=== PATIENT | female | born 1955 | race Caucasian/White ===

== ENCOUNTER 2021-08-20 12:23 | Inpatient (IN) | payer MEDICARE ==
[2021-08-20] MEDS ORDERED: Naloxone 0.4 MG/ML SDV IV PRN (13:49)
[2021-08-20] MEDS: Acetaminophen 500 MG Tab PO SCH ×2 (14:59→20:52)
[2021-08-20] MEDS: oxyCODONE 5 MG Tab PO PRN ×2 (15:01→22:15)
[2021-08-20] MEDS: Potassium Chloride 20 MEQ Tab.ER PO SCH (17:30)
[2021-08-20] MEDS: Gabapentin 600 MG Tab PO SCH (17:33)
--- NOTE | 2021-08-20 18:49 | PCM.HP.2 ---
H&P History of Present Illness - General Date of Service: 08/20/21 Admit Problem/Dx: Admission Diagnosis/Problem Admission Diagnosis/Problem Weakness Source of Information: Patient, Old Records, Provider History Limitations: Reports: No Limitations - History of Present Illness Initial Comments - Free Text/Narative: 66-year-old lady fractured her left arm and left hip following a mechanical fall. She had ORIF to repair her left arm fracture and has been transferred to swing bed for rehabilitation. Mechanical fall was on 13 August 2021. Patient's hospital course was complicated by minor delirium treated with Haldol which resulted in a long QTc. The symptoms have resolved following treatment. Patient also had blood loss anemia which is now improving. Postop day 1 hemoglobin was 10.8 and was 11.6 this morning. Transferring hospital reports that operative site for the ORIF of the left arm is intact with no bleeding, erythema, signs of infection, or discharge. Patient has chronic pulmonary symptoms including bronchitis and asthma. She has follow-up appointment scheduled with pulmonology. Patient had coronary ablation in 2007 now treated with metoprolol, well controlled. Transferring hospital recommends recheck electrolytes in 3 days. Patient's rhythm was sinus rhythm in the 60s to 70s throughout her stay. Left Hip Pain Score (Numeric/FACES): 6 - Related Data Allergies/Adverse Reactions: Allergies Allergy/AdvReac Type Severity Reaction Status Date / Time adhesive tape Allergy Rash Verified 08/20/21 14:36 omeprazole [From Prilosec] Allergy Nausea Verified 08/20/21 14:36 Home Medications: Home Meds Acetaminophen [Tylenol Extra Strength] 1,000 mg PO TID 08/20/21 [History] Aspirin [Ecotrin EC] 81 mg PO DAILY 08/20/21 [History] Azelastine HCl 2 spray NASBOTH DAILY 08/20/21 [History] Benzonatate 200 mg PO TID PRN 08/20/21 [History] Budesonide [Pulmicort] 2 ml INH BID 08/20/21 [History] Calcium Carbonate [Calcium] 600 mg PO DAILY 08/20/21 [History] Celecoxib [CeleBREX] 400 mg PO DAILY 08/20/21 [History] Enoxaparin [Lovenox] 40 mg SQ Q24H 08/20/21 [History] Escitalopram Oxalate [Lexapro] 10 mg PO DAILY 08/20/21 [History] Formoterol [Perforomist] 2 ml INH BID 08/20/21 [History] Gabapentin [Neurontin] 300 mg PO DAILY 08/20/21 [History] Gabapentin [Neurontin] 600 mg PO WITHDINNER 08/20/21 [History] Lansoprazole [Prevacid] 30 mg PO DAILY 08/20/21 [History] Letrozole [Femara] 2.5 mg PO DAILY 08/20/21 [History] Levalbuterol Tartrate [Xopenex HFA] 2 puff PO Q4H PRN 08/20/21 [History] Levothyroxine 25 mcg PO BEDTIME 08/20/21 [History] Melatonin 6 mg PO BEDTIME 08/20/21 [History] Metoprolol Succinate [Toprol XL] 12.5 mg PO DAILY 08/20/21 [History] Montelukast [Singulair] 10 mg PO DAILY 08/20/21 [History] Naloxone [Narcan] 0.4 mg IV ASDIRECTED PRN 08/20/21 [History] [place]-3 Fatty Acids/Fish Oil [Fish Oil 1,000 mg Capsule] 1 cap PO DAILY 08/20/21 [History] Potassium Chloride [Klor-Con M20] 20 meq PO DAILY 08/20/21 [History] Potassium Chloride [Klor-Con M20] 40 meq PO WITHDINNER 08/20/21 [History] SUMAtriptan 100 mg PO ASDIRECTED 08/20/21 [History] Sennosides/Docusate Sodium [Senna-S 8.6-50 mg Tablet] 1 tab PO BID 08/20/21 [History] Spironolactone [Aldactone] 12.5 mg PO DAILY 08/20/21 [History] Tiotropium [place] [Spiriva Respimat] 2 puff INH DAILY 08/20/21 [History] Topiramate 25 mg PO DAILY 08/20/21 [History] Topiramate 50 mg PO BEDTIME 08/20/21 [History] atorvaSTATin [Lipitor] 20 mg PO DAILY 08/20/21 [History] guaiFENesin [Robitussin] 10 ml PO Q6H PRN 08/20/21 [History] oxyCODONE 2.5 mg PO Q6H PRN 08/20/21 [History] oxyCODONE 5 mg PO Q6H PRN 08/20/21 [History] polyethylene glycoL 3350 [MiraLAX] 17 g PO DAILY 08/20/21 [History] traZODone HCl [Trazodone HCl] 50 mg PO BEDTIME 08/20/21 [History] Past Medical History HEENT History: Reports: None Other HEENT History: seasonal allergies Cardiovascular History: Reports: Hypertension Respiratory History: Reports: None Gastrointestinal History: Reports: GERD Genitourinary History: Reports: None W[employer] INST[employer]ER History: Reports: Dysfunctional Uterine Bleeding Musculoskeletal History: Reports: None Neurological History: Reports: None Hematologic History: Reports: Anesthesia Reaction Oncologic (Cancer) History: Reports: Breast - Past Surgical History HEENT Surgical History: Reports: None Cardiovascular Surgical History: Reports: None Female Surgical History: Reports: None Neurological Surgical History: Reports: None Musculoskeletal Surgical History: Reports: ORIF Social & Family History - Family History Cardiac: Reports: Hypertension GI: Reports: None OBGYN: Reports: None Musculoskeletal: Reports: None Psychiatric: Reports: None Immunologic: Reports: None Oncologic: Reports: Brain, Breast - Tobacco Use Tobacco Use Status *Q: Never Tobacco User Second Hand Smoke Exposure: No - Caffeine Use Caffeine Use: Reports: None - Recreational Drug Use Recreational Drug Use: No H&P Review of Systems - Review of Systems: Review Of Systems: See Below General: Reports: No Symptoms HEENT: Reports: No Symptoms Pulmonary: Reports: No Symptoms Cardiovascular: Reports: No Symptoms Gastrointestinal: Reports: No Symptoms Genitourinary: Reports: No Symptoms Musculoskeletal: Reports: Shoulder Pain, Arm Pain, Leg Pain Psychiatric: Reports: No Symptoms Neurological: Reports: No Symptoms Hematologic/Lymphatic: Reports: No Symptoms Immunologic: Reports: No Symptoms Exam - Exam Exam: See Below - Vital Signs Vital Signs: Last Vital Signs Temp 36.9 C 08/20/21 13:47 Pulse 72 08/20/21 13:47 Resp 20 08/20/21 13:47 BP 102/42 L 08/20/21 13:47 Pulse Ox 94 L 08/20/21 13:47 Weight: 100.199 kg - Exam Quality Assessment: Supplemental Oxygen, DVT Prophylaxis General: Alert, Oriented, Cooperative, Mild Distress HEENT: EOMI Lungs: Clear to Auscultation Cardiovascular: Regular Rate, Regular Rhythm, Systolic Murmur GI/Abdominal Exam: Normal Bowel Sounds, Soft, Non-Tender Back Exam: Normal Inspection. No: CVA Tenderness (R), CVA Tenderness (L) Extremities: Pedal Edema Peripheral Pulses: 2+: Radial (L), Radial (R), Dorsalis Pedis (L), Dorsalis Pedis (R) Skin: Warm, Dry Neurological: Cranial Nerves Intact Neuro Extensive - Mental Status: Alert, Oriented x3, Normal Mood/Affect, Normal Cognition Psychiatric: Alert, Normal Affect, Normal Mood Sepsis Event Note - Evaluation Sepsis Screening Result: No Definite Risk - Focused Exam Vital Signs: Vital Signs Temp Pulse Resp BP Pulse Ox 08/20/21 13:47 36.9 C 72 20 102/42 L 94 L - Problem List (1) Arm fracture, left SNOMED Code(s): 52187658 ICD Code: S42.302A - UNSP FRACTURE OF SHAFT OF HUMERUS, LEFT ARM, INIT Status: Acute Current Visit: Yes (2) Status post open reduction and internal fixation (ORIF) of fracture SNOMED Code(s): 758362507 ICD Code: Z98.890 - OTHER SPECIFIED POSTPROCEDURAL STATES; Z87.81 - PERSONAL HISTORY OF (HEALED) TRAUMATIC FRACTURE Status: Acute Current Visit: Yes (3) Acute blood loss anemia SNOMED Code(s): 977255746 ICD Code: D62 - ACUTE POSTHEMORRHAGIC ANEMIA Status: Acute Current Visit: Yes (4) Arrhythmia SNOMED Code(s): 517392612 ICD Code: I49.9 - CARDIAC ARRHYTHMIA, UNSPECIFIED Status: Chronic Current Visit: Yes (5) Asthma SNOMED Code(s): 127289773 ICD Code: J45.909 - UNSPECIFIED ASTHMA, UNCOMPLICATED Status: Chronic Current Visit: Yes (6) Closed left hip fracture SNOMED Code(s): 756750411 ICD Code: S72.002A - FRACTURE OF UNSP PART OF NECK OF LEFT FEMUR, INIT Status: Acute Current Visit: Yes (7) Weakness SNOMED Code(s): 97289935 ICD Code: R53.1 - WEAKNESS Status: Acute Current Visit: Yes (8) Obesity (BMI 30.0-34.9) SNOMED Code(s): 283366762790967 ICD Code: E66.9 - OBESITY, UNSPECIFIED Status: Chronic Current Visit: Yes (9) Hyperlipidemia SNOMED Code(s): 35051114 ICD Code: E78.5 - HYPERLIPIDEMIA, UNSPECIFIED Status: Chronic Current Visit: Yes (10) Hypothyroidism SNOMED Code(s): 91652805 ICD Code: E03.9 - HYPOTHYROIDISM, UNSPECIFIED Status: Chronic Current Visit: Yes Problem List Initiated/Reviewed/Updated: Yes Orders Last 24hrs: Active Orders 24 hr Category Date Time Status Patient Status [ADT] Routine ADT 08/20/21 13:47 Active Height and Weight [RC] WEEKLY Care 08/20/21 13:47 Active Oxygen Therapy [RC] PRN Care 08/20/21 13:47 Active RT Aerosol Therapy [RC] ASDIRECTED Care 08/20/21 13:55 Active Supplement (Dietary) [Dietary Supplements] [RC] Care 08/20/21 18:43 Ordered WITHMEALSANDBED VTE/DVT Education [RC] Per Unit Routine Care 08/20/21 13:47 Active Vital Signs [RC] PER UNIT ROUTINE Care 08/20/21 13:47 Active OT Evaluation and Treatment [CONS] Routine Cons 08/20/21 18:42 Ordered PT Evaluation and Treatment [CONS] Routine Cons 08/20/21 18:42 Ordered Regular Diet [DIET] Diet 08/21/21 Breakfast Ordered Acetaminophen [Tylenol Extra Strength] Med 08/20/21 15:00 Active 1,000 mg PO TID Arformoterol [Brovana] Med 08/20/21 21:00 Active 15 mcg INH BID Aspirin [Halfprin] Med 09/12/21 09:00 Active 81 mg PO DAILY Budesonide [Pulmicort] Med 08/20/21 21:00 Active 0.5 mg INH BID Calcium Carbonate [Oyster Shell Calcium] Med 08/21/21 09:00 Active 500 mg PO DAILY Celecoxib [CeleBREX] Med 08/21/21 09:00 Active 400 mg PO DAILY Docusate Sodium/Sennosides [Senna Plus] Med 08/20/21 21:00 Active 1 tab PO BID Enoxaparin [Lovenox] Med 08/21/21 09:00 Active 40 mg SUBCUT Q24H Escitalopram [Lexapro] Med 08/21/21 09:00 Active 10 mg PO DAILY Gabapentin [Neurontin] Med 08/21/21 09:00 Active 300 mg PO DAILY Gabapentin [Neurontin] Med 08/20/21 18:00 Active 600 mg PO WITHDINNER Letrozole [Femara] Med 08/21/21 09:00 Active 2.5 mg PO DAILY Levothyroxine Med 08/20/21 21:00 Active 25 mcg PO BEDTIME Melatonin Med 08/20/21 21:00 Active 6 mg PO BEDTIME Metoprolol Succinate [Toprol XL] Med 08/21/21 09:00 Active 12.5 mg PO DAILY Montelukast [Singulair] Med 08/21/21 09:00 Active 10 mg PO DAILY Naloxone [Narcan] Med 08/20/21 13:49 Active 0.4 mg IV ASDIRECTED PRN Pantoprazole [ProTONIX] Med 08/21/21 07:30 Active 40 mg PO ACBREAKFAST Potassium Chloride [Klor-Con M20] Med 08/21/21 09:00 Active 20 meq PO DAILY Potassium Chloride [Klor-Con M20] Med 08/20/21 18:00 Active 40 meq PO WITHDINNER Spironolactone [Aldactone] Med 08/21/21 09:00 Active 12.5 mg PO DAILY Tiotropium [place] [Spiriva Respimat] Med 08/21/21 09:00 Active 0 gm INH DAILY Topiramate [Topamax] Med 08/21/21 09:00 Active 25 mg PO DAILY Topiramate [Topamax] Med 08/20/21 21:00 Active 50 mg PO BEDTIME atorvaSTATin [Lipitor] Med 08/21/21 09:00 Active 20 mg PO DAILY guaiFENesin [Robitussin] Med 08/20/21 13:49 Active 200 mg PO Q6H PRN levalbuterol HCL [Xopenex] Med 08/20/21 14:31 Active 1.25 mg INH Q4H PRN oxyCODONE Med 08/20/21 13:49 Active 2.5 mg PO Q6H PRN oxyCODONE Med 08/20/21 13:49 Active 5 mg PO Q6H PRN polyethylene glycoL 3350 [MiraLAX] Med 08/21/21 09:00 Active 17 gm PO DAILY traZODone Med 08/20/21 21:00 Active 50 mg PO BEDTIME Resuscitation Status Routine Resus Stat 08/20/21 13:47 Ordered Medication Orders Acetaminophen (Acetaminophen 500 Mg Tab) 1,000 mg PO TID [facility] Last Admin: 08/20/21 14:59 Dose: 1,000 mg Documented by: [place] Arformoterol Tartrate (Arformoterol 15 Mcg/2 Ml Neb Soln) 15 mcg INH BID [facility] Aspirin (Aspirin 81 Mg Tab.Ec) 81 mg PO DAILY [facility] Atorvastatin Calcium (Atorvastatin 20 Mg Tab) 20 mg PO DAILY [facility] Budesonide (Budesonide 0.5 Mg/2 Ml Neb Susp) 0.5 mg INH BID [facility] Calcium Carbonate/Glycine (Calcium Carbonate 500 Mg Tablet) 500 mg PO DAILY [facility] Celecoxib (Celecoxib 200 Mg Cap) 400 mg PO DAILY [facility] Enoxaparin Sodium (Enoxaparin 40 Mg/0.4 Ml Syringe) 40 mg SUBCUT Q24H [facility] Stop: 09/11/21 23:59 Escitalopram Oxalate (Escitalopram 10 Mg Tab) 10 mg PO DAILY [facility] Gabapentin (Gabapentin 300 Mg Cap) 300 mg PO DAILY [facility] Gabapentin (Gabapentin 600 Mg Tab) 600 mg PO WITHDINNER [facility] Last Admin: 08/20/21 17:33 Dose: 600 mg Documented by: [place] Guaifenesin (Guaifenesin 100 Mg/5 Ml Soln 5 Ml Ud Cup) 200 mg PO Q6H PRN PRN Reason: Cough Letrozole (Letrozole 2.5 Mg Tab) 2.5 mg PO DAILY [facility] Levalbuterol HCl (Levalbuterol Hcl 1.25 Mg/3 Ml Neb) 1.25 mg INH Q4H PRN PRN Reason: Shortness of Breath Levothyroxine Sodium (Levothyroxine 25 Mcg Tab) 25 mcg PO BEDTIME [facility] Melatonin (Melatonin 3 Mg Tab) 6 mg PO BEDTIME [facility] Metoprolol Succinate (Metoprolol Succinate 25 Mg Tab.Er) 12.5 mg PO DAILY [facility] Montelukast Sodium (Montelukast 10 Mg Tab) 10 mg PO DAILY [facility] Naloxone HCl (Naloxone 0.4 Mg/Ml Sdv) 0.4 mg IV ASDIRECTED PRN PRN Reason: Other Oxycodone HCl (Oxycodone 5 Mg Tab) 2.5 mg PO Q6H PRN PRN Reason: Pain (moderate 4-6) Oxycodone HCl (Oxycodone 5 Mg Tab) 5 mg PO Q6H PRN PRN Reason: Pain (severe 7-10) Last Admin: 08/20/21 15:01 Dose: 5 mg Documented by: [place] Pantoprazole Sodium (Pantoprazole 40 Mg Tab.Cr) 40 mg PO ACBREAKFAST [facility] Polyethylene Glycol (Polyethylene Glycol 3350 Powder 17 Gm Packet) 17 gm PO DAILY [facility] Potassium Chloride (Potassium Chloride 20 Meq Tab.Er) 20 meq PO DAILY [facility] Potassium Chloride (Potassium Chloride 20 Meq Tab.Er) 40 meq PO WITHDINNER [facility] Last Admin: 08/20/21 17:30 Dose: 40 meq Documented by: [place] Senna/Docusate Sodium (Docusate Sodium/Sennosides 50-8.6 Mg Tab) 1 tab PO BID [facility] Spironolactone (Spironolactone 25 Mg Tab) 12.5 mg PO DAILY [facility] Tiotropium [place] (Tiotropium [place] 4 Gm Inhalation [place] (2.5mcg/1 Dose; 10 Doses)) 0 gm INH DAILY [facility] Topiramate (Topiramate 50 Mg Tab) 50 mg PO BEDTIME [facility] Topiramate (Topiramate 50 Mg Tab) 25 mg PO DAILY [facility] Trazodone HCl (Trazodone 50 Mg Tab) 50 mg PO BEDTIME [facility] Assessment/Plan Comment:: Patient admitted to swing bed for rehabilitation secondary to fracture of the left hip and left arm secondary to mechanical fall. Restart patient's home medications for chronic diseases. Patient will have follow-up with pulmonology due to chronic lung disease. Recheck electrolytes in 3 days secondary to history of cardiac arrhythmia with ablation procedure in 2007. Recheck hemoglobin/hematocrit secondary to history of acute blood loss anemia following fractures and surgery.
[2021-08-20] MEDS: traZODone 50 MG Tab PO SCH (20:52)
[2021-08-20] MEDS: Melatonin 3 MG Tab PO SCH (20:52)
[2021-08-20] MEDS: Levothyroxine 25 MCG Tab PO SCH (20:52)
[2021-08-20] MEDS: Topiramate 50 MG Tab PO SCH (20:52)
[2021-08-20] MEDS: Budesonide 0.5 MG/2 ML Neb Susp INH SCH (20:53)
[2021-08-20] MEDS: Arformoterol 15 MCG/2 ML Neb Soln INH SCH (20:53)
[2021-08-21] MEDS ORDERED: SUMAtriptan 50 MG Tab PO PRN (02:20)
[2021-08-21] MEDS: Pantoprazole 40 MG Tab.CR PO SCH (07:00)
[2021-08-21] MEDS: oxyCODONE 5 MG Tab PO PRN (08:15)
[2021-08-21] MEDS: Gabapentin 300 MG Cap PO SCH (08:15)
[2021-08-21] MEDS: Celecoxib 200 MG Cap PO SCH (08:31)
[2021-08-21] MEDS: Potassium Chloride 20 MEQ Tab.ER PO SCH ×2 (08:31→17:37)
[2021-08-21] MEDS: atorvaSTATin 20 MG Tab PO SCH (08:31)
[2021-08-21] MEDS: Montelukast 10 MG Tab PO SCH (08:31)
[2021-08-21] MEDS: Spironolactone 25 MG Tab PO SCH (08:31)
[2021-08-21] MEDS: Calcium Carbonate 500 MG Tablet PO SCH (08:31)
[2021-08-21] MEDS: Tiotropium Bromide 4 GM Inhalation Spray (2.5mcg/1 dose; 10 doses) INH SCH (08:31)
[2021-08-21] MEDS: Acetaminophen 500 MG Tab PO SCH ×3 (08:31→19:59)
[2021-08-21] MEDS: Escitalopram 10 MG Tab PO SCH (08:31)
[2021-08-21] MEDS: Enoxaparin 40 MG/0.4 ML Syringe SUBCUT SCH (08:32)
[2021-08-21] MEDS: Polyethylene Glycol 3350 Powder 17 GM Packet PO SCH (08:32)
[2021-08-21] MEDS: Arformoterol 15 MCG/2 ML Neb Soln INH SCH ×2 (08:32→20:03)
[2021-08-21] MEDS: Topiramate 50 MG Tab PO SCH ×2 (08:32→20:02)
[2021-08-21] MEDS: Budesonide 0.5 MG/2 ML Neb Susp INH SCH ×2 (08:32→20:01)
[2021-08-21] MEDS: Metoprolol Succinate 25 MG Tab.ER PO SCH (08:33)
[2021-08-21] MEDS ORDERED: Non-Formulary Medication 1 Each (Azelastine Hcl [Azelastine Hcl] 137 MCG/0.137 ML Spray.Pu NASBOTH SCH (09:00)
[2021-08-21] MEDS: Gabapentin 600 MG Tab PO SCH (17:36)
[2021-08-21] MEDS: Levothyroxine 25 MCG Tab PO SCH (20:00)
[2021-08-21] MEDS: Melatonin 3 MG Tab PO SCH (20:00)
[2021-08-21] MEDS: traZODone 50 MG Tab PO SCH (20:03)
[2021-08-22] MEDS: Pantoprazole 40 MG Tab.CR PO SCH (06:37)
[2021-08-22] MEDS: oxyCODONE 5 MG Tab PO PRN ×3 (08:02→21:16)
[2021-08-22] MEDS: Tiotropium Bromide 4 GM Inhalation Spray (2.5mcg/1 dose; 10 doses) INH SCH (08:04)
[2021-08-22] MEDS: Spironolactone 25 MG Tab PO SCH (08:10)
[2021-08-22] MEDS: Celecoxib 200 MG Cap PO SCH (08:11)
[2021-08-22] MEDS: Arformoterol 15 MCG/2 ML Neb Soln INH SCH ×2 (08:11→20:20)
[2021-08-22] MEDS: atorvaSTATin 20 MG Tab PO SCH (08:12)
[2021-08-22] MEDS: Potassium Chloride 20 MEQ Tab.ER PO SCH ×2 (08:12→17:48)
[2021-08-22] MEDS: Escitalopram 10 MG Tab PO SCH (08:12)
[2021-08-22] MEDS: Gabapentin 300 MG Cap PO SCH (08:13)
[2021-08-22] MEDS: Calcium Carbonate 500 MG Tablet PO SCH (08:13)
[2021-08-22] MEDS: Enoxaparin 40 MG/0.4 ML Syringe SUBCUT SCH (08:13)
[2021-08-22] MEDS: Polyethylene Glycol 3350 Powder 17 GM Packet PO SCH (08:13)
[2021-08-22] MEDS: Topiramate 50 MG Tab PO SCH ×2 (08:14→20:19)
[2021-08-22] MEDS: Montelukast 10 MG Tab PO SCH (08:14)
[2021-08-22] MEDS: Budesonide 0.5 MG/2 ML Neb Susp INH SCH ×2 (08:14→20:20)
[2021-08-22] MEDS: Metoprolol Succinate 25 MG Tab.ER PO SCH (08:15)
[2021-08-22] MEDS: Acetaminophen 500 MG Tab PO SCH ×3 (08:15→20:24)
[2021-08-22] MEDS: Gabapentin 600 MG Tab PO SCH (17:49)
[2021-08-22] MEDS: Levothyroxine 25 MCG Tab PO SCH (20:18)
[2021-08-22] MEDS: traZODone 50 MG Tab PO SCH (20:19)
[2021-08-22] MEDS: Melatonin 3 MG Tab PO SCH (20:19)
[2021-08-23] MEDS: oxyCODONE 5 MG Tab PO PRN ×3 (03:50→17:49)
[2021-08-23] MEDS: Pantoprazole 40 MG Tab.CR PO SCH (08:12)
[2021-08-23] MEDS: Gabapentin 300 MG Cap PO SCH (08:12)
[2021-08-23] MEDS: Tiotropium Bromide 4 GM Inhalation Spray (2.5mcg/1 dose; 10 doses) INH SCH (08:13)
[2021-08-23] MEDS: Arformoterol 15 MCG/2 ML Neb Soln INH SCH ×2 (08:14→20:13)
[2021-08-23] MEDS: Spironolactone 25 MG Tab PO SCH (08:16)
[2021-08-23] MEDS: Enoxaparin 40 MG/0.4 ML Syringe SUBCUT SCH (08:18)
[2021-08-23] MEDS: Escitalopram 10 MG Tab PO SCH (08:18)
[2021-08-23] MEDS: Potassium Chloride 20 MEQ Tab.ER PO SCH ×2 (08:18→17:48)
[2021-08-23] MEDS: atorvaSTATin 20 MG Tab PO SCH (08:18)
[2021-08-23] MEDS: Calcium Carbonate 500 MG Tablet PO SCH (08:19)
[2021-08-23] MEDS: Celecoxib 200 MG Cap PO SCH (08:19)
[2021-08-23] MEDS: Polyethylene Glycol 3350 Powder 17 GM Packet PO SCH (08:19)
[2021-08-23] MEDS: Budesonide 0.5 MG/2 ML Neb Susp INH SCH ×2 (08:20→20:13)
[2021-08-23] MEDS: Topiramate 50 MG Tab PO SCH ×2 (08:21→20:14)
[2021-08-23] MEDS: Acetaminophen 500 MG Tab PO SCH ×3 (08:22→20:14)
[2021-08-23] MEDS: Montelukast 10 MG Tab PO SCH (08:23)
[2021-08-23] MEDS: guaiFENesin 100 MG/5 ML Soln 5 ML UD Cup PO PRN (08:23)
[2021-08-23] MEDS: Metoprolol Succinate 25 MG Tab.ER PO SCH (08:29)
[2021-08-23] MEDS: Levalbuterol HCl 1.25 MG/3 ML Neb INH PRN (14:30)
[2021-08-23] MEDS ORDERED: Albuterol 8 GM Inhaler INH PRN (15:46)
[2021-08-23] MEDS: Gabapentin 600 MG Tab PO SCH (17:48)
[2021-08-23] MEDS: Melatonin 3 MG Tab PO SCH (20:13)
[2021-08-23] MEDS: Levothyroxine 25 MCG Tab PO SCH (20:13)
[2021-08-23] MEDS: traZODone 50 MG Tab PO SCH (20:14)
[2021-08-24] MEDS: oxyCODONE 5 MG Tab PO PRN ×2 (06:19→22:30)
[2021-08-24] MEDS: Pantoprazole 40 MG Tab.CR PO SCH (06:52)
[2021-08-24] MEDS ORDERED: Bisacodyl 10 MG Supp RECTAL PRN (07:42)
[2021-08-24] MEDS: Tiotropium Bromide 4 GM Inhalation Spray (2.5mcg/1 dose; 10 doses) INH SCH (09:27)
[2021-08-24] MEDS: Budesonide 0.5 MG/2 ML Neb Susp INH SCH ×2 (09:27→20:00)
[2021-08-24] MEDS: Arformoterol 15 MCG/2 ML Neb Soln INH SCH ×2 (09:27→20:00)
[2021-08-24] MEDS: Metoprolol Succinate 25 MG Tab.ER PO SCH (09:31)
[2021-08-24] MEDS: atorvaSTATin 20 MG Tab PO SCH (09:31)
[2021-08-24] MEDS: Spironolactone 25 MG Tab PO SCH (09:31)
[2021-08-24] MEDS: Montelukast 10 MG Tab PO SCH (09:31)
[2021-08-24] MEDS: Calcium Carbonate 500 MG Tablet PO SCH (09:32)
[2021-08-24] MEDS: Escitalopram 10 MG Tab PO SCH (09:32)
[2021-08-24] MEDS: Acetaminophen 500 MG Tab PO SCH ×3 (09:33→20:00)
[2021-08-24] MEDS: Celecoxib 200 MG Cap PO SCH (09:33)
[2021-08-24] MEDS: Potassium Chloride 20 MEQ Tab.ER PO SCH ×2 (09:34→17:05)
[2021-08-24] MEDS: Topiramate 50 MG Tab PO SCH ×2 (09:34→20:01)
[2021-08-24] MEDS: Polyethylene Glycol 3350 Powder 17 GM Packet PO SCH (09:35)
[2021-08-24] MEDS: Enoxaparin 40 MG/0.4 ML Syringe SUBCUT SCH (09:35)
[2021-08-24] MEDS: Gabapentin 300 MG Cap PO SCH (09:40)
[2021-08-24] MEDS: Gabapentin 600 MG Tab PO SCH (17:08)
[2021-08-24] MEDS: Levothyroxine 25 MCG Tab PO SCH (20:00)
[2021-08-24] MEDS: Melatonin 3 MG Tab PO SCH (20:00)
[2021-08-24] MEDS: traZODone 50 MG Tab PO SCH (20:01)
[2021-08-25] MEDS: Pantoprazole 40 MG Tab.CR PO SCH (07:31)
[2021-08-25] MEDS ORDERED: Albuterol 8 GM Inhaler INH PRN (07:57)
[2021-08-25] MEDS: Metoprolol Succinate 25 MG Tab.ER PO SCH (08:35)
[2021-08-25] MEDS: Spironolactone 25 MG Tab PO SCH (08:35)
[2021-08-25] MEDS: Escitalopram 10 MG Tab PO SCH (08:37)
[2021-08-25] MEDS: Celecoxib 200 MG Cap PO SCH (08:37)
[2021-08-25] MEDS: Topiramate 50 MG Tab PO SCH ×2 (08:37→20:07)
[2021-08-25] MEDS: Acetaminophen 500 MG Tab PO SCH ×3 (08:38→20:07)
[2021-08-25] MEDS: Potassium Chloride 20 MEQ Tab.ER PO SCH ×2 (08:38→17:45)
[2021-08-25] MEDS: Tiotropium Bromide 4 GM Inhalation Spray (2.5mcg/1 dose; 10 doses) INH SCH (08:39)
[2021-08-25] MEDS: Calcium Carbonate 500 MG Tablet PO SCH (08:41)
[2021-08-25] MEDS: Budesonide 0.5 MG/2 ML Neb Susp INH SCH ×2 (08:41→20:09)
[2021-08-25] MEDS: Montelukast 10 MG Tab PO SCH (08:41)
[2021-08-25] MEDS: Arformoterol 15 MCG/2 ML Neb Soln INH SCH ×2 (08:42→20:09)
[2021-08-25] MEDS: Enoxaparin 40 MG/0.4 ML Syringe SUBCUT SCH (08:42)
[2021-08-25] MEDS: atorvaSTATin 20 MG Tab PO SCH (08:42)
[2021-08-25] MEDS: Polyethylene Glycol 3350 Powder 17 GM Packet PO SCH (08:42)
[2021-08-25] MEDS: Gabapentin 300 MG Cap PO SCH (08:43)
[2021-08-25] MEDS: oxyCODONE 5 MG Tab PO PRN ×2 (08:45→20:10)
--- OUTSIDE RECORDS SUMMARY | 2021-08-25 15:48 | XMSREPORT ---
:1955 Author Organization 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 Pt r an into hitch of pickup falling to ground. Sustained radial ulnar fx/le ft hip fx. Arrives in c-collar. CMS intact to L hand and L leg Auth/Cert Status Reason Specialty Diagnoses / Procedures Referred By C ontact Referred To Contact Encounter Details Date Type Department Care Team Description 08/13/2021 - Hospital Encounter [facility] Department [address] [place] [address] [phone] Wrist fracture 08/20/[address] Suresh Regalado MD [address] [place] [address] [phone] Alicia Jerome MD [address] [place] [address] [phone] [facility] Jr Joiner MD [address], [place] [address] [phone] [place] [address] Vivian Kong MD [address] [place] [address] [phone] Allergies Active Allergy Reactions Severity Noted Date Comments Adhesives Rash Medium 06/18/2021 Omeprazole Nausea 09/16/2017 documented as of this encounter (statuses as of 08/20/2021) Medications Medication Sig Dispensed Refills Start End Status Date Date acetaminophen Take 2 tablets 0 08/20/20 A ctive (TYLENOL) 500 mg (1,000 mg) by 21 tabletIndications: mouth 3 times a Left displaced day femoral neck fracture (HCC), Hyperlipidemia, unspecified hyperlipidemia type aspirin 81 mg Take 1 tablet (81 30 tablet 0 08/20/20 Active enteric coated mg) by mouth 1 21 tabletIndications: time per day History of Resume home cardiovascular aspirin 81 mg disorder daily on 09/12/2021 after completing DVT prophylaxis with Lovenox SC for 28 days post-op acetaminophen-codei Take 1 tablet by 30 tablet 0 08/20/20 Active ne #3 (TYLENOL #3) mouth Every 8 21 300-30 MG tablet hours as needed for severe pain HYDROmorphone Administer 0.5 mL 0 08/20/20 Active (DILAUDID) 0.5 (0.5 mg) 21 mg/0.5 mL SOLN intravenously injection solution Every 4 hours as (conc: 0.5 needed for mg/0.5mL)Indication breakthrough pain s: Left displaced femoral neck fracture (HCC), Hyperlipidemia, unspecified hyperlipidemia type oxyCODONE (OXY-IR) Take 0.5 tablets 0 08/20/20 Active 5 mg tablet (2.5 mg) by mouth 21 (immediate every 6 hours as release)Indications needed for : Left displaced moderate pain femoral neck fracture (HCC), Hyperlipidemia, unspecified hyperlipidemia type oxyCODONE (OXY-IR) Take 1 tablet (5 12 tablet 0 08/20/20 10/0 2/2 Active 5 mg tablet mg) by mouth 21 021 (immediate every 6 hours as release)Indications needed for severe : Hyperlipidemia, pain for up to 3 unspecified days hyperlipidemia type celecoxib Take 1 capsule 0 08/20/20 Activ e (CELEBREX) 400 mg (400 mg) by mouth 21 capsule 1 time per day budesonide Inhale 2 nebule 0 08/20/20 Act taye (PULMICORT) 0.5 (1 mg) by 21 022 mg/2 mL inhalation nebulization 2 solutionIndications times a day Rinse : Chronic mouth with water bronchitis, after use. unspecified chronic bronchitis type (HCC) budesonide-formoter Inhale 2 puffs 0 08/20/20 Active ol (SYMBICORT) orally 2 times a 21 160-4.5 mcg/puff day Shake well inhalerIndications: before using. Chronic bronchitis, Rinse mouth after unspecified chronic use. bronchitis type (HCC) SPIRIVA RESPIMAT Inhale 2 puffs (1 0 08/20/20 Active 1.25 MCG/ACT dose) EVERY DAY 21 inhaler (Asthma)Indications : Chronic bronchitis, unspecified chronic bronchitis type (HCC) PERFOROMIST 20 GIVE 1 VIAL 0 08/20/20 Act taye MCG/2ML inhalation INHALATION TWICE 21 solutionIndications A DAY : Chronic bronchitis, unspecified chronic bronchitis type (HCC) levalbuterol Inhale 2 puffs by 45 g 0 08/20/20 Active (XOPENEX HFA) 45 INHALATION route 21 MCG/ACT EVERY 4 HOURS inhalerIndications: NEEDED Chronic bronchitis, unspecified chronic bronchitis type (HCC) montelukast Take 1 tablet 0 08/20/20 Acti ve (SINGULAIR) 10 mg every day by oral 21 tabletIndications: route. Seasonal allergies enoxaparin Inject 40 mg 0 08/21/20 Active (LOVENOX) 40 mg subcutaneously 1 021 syringe (100 mg/mL) time per day for subcutaneous 22 days injection solutionIndications : Left displaced femoral neck fracture (HCC), Closed fracture of proximal end of left ulna, unspecified fracture morphology, initial encounter, Hip fracture (HCC) gabapentin Take 1 capsule 0 08/20/20 Acti ve (NEURONTIN) 300 mg (300 mg) in the 21 capsuleIndications: morning and 2 Other capsules (600 mg) polyneuropathy with dinner topiramate Take 1 tablet (25 90 tablet 4 08/21/20 A ctive (TOPAMAX) 25 mg mg) by mouth 1 022 tabletIndications: time a day in the Obesity (BMI morning 30.0-34.9) topiramate Take 1 tablet (50 90 tablet 4 08/20/20 A ctive (TOPAMAX) 50 mg mg) by mouth 022 tabletIndications: every night at Obesity (BMI bedtime 30.0-34.9) escitalopram Take 1 tablet (10 0 08/20/20 Active (LEXAPRO) 10 mg mg) by mouth 1 21 tabletIndications: time per day Depressive disorder traZODone (DESYREL) Take 1 tablet (50 0 08/20/20 Active 50 mg mg) by mouth 21 tabletIndications: every night at Insomnia, bedtime unspecified type nalOXone (NARCAN) Inject 0.5 mL 0 08/20/20 Active 0.4 MG/ML SOLN (0.2 mg) as 21 injection solution directed as (vial)Indications: needed for other Opioid-Induced (Specify) (opioid Respiratory induced Depression respiratory depression - PARTIAL reversal) Indications: Significant Decrease in Breathing due to Opioid Drugs nalOXone (NARCAN) Inject 1 mL (0.4 0 08/20/20 Active 0.4 MG/ML SOLN mg) as directed 21 injection solution as needed for (vial)Indications: other (Specify) Opioid-Induced (opioid induced Respiratory Arrest respiratory arrest - FULL reversal) Indications: OPIOID-INDUCED RESPIRATORY ARREST atorvaSTATin Take 1 tablet (20 0 08/20/20 Active (LIPITOR) 20 mg mg) by mouth 1 21 tabletIndications: time per day Hyperlipidemia, unspecified hyperlipidemia type letrozole (FEMARA) Take 1 tablet 0 08/20/20 Active 2.5 mg (2.5 mg) by mouth 21 tabletIndications: 1 time per day History of breast cancer benzonatate Take 1 capsule 42 capsule 0 08/20/20 Ac tive (TESSALON) 200 MG (200 mg) by mouth 21 capsule 3 times a day as needed metoprolol Take 0.5 tablets 0 08/20/20 Ac tive succinate (TOPROL (12.5 mg) by 21 XL) 25 mg SR tablet mouth 1 time per (24 hr)Indications: day Other cardiac arrhythmia guaiFENesin Take 10 mL by 0 08/20/20 Acti ve (ROBITUSSIN) 100 mouth every 6 21 MG/5ML hours as needed SOLNIndications: for cough Cough azelastine [place] 2 sprays 90 mL 0 08/20/20 Acti ve (ASTELIN) 137 into each nostril 21 mcg/spray nasal 1 time per day sprayIndications: Seasonal allergies spironolactone Take 0.5 tablets 0 08/20/20 Active (ALDACTONE) 25 mg (12.5 mg) by 21 tabletIndications: mouth 1 time per Edema, peripheral day polyethylene glycol Take 1 packet by 0 08/21/20 Active (MIRALAX) 17 g mouth 1 time per 21 packetIndications: day Dissolve in 4 Left displaced to 8 ounces of femoral neck water, juice, fracture (HCC) soda, coffee, tea. senna-docusate Take 1 tablet by 0 08/20/20 Active sodium mouth 2 times a 21 (SENOKOT-S;PERICOLA day CE) 8.6-50 MG tabletIndications: Left displaced femoral neck fracture (HCC) melatonin 3 mg Take 2 tablets (6 30 tablet 0 08/20/20 Active tabletIndications: mg) by mouth 21 Insomnia, every night at unspecified type bedtime sumatriptan Take 1 tablet 0 08/20/20 Acti ve (IMITREX) 100 mg (100 mg) in the 21 tablet morning and 2 tablets (200 mg) at bedtime SUMAtriptan INJECT 0.5 ML 0 08/20/20 Acti ve (IMITREX) 6 UNDER THE SKIN 21 MG/0.5ML NEEDED. subcutaneous injection (auto-injector) SUMAtriptan Refill Inject 0.5 mL (6 0 08/20/20 Active (IMITREX STATDOSE mg) 21 REFILL) 6 MG/0.5ML subcutaneously as SOCT injection needed calcium carbonate Take 1 tablet 30 tablet 0 08/20/20 Active 600 mg (600 mg) by mouth 21 tabletIndications: 1 time per day Takes dietary supplements potassium chloride Take 1 tablet (20 90 tablet 3 08/20/20 Active (KLOR-CON M20) 20 mEq) in the 21 MEQ CR morning and 2 tabletIndications: tablets (40 mEq) Hypokalemia in the evening omega-3 fatty acids Take 1 capsule 100 capsule 0 08/20/20 Active (FISH OIL) 1000 mg every day by oral 21 capsuleIndications: route. Hyperlipidemia, unspecified hyperlipidemia type levothyroxine 25 Take 1 tablet (25 0 08/20/20 Active mcg mcg) by mouth 1 21 tabletIndications: time per day Hypothyroidism (acquired) lansoprazole Take 1 capsule 30 capsule 0 08/20/20 A ctive (PREVACID) 30 mg (30 mg) by mouth 21 capsuleIndications: 1 time a day in Gastroesophageal the morning reflux disease, unspecified whether esophagitis present lansoprazole Take 30 mg by 0 08/21/20 Dis continued (PREVACID) 30 mg mouth 1 time a (Reorder) capsule day in the morning. sumatriptan Take 1 tablet 0 08/11/20 Disc ontinued (IMITREX) 100 mg (100 mg) in the (Reorder) tablet morning and 2 tablets (200 mg) at bedtime SUMAtriptan Refill Inject 6 mg 0 Discontinued (IMITREX STATDOSE subcutaneously as (Reorder) REFILL) 6 MG/0.5ML needed. SOLN injection Calcium Carbonate Take 600 mg by 0 Discontinued (CALCIUM 600 PO) mouth 1 time per (entry rep day. error) aspirin 81 mg Take 81 mg by 0 Di scontinued enteric coated mouth 1 time per (Reorder) tablet day potassium chloride Take 1 tablet (20 0 01/26/ Discontinued (KLOR-CON M20) 20 mEq) in the (Reorder) MEQ CR tablet morning and 2 tablets (40 mEq) in the evening atorvaSTATin TAKE 1 TABLET BY 0 08/14/20 Discontinued (LIPITOR) 20 mg MOUTH EVERY DAY. (Reorder) tablet topiramate TAKE 1 TABLET BY 0 08/14/20 Di scontinued (TOPAMAX) 25 mg MOUTH IN THE ( Stop Taking tablet MORNING AND 2 at Dis charge) TABLETS AT BEDTIME celecoxib TAKE ONE CAPSULE 0 08/14/20 Dis continued (CELEBREX) 400 mg BY MOUTH EVERY (Reorder) capsule DAY omega-3 fatty acids Take 1 capsule 0 09/09/2008/20 Discontinued (FISH OIL) 1000 mg every day by oral (Reorder) capsule route. budesonide INHALE 2 vials BY 0 D iscontinued (PULMICORT) 0.5 MOUTH TWICE 021 (S top Taking mg/2 mL inhalation DAILY. a t Discharge) solution montelukast Take 1 tablet 0 11/13/20 Disc ontinued (SINGULAIR) 10 mg every day by oral (Reorder) tablet route. spironolactone Take 12.5 mg by 0 08/14/20 Discontinued (ALDACTONE) 25 mg mouth 1 time per (Reorder) tablet day azelastine [place] 2 sprays 0 Disc ontinued (ASTELIN) 137 into each nostril 021 (Reorder) mcg/spray nasal 1 time per day spray benzonatate Take 200 mg by 0 Dis continued (TESSALON) 200 MG mouth 3 times a (Reorder) capsule day as needed budesonide-formoter Inhale 2 puffs 0 08/20 Discontinued ol (SYMBICORT) orally 2 times a (Reorder) 160-4.5 mcg/puff day Shake well inhaler before using. Rinse mouth after use. budesonide Nebulize one 0 05/21/20 Discon tinued (PULMICORT) 1 unit-dose for (S top Taking MG/2ML inhalation inhalation TWICE at Discharge) solution DAILY escitalopram Take 10 mg by 0 04/14/20 Dis continued (LEXAPRO) 10 mg mouth 1 time per (Reorder) tablet day PERFOROMIST 20 GIVE 1 VIAL 0 05/23/20 Dis continued MCG/2ML inhalation INHALATION TWICE (Reorder) solution A DAY gabapentin Take 1 capsule 0 06/18/20 Disc ontinued (NEURONTIN) 300 mg (300 mg) in the (Reorder) capsule morning and 2 capsules (600 mg) with dinner letrozole (FEMARA) Take 2.5 mg by 0 05/05/20 Discontinued 2.5 mg tablet mouth 1 time per (Reorder) day levalbuterol Inhale 2 puffs by 0 05/23/20 Discontinued (XOPENEX HFA) 45 INHALATION route (Reorder) MCG/ACT inhaler EVERY 4 HOURS NEEDED metoprolol Take 12.5 mg by 0 04/23/20 Dis continued succinate (TOPROL mouth 1 time per (Reorder) XL) 25 mg SR tablet day (24 hr) SUMAtriptan INJECT 0.5 ML 0 05/05/20 Disc ontinued (IMITREX) 6 UNDER THE SKIN (Reorder) MG/0.5ML NEEDED. subcutaneous injection (auto-injector) SPIRIVA RESPIMAT Inhale 2 puffs (1 0 05/23/2008/20 Discontinued 1.25 MCG/ACT dose) EVERY DAY ( Reorder) inhaler (Asthma) traZODone (DESYREL) Take 50 mg by 0 05/05/20 Discontinued 50 mg tablet mouth every night (Reorder) at bedtime indomethacin Take 1 capsule 42 capsule 0 07/21/20 D iscontinued (INDOCIN) 25 mg (25 mg) by mouth (Stop Taking capsuleIndications: 3 times a day at Discharge) Rib pain with meals for 14 days acetaminophen-codei Take 1 tablet by 30 tablet 0 07/21/20 Discontinued ne #3 (TYLENOL #3) mouth Every 8 (Reorder) 300-30 MG tablet hours as needed for severe pain levothyroxine 25 Take 25 mcg by 0 05/01/20 Discontinued mcg tablet mouth 1 time per (R eorder) day calcium carbonate Take 600 mg by 0 Discontinued 600 mg tablet mouth 1 time per (Reorder) day documented as of this encounter (statuses as of 08/20/2021) Active Problems Problem Noted Date Wrist fracture 08/13/2021 Hip fracture 08/13/2021 Edema, peripheral 07/01/2021 Seasonal allergies 01/25/2020 Chronic obstructive lung disease 11/12/2019 Hypokalemia 10/05/2017 Arthritis 06/10/2017 Depressive disorder 06/10/2017 Hyperlipidemia 06/10/2017 Hypertensive disorder 06/10/2017 Insomnia 06/10/2017 Migraine 06/10/2017 Family history of colon cancer requiring screening col onoscopy 03/12/2015 History of colonic polyps 03/12/2015 Other specified cardiac dysrhythmias(427.89) 8 Other premature beats 04/19/2008 History of malignant neoplasm of breast 03/09/2008 Gastroesophageal reflux disease 03/09/2008 History of cardiovascular disorder 03/09/2008 Spinal stenosis, unspecified region other than cervica l 03/09/2008 Acquired absence of breast and nipple 03/09/2008 Personal history of other diseases of circulatory syst em 03/09/2008 documented as of this encounter (statuses as of 08/20/2021) Immunizations Name Administration Dates Next Due Influenza Vaccine,unspecified 09/04/2020, 08/24/2019, 2017, 09/02/2017, 08/22/2016 TDAP 10/21/2015 Zoster Live(Zostavax) 10/23/2015 Zoster Recombinant (Shingrix) 11/09/2018, 09/09/2018 documented as of this encounter Social History Tobacco Use Types Packs/Day Years Used Date Never Smoker Smokeless Tobacco: Never Used Alcohol Use Standard Drinks/Week Comments No 0 (1 standard drink = 0.6 oz pure alcoho l) Sex Assigned at Date Recorded Female 07/01/2021 9:54 PM CDT documented as of this encounter Last Filed Vital Signs Vital Sign Reading Time Taken Comments Blood Pressure 112/54 08/20/2021 7:42 AM CDT Pulse 71 08/20/2021 7:42 AM CDT Temperature 36.9 C (98.4 F) 08/20/2021 7:00 AM CDT Respiratory Rate 16 08/20/2021 7:00 AM CDT Oxygen Saturation 94% 08/20/2021 7:00 AM CDT Inhaled Oxygen Concentration - - Weight 101 kg (222 lb 9.6 oz) 08/19/2021 11:30 AM CDT Height 172.7 cm (5' 8") 08/16/2021 3:00 PM CDT Body Mass Index 33.85 08/16/2021 3:00 PM CDT documented in this encounter Functional Status Functional Status Response Date of Assessment Do you have difficulty with walking, balance, climbing No 09/16/2017 stairs, or had a fall in the last 3 months? documented as of this encounter Discharge Summaries Not on filedocumented in this encounter Medications at Time of Discharge Medication Sig Dispensed Refills Start Date End Date acetaminophen (TYLENOL) Take 2 tablets (1,000 0 0 08/20/2021 500 mg mg) by mouth 3 times tabletIndications: Left a day displaced femoral neck fracture (HCC), Hyperlipidemia, unspecified hyperlipidemia type aspirin 81 mg enteric Take 1 tablet (81 mg) 30 tablet 0 coated by mouth 1 time per tabletIndications: day Resume home History of aspirin 81 mg daily cardiovascular disorder on 09/12/2021 after completing DVT prophylaxis with Lovenox SC for 28 days post-op acetaminophen-codeine Take 1 tablet by 30 tablet 0 08/20/20 21 #3 (TYLENOL #3) 300-30 mouth Every 8 hours MG tablet as needed for severe pain HYDROmorphone Administer 0.5 mL 0 08/20/2021 (DILAUDID) 0.5 mg/0.5 (0.5 mg) mL SOLN injection intravenously Every 4 solution (conc: 0.5 hours as needed for mg/0.5mL)Indications: breakthrough pain Left displaced femoral neck fracture (HCC), Hyperlipidemia, unspecified hyperlipidemia type oxyCODONE (OXY-IR) 5 mg Take 0.5 tablets (2.5 0 0 08/20/2021 tablet (immediate mg) by mouth every 6 release)Indications: hours as needed for Left displaced femoral moderate pain neck fracture (HCC), Hyperlipidemia, unspecified hyperlipidemia type oxyCODONE (OXY-IR) 5 mg Take 1 tablet (5 mg) 12 tablet 0 08/23/2021 tablet (immediate by mouth every 6 release)Indications: hours as needed for Hyperlipidemia, severe pain for up to unspecified 3 days hyperlipidemia type celecoxib (CELEBREX) Take 1 capsule (400 0 2020 400 mg capsule mg) by mouth 1 time per day budesonide (PULMICORT) Inhale 2 nebule (1 0 08/2008/25/2022 0.5 mg/2 mL inhalation mg) by nebulization 2 solutionIndications: times a day Rinse Chronic bronchitis, mouth with water unspecified chronic after use. bronchitis type (HCC) budesonide-formoterol Inhale 2 puffs orally 0 (SYMBICORT) 160-4.5 2 times a day Shake mcg/puff well before using. inhalerIndications: Rinse mouth after Chronic bronchitis, use. unspecified chronic bronchitis type (HCC) SPIRIVA RESPIMAT 1.25 Inhale 2 puffs (1 0 021 MCG/ACT inhaler dose) EVERY DAY (Asthma)Indications: Chronic bronchitis, unspecified chronic bronchitis type (HCC) PERFOROMIST 20 MCG/2ML GIVE 1 VIAL 0 08/20/2021 inhalation INHALATION TWICE A solutionIndications: DAY Chronic bronchitis, unspecified chronic bronchitis type (HCC) levalbuterol (XOPENEX Inhale 2 puffs by 45 g 0 021 HFA) 45 MCG/ACT INHALATION route inhalerIndications: EVERY 4 HOURS Chronic bronchitis, NEEDED unspecified chronic bronchitis type (HCC) montelukast (SINGULAIR) Take 1 tablet every 0 10 mg day by oral route. tabletIndications: Seasonal allergies enoxaparin (LOVENOX) 40 Inject 40 mg 0 08/21/2021 09/12/2021 mg syringe (100 mg/mL) subcutaneously 1 time subcutaneous injection per day for 22 days solutionIndications: Left displaced femoral neck fracture (HCC), Closed fracture of proximal end of left ulna, unspecified fracture morphology, initial encounter, Hip fracture ([facility]) gabapentin (NEURONTIN) Take 1 capsule (300 0 07/24 300 mg mg) in the morning capsuleIndications: and 2 capsules (600 Other polyneuropathy mg) with dinner topiramate (TOPAMAX) 25 Take 1 tablet (25 mg) 90 tablet 4 0 08/21/2021 08/26/2022 mg tabletIndications: by mouth 1 time a day Obesity (BMI 30.0-34.9) in the morning topiramate (TOPAMAX) 50 Take 1 tablet (50 mg) 90 tablet 4 0 08/20/2021 08/25/2022 mg tabletIndications: by mouth every night Obesity (BMI 30.0-34.9) at bedtime escitalopram (LEXAPRO) Take 1 tablet (10 mg) 0 10 mg by mouth 1 time per tabletIndications: day Depressive disorder traZODone (DESYREL) 50 Take 1 tablet (50 mg) 0 mg tabletIndications: by mouth every night Insomnia, unspecified at bedtime type nalOXone (NARCAN) 0.4 Inject 0.5 mL (0.2 0 2020 MG/ML SOLN injection mg) as directed as solution needed for other (vial)Indications: (Specify) (opioid Opioid-Induced induced respiratory Respiratory Depression depression - PARTIAL reversal) Indications: Significant Decrease in Breathing due to Opioid Drugs nalOXone (NARCAN) 0.4 Inject 1 mL (0.4 mg) 0 07/24 MG/ML SOLN injection as directed as needed solution for other (Specify) (vial)Indications: (opioid induced Opioid-Induced respiratory arrest - Respiratory Arrest FULL reversal) Indications: OPIOID-INDUCED RESPIRATORY ARREST atorvaSTATin (LIPITOR) Take 1 tablet (20 mg) 0 20 mg by mouth 1 time per tabletIndications: day Hyperlipidemia, unspecified hyperlipidemia type letrozole (FEMARA) 2.5 Take 1 tablet (2.5 0 08/20 mg tabletIndications: mg) by mouth 1 time History of breast per day cancer benzonatate (TESSALON) Take 1 capsule (200 42 capsule 0 07/24 200 MG capsule mg) by mouth 3 times a day as needed metoprolol succinate Take 0.5 tablets 0 1 (TOPROL XL) 25 mg SR (12.5 mg) by mouth 1 tablet (24 time per day hr)Indications: Other cardiac arrhythmia guaiFENesin Take 10 mL by mouth 0 08/20/2021 (ROBITUSSIN) 100 MG/5ML every 6 hours as SOLNIndications: Cough needed for cough azelastine (ASTELIN) [place] 2 sprays into 90 mL 0 2020 137 mcg/spray nasal each nostril 1 time sprayIndications: per day Seasonal allergies spironolactone Take 0.5 tablets 0 08/20/2021 (ALDACTONE) 25 mg (12.5 mg) by mouth 1 tabletIndications: time per day Edema, peripheral polyethylene glycol Take 1 packet by 0 08/21/2021 (MIRALAX) 17 g mouth 1 time per day packetIndications: Left Dissolve in 4 to 8 displaced femoral neck ounces of water, fracture (HCC) juice, soda, coffee, tea. senna-docusate sodium Take 1 tablet by 0 08/20/20 21 (SENOKOT-S;PERICOLACE) mouth 2 times a day 8.6-50 MG tabletIndications: Left displaced femoral neck fracture (HCC) melatonin 3 mg Take 2 tablets (6 mg) 30 tablet 0 08/20/2021 tabletIndications: by mouth every night Insomnia, unspecified at bedtime type sumatriptan (IMITREX) Take 1 tablet (100 0 2020 100 mg tablet mg) in the morning and 2 tablets (200 mg) at bedtime SUMAtriptan (IMITREX) 6 INJECT 0.5 ML UNDER 0 MG/0.5ML subcutaneous THE SKIN NEEDED. injection (auto-injector) SUMAtriptan Refill Inject 0.5 mL (6 mg) 0 021 (IMITREX STATDOSE subcutaneously as REFILL) 6 MG/0.5ML SOCT needed injection calcium carbonate 600 Take 1 tablet (600 30 tablet 0 2020 mg tabletIndications: mg) by mouth 1 time Takes dietary per day supplements potassium chloride Take 1 tablet (20 90 tablet 3 08/20/2021 (KLOR-CON M20) 20 MEQ mEq) in the morning CR tabletIndications: and 2 tablets (40 Hypokalemia mEq) in the evening omega-3 fatty acids Take 1 capsule every 100 capsule 0 08/20 (FISH OIL) 1000 mg day by oral route. capsuleIndications: Hyperlipidemia, unspecified hyperlipidemia type levothyroxine 25 mcg Take 1 tablet (25 0 08/20/20 21 tabletIndications: mcg) by mouth 1 time Hypothyroidism per day (acquired) lansoprazole (PREVACID) Take 1 capsule (30 30 capsule 0 07/24 30 mg mg) by mouth 1 time a capsuleIndications: day in the morning Gastroesophageal reflux disease, unspecified whether esophagitis present documented as of this encounter Progress Notes Mini Duran PA - 08/19/2021 3:16 PM CDT ORTHOPAEDIC POST-OPERATIVE PROGRESS NOTE 08/19/2021 5 Days Post-Op Orthopaedic Patient of Dr. CHRISTENSEN Subjective: Gabriela Mckenna is a 66yr female recovering from Procedure(s): FNS of left hip and OPEN REDUCTION INTERNAL FIXATION ELBOW LEFT on 08/13/2021. Pain currently controlled, rates pain 3/10. Denies numbness, tingling. Denies current N/V, CP, SOB. Eating and drinking without difficulty. Objective: Temp Readings from Last 1 Encounters: 08/19/21 98.5 F (36.9 C) BP Readings from Last 1 Encounters: 08/19/21 102/65 Pulse Readings from Last 1 Encounters: 08/19/21 71 PHYSICAL EXAM: General: sitting up in bed; alert and oriented; in no acute distress Left Lower Extremity: Motor Function: intact distally throughout the wrist and hand Skin warm, well-perfused; radial pulse 2+ Splint clean, dry, and intact; no evidence of drainage; no irritation to surrounding tissue Sensation grossly intact Left Lower Extremity: Motor Function: intact distally; strength 5/5 and equal bilaterally with resisted DF/PF Skin warm, well-perfused Tequila's sign negative, no calf pain Dressing: clean, dry, and intact; no evidence of drainage; no irritation to surrounding tissue Lab Results Component Value Date WBC 5.1 08/19/2021 NUCRBC 0 08/14/2021 RBC 3.63 (L) 08/19/2021 HEMOGLOBIN 11.6 08/19/2021 HEMATOCRIT 35.6 08/19/2021 MCV 98.1 (H) 08/19/2021 MCH 32.0 08/19/2021 MCHC 32.6 08/19/2021 PLTCOUNT 168 08/19/2021 NEUTROPCT 77.3 08/14/2021 LYMPHSPCT 11.9 08/14/2021 MONOSPCT 5.4 08/14/2021 EOSPCT 4.6 08/14/2021 BASOPHILPCT 0.4 08/14/2021 Assessment & Plan: 1. s/p Procedure(s): FNS of left hip and OPEN REDUCTION INTERNAL FIXATION ELBOW LEFT: Continue Cares. Internal Medicine primary. Discharge pending continued pain control, as well as IM and therapy's approval. DVT prophylaxis: Lovenox 40 mg daily x 28 days post op Pain control: Continue. Wound care: Leave splint in place to LUE. Hip dressing may remain in place for 6 days orchange as needed for drainage. PT/OT: continue; NWB LUE, WBAT LLE Activity: as tolerated; Disposition/planning: continue cares; Per Ortho, patient clear for discharge to appropriate setting when pain is well controlled and patient is cleared per therapy and medicine. Follow up: 2 weeks with [facility] and [address] Christensen and [facility]. 2. Post-op anemia: resolved; Hgb 11.6 today, up from 10.8 Mini Duran PA-C Vivian Kong MD - 08/19/2021 11:45 AM CDT Images from the original note were not included. DAILY PROGRESS NOTE Gabriela Mckenna is a 66yr old female admitted on 08/13/2021 2:14 PM. Impression / Plan Gabriela Mckenna is a 66 year old woman with history of breast cancer, hypertension, hyperlipidemia, chronic diastolic heart failure, no known CAD, possible sleep apnea, COPD, and SVT s/p ablation (2007) who presented status post mechanical fall found to have left arm radial/ulnar and left femoral neck fracture. Since her preoperative EKG showed ventricular bigeminy, patient was seen by cardiology and cleared for surgery. She is now status post ORIF of the fractures on 08/[address] Christensen. EBL 100mL postoperatively, she was noted to have some delirium with paranoia requiring psychiatry consultation. Briefly was placed on Haldol at bedtime and noted to have QTc prolongation. Delirium has sinceresolved and patient is now at her baseline mental status without needing Haldol. There are no acute concerns at this point and patient has worked with PT/OT who recommended placement. She will be discharged to [facility] bed in [place] tomorrow if remains medically stable. # Mechanical fall on 08/13/21 # Left valgus impacted femoral neck fracture and left olecranon fracture with associated radial neckfracture # Status post left hip ORIF with [employer] FNS and ORIF of left olecranon fracture with plate and screw construct, left radial head replacement, with application of left arm long-arm splint on 08/14/21 Orthopedic surgery following Pain management with ice packs, scheduled Tylenol, and as needed opioid analgesics Bowel regimen while needing narcotics Perioperative antibiotic cefazolin course completed DVT prophylaxis: Lovenox SC 40 mg daily x28 days postop Per ortho, leave splint in place to LUE, hip dressing to remain for 6 days or change as needed for drainage PT/OT; activity as tolerated Bone health referral in place Follow-up with [facility] in [address] Christensen in 6 weeks in the clinic # Acute blood loss anemia, likely postoperative with a component of dilutional factor Preop Hgb 12.3 (08/14). Post op Hgb 10.8 (08/17), as expected. Has improved to 11.6 (08/19) Surgical sites clean without any drainage or bleeding Continue to monitor # COPD, not in exacerbation Continue Incruse Ellipta 1 puff daily, Pulmicort nebs 1 mg twice daily RT per protocol as needed Chest x-ray showed minimal bibasilar atelectasis Encourage incentive spirometry # Postoperative acute hyperactive delirium with paranoid delusions, resolved Following surgery on 08/14, patient became agitated, physically and verbally abusive towards staff, and started pulling on lines. She was given Zyprexa, psychiatry was consulted and later placed on Haldol at bedtime. She was noted to have QTc prolongation. Electrolytes were closely monitored and replaced to keepK >4, Phos >3, Mg >2 Patient has returned to her baseline mentation and is no longer needing Haldol or Zyprexa Continue to monitor, delirium bundle if needed, avoid Ativan # History of AVNRT s/p ablation in 2007 # Ventricular bigeminy/PVCs chronic on metoprolol since 2008 # Chronic diastolic heart failure, no signs of fluid overload Cardiology completed preoperative evaluation Echo on 08/14 showed LVEF 60% with a septal bounce motion and pulmonary artery systolic pressure 57 mmHg. Grade 1 LV diastolic dysfunction She had an episode of AV block 2:1 for about 6 minutes, most likely vasovagal EKG showed frequent PVCs in a bigeminy pattern, monitored on telemetry and was found to have bigeminy intermittently Electrolytes were closely monitored and replaced to keep K >4, Phos >3, Mg >2 At risk for developing pulmonary edema/congestion requiring diuretics. Per cardiology recs, spironolactone is continued Continue Toprol-XL Monitored one more night on tele after transfer to [facility] and found mostly in sinus rhythm in 60s-70s with no events. DC'd telemetry. # Hypophosphatemia Monitor and replace as needed # Acute postoperative urinary retention, resolved Patient has successfully passed trial of void and continues to urinate well # Possible obstructive sleep apnea Recommend evaluation as outpatient with sleep medicine referral # Stable chronic medical conditions History spinal stenosis Seasonal allergies continue Singulair 10 mg daily Migraine continue topiramate 25 mg daily Insomnia currently on melatonin 6 mg at bedtime. Trazodone was held due to somnolence, can be restarted as appropriate Hypertension continue Toprol-XL 12.5 mg daily Hyperlipidemia continue Lipitor 20 mg daily History of breast cancer continue Femara 2.5 mg daily GERD continue lansoprazole 30 mg daily Depressive disorder continue Lexapro 10 mg daily Hypothyroidism continue levothyroxine 25 mcg at bedtime CODE STATUS: Full DVT prophylaxis: Lovenox SC Diet: Heart healthy Disposition plan: Medically stable for discharge to [facility] in [place], likely tomorrow (08/20/2021) at 11 AM. Case management following Interval History Patient was transferred from [facility] to yesterday. Overnight no acute events. Patient is in good spirits and has no major complaints. Has already worked with therapies this morning and tolerated well.She denies any chest pain, palpitations or other symptoms. We monitored her one more night on telemetry and she remained in sinus rhythm with rate in 60s-70s without any events. She reports trying to cough out phelgm this morning and has some difficulties. Agrees to try guaifenesin as needed. Encouraged incentive spirometry. Saturating well on room air. Tolerating a diet, has been having bowel movements, urinating well and has no other concerns. Review of Systems Review of Systems Remainder of 10 point ROS asked/reviewed. Negative except as mentioned in HPI Physical Exam Vital Signs: Temp: 98.5 F (36.9 C) | BP: 102/65 | Pulse: 71 | Resp: 16 | Pain Ratin (out of 10) | Weight: 101 kg (222 lb 9.6 oz) | O2 Device: Room Air O2 Flow Rate (L/min): 2 l/min | SpO2: 94 % Maximum Temperatures (last 24 hours) Temperature Maximum Max Temp 98.9 F (37.2 C) Intake and Output: 08/18 0700 - 08/19 0659 In: 940 [Oral:940] Out: 1000 [Urine:1000] Physical Exam General: No apparent distress. Speaks in full sentences. Obese body habitus HEENT: Normocephalic/Atraumatic. Normal conjunctivae. Pupils equal, round, and reactive to light. Oropharynx clear, moist mucous membranes. Cardiovascular: Normal rate, regular rhythm, audible S1/S2. No pedal edema. Palpable distal pulses. Pulmonary/Chest: Normal respiratory effort, clear breath sounds auscultated in all lung gaytan. No adventitious sounds. Abdominal: Soft. Obese. Non-tender. Non-distended. Bowel sounds present. Musculoskeletal: LUE and LLE, decreased range of motion. Surgical dressing in place, c/d/i. Appropriate post-op tenderness. Distal sensation and motor function intact. Neurological: Alert and oriented to person, place, and time. No focal findings. Dermatologic: Skin is warm and dry. No rash. Psychiatric: Affect, mood, behavior, speech, demeanor, judgement and thought content unremarkable. Labs Labs (Last day) 08/19/21 05 - 08/19/21548 CBC 08/19/21548 CBC WBC 4.0-11.0 (K/uL) 5.1 RBC 3.80-5.30 (M/uL) 3.63 Hemoglobin 11.5-15.8 (g/dL) 11.6 Hematocrit 35.0-45.0 (%) 35.6 MCV 80.0-98.0 (fL) 98.1 MCH 25.5-34.0 (pg) 32.0 MCHC 31.5-36.5 (g/dL) 32.6 RDW-CV 11.5-15.5 (%) 14.1 RDW-SD 35.5-50.0 (fl) 48.1 Platelet Count 140-400 (K/uL) 168 MPV 8.5-12.0 (fL) 10.1 08/19/21 0549 - 08/19/21548 CHEMISTRY 08/19/21 0549 08/19/21548 CHEMISTRY Glucose 70-100 (mg/dL) 104 Sodium 135-145 (meq/L) 141 Potassium 3.5-5.3 (meq/L) 4.1 Chloride 99-110 (meq/L) 119 CO2 20-29 (meq/L) 16 Anion Gap with K 6-20 (meq/L) 10 BUN 6-22 (mg/dL) 8 Creatinine 0.60-1.10 (mg/dL) 0.66 BUN/Creatinine Ratio 10.0-25.0 12.1 Calcium 8.5-10.5 (mg/dL) 7.9 Corrected Calcium 8.5-10.5 (mg/dL) 8.7 Phosphorus 2.5-4.5 (mg/dL) 1.8 Magnesium 1.8-2.4 (mg/dL) 2.1 Albumin 3.5-5.0 (g/dL) 3.0 eGFR >=60 (mL/min/1.73m2) >90 eGFR Non- >=60 (mL/min/1.73m2) 90 08/19/21 0549 - 08/19/21 0549 OTHER 08/19/21 0549 OTHER Age (Years) 66 Medical Decision making MDM Reviewed: previous chart, nursing note and vitals Reviewed previous: x-ray, ECG, labs and CT scan Interpretation: x-ray, ECG, labs and CT scan Consults: orthopedics, psychiatry and cardiology Ashleigh Szymanski PA - 08/18/2021 9:28 AM CDT ORTHOPEDIC POST OPERATIVE PROGRESS NOTE August 18, 2021 POD # 4 Status Post: Procedure(s): FNS of left hip and OPEN REDUCTION INTERNAL FIXATION ELBOW LEFT Patient of Dr. Christensen S: Gabriela Mckenna is a 66yr female recovering from surgery, denies CP, SOB, N/V, Fever or Chills. Does report neuropathy to toes at baseline. No change since surgery. Pt is sitting in bed. No apparent distress. Pain is controlled. PT/OT: Anticipating need for low intensity setting BM noted since surgery. Urinating without difficulty. * O: Temp Readings from Last 1 Encounters: 08/18/21 98.6 F (37 C) BP Readings from Last 1 Encounters: 08/18/21 113/66 Pulse Readings from Last 1 Encounters: 08/18/21 76 Gen: alert and orientated, no apparent distress Incision: Splint in place to LUE. No drainage. Dressing in place to left hip. Scant drainage present. Dressing C/D/I. left HIP: Foot warm, well perfused. Brisk capillary refill noted. Sensation intact to light touch. No calf pain bilaterally. Compartments soft and compressible. DP and PT pulses are palpable. Motor grossly intact, able to PF/DF ankle and wiggle toes. left ARM: Splint in place. Fingers warm, well perfused. Brisk capillary refill noted. Sensationintact to light touch. Swelling noted to dorsum of hand. Able to abduct and adduct all fingers without difficulty. Able to flex and extend the IP of the thumb and the DIP of the index and small fingerswithout difficulty. Compartments soft. Lab Results Component Value Date WBC 5.5 08/17/2021 NUCRBC 0 08/14/2021 RBC 3.38 (L) 08/17/2021 HEMOGLOBIN 10.8 (L) 08/17/2021 HEMATOCRIT 32.7 (L) 08/17/2021 MCV 96.7 08/17/2021 MCH 32.0 08/17/2021 MCHC 33.0 08/17/2021 PLTCOUNT 122 (L) 08/17/2021 NEUTROPCT 77.3 08/14/2021 LYMPHSPCT 11.9 08/14/2021 MONOSPCT 5.4 08/14/2021 EOSPCT 4.6 08/14/2021 BASOPHILPCT 0.4 08/14/2021 Lab Results Component Value Date INR 1.3 (H) 08/13/2021 A/P: 1. Left femoral neck fracture s/p FNS Left radial neck fracture and left proximal ulnar fractrue s/p ORIF L elbow and radial head arthroplasty: DVT prophylaxis: Lovenox 40 mg daily x 28 days post op Pain control: Continue. Wound care: Leave splint in place to LUE. Hip dressing may remain in place for 6 days or change as needed for drainage. PT/OT: continue; NWB LUE, WBAT LLE Activity: as tolerated; Disposition/planning: continue cares; Per Ortho, patient clear for discharge to appropriate settingwhen pain is well controlled and patient is cleared per therapy and medicine. Follow up: 2 weeks with [facility] and [address] Christensen and [facility]. 2. Acute Blood loss Anemia: Expected. Hgb 10.8 yesterday. Ashleigh Howard PA-C Pediatric Orthopedic Surgery Pager #[phone] eMarlene marroquin PA - 08/17/2021 2:33 PM CDT Orthopedic Progress Note Gabriela Mckenna is a 66yr old female admitted on 08/13/2021 2:14 PM. S: stable, pain has been controlled, denies fever chills. Evaluated by therapies, and will need SNF { Lab Results Component Value Date HEMOGLOBIN 10.8 (L) 08/17/2021 O: Vital Signs: Temp: 98.6 F (37 C) | BP: 102/64 | Pulse: 79 | Resp: 18 | Pain Ratin (out of 10) | Weight: 106.1 kg (233 lb 14.4 oz) | O2 Device: NC - no humidity O2 Flow Rate (L/min): 2 l/min | SpO2: 92 % Maximum Temperatures (last 24 hours) Temperature Maximum Max Temp 99.7 F (37.6 C) Exam: alert, oriented Bandages are clean and dry to left hip Splint is in place to LUE. No significant proximal arm swelling. No swelling into the hand, able to wiggle all fingers well. Sensation intact to upper and lower extremities. A: 3 Days Post-Op Status Post: Procedure(s): FNS of left hip and OPEN REDUCTION INTERNAL FIXATION ELBOW LEFT P: WBAT to LLE. NWB to LUE. Plans to transfer to SNF setting early this week. On lovenox for DVT prophylaxis. Marlene Liu PA-C Waldo Contreras DO - 08/17/2021 5:13 AM CDT INTERNAL MEDICINE DAILY PROGRESS NOTE Patient Name: Gabriela Mckenna Admitted: 08/13/2021 Today's Date: 08/17/2021 Assessment and Plan Acute Medical Conditions: # Mechanical fall # Left, transverse radial neck fracture with mild impaction and dorsal angulation s/p ORIF 08/14 # Left, Moderately comminuted and distracted proximal ulnar fracture with dorsal angulation s/p ORIF08/14 # Left, oblique, femoral neck fracture with mild impaction s/p ORIF 08/14 Patient is a 66-year-old female with past medical history significant for hypertension, hyperlipidemia, COPD who presented after a mechanical fall and was found to have multiple left-sided fractures aslisted above. Preoperatively she was noted to have intermittent bigeminy. Cardiology was consultedand echocardiogram performed, cardiology cleared for surgery. Patient underwent orthopedic procedure 08/14 without complication. CXR showed Minimal bibasal atelectasis. Plan: - Orthopedics following, appreciate their recommendations - PRN oxycodone 2.5 and 5 mg, dilaudid 0.5 mg - Scheduled tylenol - PT/OT - CTM - cefazolin course completed # Altered mental status 2/2 to delirium with paranoid delusions vs acute psychosis - resolved # Prolonged QTc # Hypophosphatemia (Phos 1.4) Following orthopedic procedure 08/14, patient became agitated, physically and verbally abusive towards staff, and ripped out her peripheral IV with her teeth. Patient was given a single dose of IM Zyprexa with some improvement and soft right wrist restraint was placed to prevent IV removal. EKG 08/16/21 showed QTC 491 and NSR. Plan: - Psychiatry following, appreciate recommendations - haldol 2mg IV at bedtime, consider stopping tomorrow - d/c Haldol 1mg q6h prn for agitation - monitor MG level as it has close association with development of TDP - IV NS 50 mL/hr - Avoid ativan - Delirium bundle # Intermittent bigeminy # h/o cardiac dysrhythmias Intermittent bigeminy noted on EKG and telemetry. ECHO: EF of 60% with septal bounce. Moderate pulmonary artery hypertension, IVC dilated. EKG showed QTC 491 and NSR. Plan: - d/c Telemetry - continue spirinolactone, Toprol, lipitor # Urinary retention Plan Indwelling desai catheter placed Continue to monitor Bladder scan and straight cath Stable Chronic Medical Conditions: - h/o spinal stenosis - Seasonal allergies, singulair - Migraine, continue topomax - Insomnia, holding trazodone given somnolence - Hypertension, metoprolol - Hyperlipidemia, Lipitor - h/o Breast cancer, continue Femara - GERD, Prevacid - COPD, incruse-ellipta/pulmicort - Depressive disorder, lexapro - Hypothyroidism, levothyroxine CODE STATUS: Full Code Pain medication: Acetaminophen for mild pain, oxycodone for moderate to severe pain, dilaudid for breakthrough pain DVT Prophylaxis: Lovenox for 28 days Therapies: PT/OT Disposition: Pending medical stability Diet: HH Interval History Yesterday PT/OT evaluated and recommend HHPT or Low intensity setting depending on progress. Psychiatry recommend continue bedtime haldol. Bladder scan showed 410 ml. Straight cath for 400 ml. Post void cath was 35 ml. Overnight VSS. CXR showed Minimal bibasal atelectasis. EKG showed QTC 491 and NSR. This morning patient is pleasant and mentation is back to baseline. VSS. Awaiting placement. Summary Gabriela Mckenna, a 66 year old female admitted for left hip fracture. Per chart review, she had an appointment with family medicine for abdominal discomfort. She had an abdominal Ultrasound which revealed multiple nonobstructing stones and cyst on the L kidney. 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 States she did not hit her head and did not have LOC. She did note pain in her leftarm and her left hip after the fall. She then presented to the ED at [facility] where a C-collar was applied by staff. She was taken directly to Radiology for head and cervical CT and x-rays. Upon admission at [facility] she was Alert and Oriented X 4. Imaging at [facility] revealed CT imaging of the head and neck which revealed linear lucencies throughout multiple vertebral bodies. If there is concern for acute cervical neck fracture consider MRI of cervical spine. CT head negative for intracranial bleed. X ray of left hip revealed mildly impacted left femoral neck fracture. She was then transferred to [facility] for further management. On initial evaluation patient lying supine,appeared quite uncomfortable. IV access was established. IV hydromorphone administered for pain control. Orthopedics was consulted.VS notable for Pulse of 37, BP 103/40 and SpO2 91%. Labs were notable for INR 1.3, Cr 1.09 and Alk phos of 119. CT of the LLE without contrast revealed bblique femoral neck fracture with mild impaction as noted. [id number] arthritic changes left SI joint and pubic symphysis. X-ray of LUE showed impacted angulated comminuted fracture of the proximal radius and ulna. CT of LUE without contrast revealed transverse radial neck fracture with mild impaction and mild to moderate apex dorsal angulation. Moderately comminuted and distracted proximal ulnar fracture with intra- articular extension and mild/moderateapex dorsal angulation. Moderate soft tissue swelling at the elbow. Orthopedics recommended operative fixation of the proximal radius and ulna and left femoral neck fracture. Patient was noted to have intermittent bigeminy. Echocardiogram was performed and cardiology consult placed for preoperative clearance. Patient was cleared for surgery by cardiology and underwentORIF of previously stated fractures on 08/14. Postoperatively, patient became very agitated, pulling her peripheral IV out with her teeth. She also became paranoid believing that hospital staff were attempting to kill her. She was given 0.5 mg of ativan without improvement. She did eventually calm down following IM Zyprexa administration. Patientreturned to baseline the following day and labs revealed phosphorus 1.1 which was replaced. CXR showed Minimal bibasal atelectasis. EKG showed QTC [address] of the abdomen and pelvis for follow up on renal cysts and nonobstructive stones on abdominal US 2 weeks with [facility] and [address] Christensen and [facility] Sleep medicine Review of Systems Review of Systems Constitutional: Negative for chills and fever. Eyes: Negative for visual disturbance. Cardiovascular: Negative for chest pain. Respiratory: Negative for shortness of breath. Musculoskeletal: Positive for joint pain. Negative for myalgias. Gastrointestinal: Negative for abdominal pain, change in bowel habit, nausea and vomiting. Genitourinary: Negative for frequency and urgency. Neurological: Negative for dizziness, headaches and weakness. Psychiatric/Behavioral: Negative for altered mental status. Physical Exam Blood pressure 94/45, pulse 73, temperature 99.3 F (37.4 C), resp. rate 16, height 172.7 cm (68"), weight 99.8 kg (220 lb 0.3 oz), SpO2 90 %, not currently . Physical Exam Constitutional: Appearance: Normal appearance. HENT: Head: Normocephalic and atraumatic. Nose: Nose normal. Eyes: Extraocular Movements: Extraocular movements intact. Conjunctiva/sclera: Conjunctivae normal. Cardiovascular: Rate and Rhythm: Regular rhythm. Bradycardia present. Pulses: Normal pulses. Heart sounds: Normal heart sounds. Pulmonary: Effort: Pulmonary effort is normal. Breath sounds: Stridor present. Abdominal: General: Bowel sounds are normal. Palpations: Abdomen is soft. Musculoskeletal: General: tenderness present. Comments: Tenderness with decreased ROM and strength 3+/5 in LLE and LUE likely 2/2 pain. Skin: General: Skin is warm. Capillary Refill: Capillary refill takes less than 2 seconds. Neurological: Mental Status: She is alert and oriented to person, place, and time. Mental status is at baseline. Psychiatric: Mood and Affect: Mood normal. Behavior: Behavior normal. Labs reviewed. All pertinent positives and negatives reflected in the assessment and plan Medical Decision making Reviewed: previous chart, nursing note and vitals Reviewed previous: labs Waldo VALENZUELA resident Pager: [phone] Associated attestation - Alicia Jerome MD - 08/17/2021 10:07 PM CDT I discussed the patient with the resident and personally interviewed and examined the patient. I verified in the medical record all resident documentation/findings, including history, physical exam, and medical decision making, and I agree with the resident's documentation. Alicia Jerome MD Internal Medicine/Hospitalist Junito Hillman PA - 08/16/2021 7:50 AM CDT Orthopedic Daily Progress note: S: 2 Days Post-Op, Procedure(s): FNS of left hip and OPEN REDUCTION INTERNAL FIXATION ELBOW LEFT O: A/O, Pain moderately controlled. dressings C/D/I, Denies CP, SOB, F/C, N/V Positive DF, PF and EHL function, Sensation: intact to light touch in foot Wiggles fingers and thumb. Brisk cap refill. Minimal swelling in fingers Desai in still. No BM. ABD soft. Current Vital Signs Temp: 99.5 F (37.5 C) BP: 134/63 Pulse: 87 O2 Device: Room Air O2 Flow Rate (L/min): 2 l/min Resp: 16 Pain Ratin (does not have trust for pain management at this time ) (out of 10) SpO2: 94 % Pain Ratin (does not have trust for pain management at this time ) Pain Location: Arm;Elbow Specify: Left Pain character: (DIANA) Intake/Output Summary (Last 24 hours) at 08/16/2021 0750 Last data filed at 08/16/2021 0600 Gross per 24 hour Intake 509 ml Output 1000 ml Net -491 ml Lab Results Component Value Date HEMOGLOBIN 14.1 08/14/2021 Lab Results Component Value Date NA 141 08/14/2021 Lab Results Component Value Date INR 1.3 (H) 08/13/2021 PT 15.4 (H) 08/13/2021 Lab Results Component Value Date BUN 13 08/14/2021 Lab Results Component Value Date CREATSERUM 0.87 08/14/2021 Assessment/Plan: 1. 2 Days Post-Op, Procedure(s): 2. FNS of left hip and OPEN REDUCTION INTERNAL FIXATION ELBOW LEFT 3. PT/OT: Out of bed, weight bearing status: WBAT Left lower, NONWB LUE 4. DVT prophylaxis: lovenox 5. Disposition/Planning: CM to follow on Wednesday for possible placement needs vs home (?HH) MIKEY Valdes, PA-C Waldo Contreras DO - 08/16/2021 5:18 AM CDT INTERNAL MEDICINE DAILY PROGRESS NOTE Patient Name: Gabriela Mckenna Admitted: 08/13/2021 Today's Date: 08/16/2021 Assessment and Plan Acute Medical Conditions: # Mechanical fall # Left, transverse radial neck fracture with mild impaction and dorsal angulation s/p ORIF 08/14 # Left, Moderately comminuted and distracted proximal ulnar fracture with dorsal angulation s/p ORIF08/14 # Left, oblique, femoral neck fracture with mild impaction s/p ORIF 08/14 Patient is a 66-year-old female with past medical history significant for hypertension, hyperlipidemia, COPD who presented after a mechanical fall and was found to have multiple left-sided fractures aslisted above. Preoperatively she was noted to have intermittent bigeminy. Cardiology was consultedand echocardiogram performed, cardiology cleared for surgery. Patient underwent orthopedic procedure 08/14 without complication. Plan: - Orthopedic team consulted, appreciate their recommendations - PRN oxycodone 2.5 and 5 mg, dilaudid 0.5 mg - Scheduled tylenol - PT/OT - CTM - CXR to rule out atelectasis # Altered mental status 2/2 to delirium with paranoid delusions vs acute psychosis # Prolonged QTc # Hypophosphatemia (Phos 1.1) Following orthopedic procedure 08/14, patient became agitated, physically and verbally abusive towards staff, and ripped out her peripheral IV with her teeth. Patient was given a single dose of IM Zyprexa with some improvement and soft right wrist restraint was placed to prevent IV removal. Plan: - Psychiatry following, appreciate recommendations - haldol 2mg IV at bedtime - Haldol 1mg q6h prn for agitation - Discontinue seroquel 12.5mg - advise medicine to monitor MG level as it has close association with development of TDP - Security to be used for administration of vital medications including Lovenox and Cefazolin if patient not agreeable - IV NS 50 mL/hr - Avoid ativan - Delirium bundle - Repeat EKG when patient agreeable - Kphos 30mmol 1 time - Recheck K in the am # Intermittent bigeminy # h/o cardiac dysrhythmias Intermittent bigeminy noted on EKG and telemetry. ECHO: EF of 60% with septal bounce. Moderate pulmonary artery hypertension, IVC dilated. Plan: - Telemetry - ekg pending - continue spirinolactone, Toprol, lipitor # Urinary retention Plan Indwelling desai catheter placed Continue to monitor Stable Chronic Medical Conditions: - h/o spinal stenosis - Seasonal allergies, singulair - Migraine, continue topomax - Insomnia, holding trazodone given somnolence - Hypertension, metoprolol - Hyperlipidemia, Lipitor - h/o Breast cancer, continue Femara - GERD, Prevacid - COPD, incruse-ellipta/pulmicort - Depressive disorder, lexapro - Hypothyroidism, levothyroxine CODE STATUS: Full Code Pain medication: Acetaminophen for mild pain, oxycodone for moderate to severe pain, dilaudid for breakthrough pain DVT Prophylaxis: Lovenox for 28 days Therapies: PT/OT Disposition: Pending medical stability Diet: HH Interval History Yesterday evening, patient attempted to bite staff while restrained and hit staff and continued to yell at . Restraints were removed as she was semi- cooperative by then declined and continued torefuse vitals. Psychiatry evaluated yesterday and started haldol 2mg IV at bedtime and Haldol 1mg q6h prn for agitation. They discontinued seroquel 12.5mg and advised to monitor MG level as it has close association with development of TDP. She had a temperature of 100.8 overnight but otherwise VSS. This morning she was pleasant and cooperative. She denied any new complaints or concerns. Summary Gabriela Mckenna, a 66 year old female admitted for left hip fracture. Per chart review, she had an appointment with family medicine for abdominal discomfort. She had an abdominal Ultrasound which revealed multiple nonobstructing stones and cyst on the L kidney. 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 States she did not hit her head and did not have LOC. She did note pain in her leftarm and her left hip after the fall. She then presented to the ED at [facility] where a C-collar was applied by staff. She was taken directly to Radiology for head and cervical CT and x-rays. Upon admission at [facility] she was Alert and Oriented X 4. Imaging at [facility] revealed CT imaging of the head and neck which revealed linear lucencies throughout multiple vertebral bodies. If there is concern for acute cervical neck fracture consider MRI of cervical spine. CT head negative for intracranial bleed. X ray of left hip revealed mildly impacted left femoral neck fracture. She was then transferred to [facility] for further management. On initial evaluation patient lying supine,appeared quite uncomfortable. IV access was established. IV hydromorphone administered for pain control. Orthopedics was consulted.VS notable for Pulse of 37, BP 103/40 and SpO2 91%. Labs were notable for INR 1.3, Cr 1.09 and Alk phos of 119. CT of the LLE without contrast revealed bblique femoral neck fracture with mild impaction as noted. [id number]-[id number] arthritic changes left SI joint and pubic symphysis. X-ray of LUE showed impacted angulated comminuted fracture of the proximal radius and ulna. CT of LUE without contrast revealed transverse radial neck fracture with mild impaction and mild to moderate apex dorsal angulation. Moderately comminuted and distracted proximal ulnar fracture with intra- articular extension and mild/moderateapex dorsal angulation. Moderate soft tissue swelling at the elbow. Orthopedics recommended operative fixation of the proximal radius and ulna and left femoral neck fracture. Patient was noted to have intermittent bigeminy. Echocardiogram was performed and cardiology consult placed for preoperative clearance. Patient was cleared for surgery by cardiology and underwentORIF of previously stated fractures on 08/14. Postoperatively, patient became very agitated, pulling her peripheral IV out with her teeth. She also became paranoid believing that hospital staff were attempting to kill her. She was given 0.5 mg of ativan without improvement. She did eventually calm down following IM Zyprexa administration. Discharge Planning CT of the abdomen and pelvis for follow up on renal cysts and nonobstructive stones on abdominal US 2 weeks with [facility] and [address] Christensen and [facility] Sleep medicine Review of Systems Review of Systems Constitutional: Negative for chills and fever. Eyes: Negative for visual disturbance. Cardiovascular: Negative for chest pain. Respiratory: Negative for shortness of breath. Musculoskeletal: Positive for joint pain. Negative for myalgias. Gastrointestinal: Negative for abdominal pain, change in bowel habit, nausea and vomiting. Genitourinary: Negative for frequency and urgency. Neurological: Negative for dizziness, headaches and weakness. Psychiatric/Behavioral: Negative for altered mental status. Physical Exam Blood pressure 111/64, pulse 98, temperature 99.3 F (37.4 C), resp. rate 18, height 172.7 cm (68"), SpO2 94 %, not currently . Physical Exam Constitutional: Appearance: Normal appearance. HENT: Head: Normocephalic and atraumatic. Nose: Nose normal. Eyes: Extraocular Movements: Extraocular movements intact. Conjunctiva/sclera: Conjunctivae normal. Cardiovascular: Rate and Rhythm: Regular rhythm. Bradycardia present. Pulses: Normal pulses. Heart sounds: Normal heart sounds. Pulmonary: Effort: Pulmonary effort is normal. Breath sounds: Stridor present. Abdominal: General: Bowel sounds are normal. Palpations: Abdomen is soft. Musculoskeletal: General: tenderness present. Comments: Decreased ROM and strength 3+/5 in LLE and LUE likely 2/2 pain. Skin: General: Skin is warm. Capillary Refill: Capillary refill takes less than 2 seconds. Neurological: Mental Status: She is alert and oriented to person, place, and time. Mental status is at baseline. Psychiatric: Mood and Affect: Mood normal. Behavior: Behavior normal. Labs reviewed. All pertinent positives and negatives reflected in the assessment and plan Medical Decision making Reviewed: previous chart, nursing note and vitals Reviewed previous: labs Waldo VALENZUELA resident Pager: [phone] Associated attestation - Alicia Jerome MD - 08/17/2021 8:08 AM CDT I discussed the patient with the resident and personally interviewed and examined the patient. I verified in the medical record all resident documentation/findings, including history, physical exam, and medical decision making, and I agree with the resident's documentation. Alicia Jerome MD Internal Medicine/Hospitalist Jorge Morris MD - 08/15/2021 2:27 PM CDT INTERNAL MEDICINE DAILY PROGRESS NOTE Patient Name: Gabriela Mckenna Admitted: 08/13/2021 Today's Date: 08/15/2021 Assessment and Plan Acute Medical Conditions: # Mechanical fall # Left, transverse radial neck fracture with mild impaction and dorsal angulation s/p ORIF 08/14 # Left, Moderately comminuted and distracted proximal ulnar fracture with dorsal angulation s/p ORIF08/14 # Left, oblique, femoral neck fracture with mild impaction s/p ORIF 08/14 Patient is a 66-year-old female with past medical history significant for hypertension, hyperlipidemia, COPD who presented after a mechanical fall and was found to have multiple left-sided fractures aslisted above. Preoperatively she was noted to have intermittent bigeminy. Cardiology was consultedand echocardiogram performed, cardiology cleared for surgery. Patient underwent orthopedic procedure 08/14 without complication. Plan: - Orthopedic team consulted, appreciate their recommendations - PRN oxycodone 2.5 and 5 mg, dilaudid 0.5 mg - Scheduled tylenol - PT/OT - CTM # Altered mental status 2/2 to delirium with paranoid delusions vs acute psychosis # Prolonged QTc Following orthopedic procedure 08/14, patient became agitated, physically and verbally abusive towards staff, and ripped out her peripheral IV with her teeth. Patient was given a single dose of IM Zyprexa with some improvement and soft right wrist restraint was placed to prevent IV removal. This morning patient continues to be agitated and continues to have paranoid delusions; believes hospital staff as well as her are attempting to kill her. Patient is refusing medications and physical exam. Patient not agreeable to any medications including acutely necessary medications including Lovenox and cefazolin in the setting of recent orthopedic procedure. Plan: - Psychiatry consulted, appreciate recommendations - Security to be used for administration of vital medications including Lovenox and Cefazolin if patient not agreeable - IV NS 50 mL/hr - Avoid ativan - Delirium bundle - Repeat EKG when patient agreeable # Intermittent bigeminy # h/o cardiac dysrhythmias Intermittent bigeminy noted on EKG and telemetry. ECHO: EF of 60% with septal bounce. Moderate pulmonary artery hypertension, IVC dilated. Plan: - Telemetry # Urinary retention Plan Indwelling desai catheter placed Continue to monitor Stable Chronic Medical Conditions: - h/o spinal stenosis - Seasonal allergies, singulair - Migraine, continue topomax - Insomnia, holding trazodone given somnolence - Hypertension, metoprolol - Hyperlipidemia, Lipitor - h/o Breast cancer, continue Femara - GERD, Prevacid - COPD, incruse-ellipta/pulmicort - Depressive disorder, lexapro - Hypothyroidism, levothyroxine CODE STATUS: Full Code Pain medication: Acetaminophen for mild pain, oxycodone for moderate to severe pain, dilaudid for breakthrough pain DVT Prophylaxis: sq heparing Therapies: PT/OT pending surgical correction Disposition: Pending medical stability Diet: NPO for ortho surgery today Interval History This morning patient continues to be agitated and aggressive with staff. Continues to voice paranoidthoughts that hospital staff as well as her are trying to kill her. Physical exam and reviewof systems unable to be completed due to patients mental status. Patient also resisting medication ad ministration and lab draws. Summary Gabriela Mckenna, a 66 year old female admitted for left hip fracture. Per chart review, she had an appointment with family medicine for abdominal discomfort. She had an abdominal Ultrasound which revealed multiple nonobstructing stones and cyst on the L kidney. 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 States she did not hit her head and did not have LOC. She did note pain in her leftarm and her left hip after the fall. She then presented to the ED at [facility] where a C-collar was applied by staff. She was taken directly to Radiology for head and cervical CT and x-rays. Upon admission at [facility] she was Alert and Oriented X 4. Imaging at [facility] revealed CT imaging of the head and neck which revealed linear lucencies throughout multiple vertebral bodies. If there is concern for acute cervical neck fracture consider MRI of cervical spine. CT head negative for intracranial bleed. X ray of left hip revealed mildly impacted left femoral neck fracture. She was then transferred to [facility] for further management. On initial evaluation patient lying supine,appeared quite uncomfortable. IV access was established. IV hydromorphone administered for pain control. Orthopedics was consulted.VS notable for Pulse of 37, BP 103/40 and SpO2 91%. Labs were notable for INR 1.3, Cr 1.09 and Alk phos of 119. CT of the LLE without contrast revealed bblique femoral neck fracture with mild impaction as noted. [id number] arthritic changes left SI joint and pubic symphysis. X-ray of LUE showed impacted angulated comminuted fracture of the proximal radius and ulna. CT of LUE without contrast revealed transverse radial neck fracture with mild impaction and mild to moderate apex dorsal angulation. Moderately comminuted and distracted proximal ulnar fracture with intra- articular extension and mild/moderateapex dorsal angulation. Moderate soft tissue swelling at the elbow. Orthopedics recommended operative fixation of the proximal radius and ulna and left femoral neck fracture. Patient was noted to have intermittent bigeminy. Echocardiogram was performed and cardiology consult placed for preoperative clearance. Patient was cleared for surgery by cardiology and underwentORIF of previously stated fractures on 08/14. Postoperatively, patient became very agitated, pulling her peripheral IV out with her teeth. She also became paranoid believing that hospital staff were attempting to kill her. She was given 0.5 mg of ativan without improvement. She did eventually calm down following IM Zyprexa administration. Discharge Planning CT of the abdomen and pelvis for follow up on renal cysts and nonobstructive stones on abdominal US Review of Systems Review of Systems Unable to perform ROS: mental status change Physical Exam Blood pressure 111/64, pulse 98, temperature 99.3 F (37.4 C), resp. rate 18, height 172.7 cm (68"), SpO2 94 %, not currently . Physical exam unable to be performed due to agitation and patient refusal. Labs reviewed. All pertinent positives and negatives reflected in the assessment and plan Medical Decision making Reviewed: previous chart, nursing note and vitals Reviewed previous: labs Jorge Morris MD PGY-2 Internal Medicine Pager: [phone] Associated attestation - Alicia Jerome MD - 08/17/2021 8:07 AM CDT I discussed the patient with the resident and personally interviewed and examined the patient. I verified in the medical record all resident documentation/findings, including history, physical exam, and medical decision making, and I agree with the resident's documentation. Discussed with family the risks of self harm and post-operative complications concerning pt's acute delirium and lack of willingness for medical care. Pt's agreed to use physical hold and/or soft restraints for safety of pt and staff as well as being able to provide needed medical attention. Alicia Jerome MD Internal Medicine/Hospitalist Loly Costello, SURVEY WORKER-PROCESS MOLD TECHNICIAN - 08/15/2021 8:29 AM CDT ORTHOPEDIC POST OPERATIVE PROGRESS NOTE August 15, 2021 1 Day Post-Op Status Post: Procedure(s): FNS of left hip and OPEN REDUCTION INTERNAL FIXATION ELBOW LEFT Patient of Dr. Christensen S: Gabriela Mckenna is a 66yr female recovering from surgery, per chart review has been uncooperative overnight and verbally and physically threatening staff. This AM, she refuses to answer any questions and will not follow any commands. PT/OT: Orders in place, awaiting post-op evaluation Pain: Does not answer questions related to pain No BM noted since surgery per chart review. O: Temp Readings from Last 1 Encounters: 08/14/21 97.3 F (36.3 C) BP Readings from Last 1 Encounters: 08/14/21 103/73 Pulse Readings from Last 1 Encounters: 08/15/21 90 Gen: Sitting up in bed, does not participate in conversation, alert and agitated, no apparent distress Incision: no drainage. Dressings clean, dry, and intact. left HIP: Warm, well perfused. Brisk capillary refill noted. Compartments soft and compressible. DP and PT pulses are palpable. Unable to assess motor/sensation due to patient's cooperativeness. Moves foot and leg spontaneously throughout exam. left ELBOW: Long arm posterior splint in place. Sling in place. Warm, well perfused. Brisk capillary refill noted. Compartments soft. Moves fingers spontaneously throughout exam. Lab Results Component Value Date WBC 8.6 08/14/2021 NUCRBC 0 08/14/2021 RBC 4.57 08/14/2021 HEMOGLOBIN 14.1 08/14/2021 HEMATOCRIT 44.9 08/14/2021 MCV 98.2 (H) 08/14/2021 MCH 30.9 08/14/2021 MCHC 31.4 (L) 08/14/2021 PLTCOUNT 139 (L) 08/14/2021 NEUTROPCT 77.3 08/14/2021 LYMPHSPCT 11.9 08/14/2021 MONOSPCT 5.4 08/14/2021 EOSPCT 4.6 08/14/2021 BASOPHILPCT 0.4 08/14/2021 Lab Results Component Value Date INR 1.3 (H) 08/13/2021 A/P: 1. s/p FNS of left hip and OPEN REDUCTION INTERNAL FIXATION ELBOW LEFT: DVT prophylaxis: Lovenox x28 days total post-operatively Pain control: Continue current regimen Wound care: Left hip- keep surgical dressing in place for 48-72 hours total post-operatively; Keep splint clean, dry, and intact PT/OT: continue; Activity: as tolerated; WBAT to LLE okay for jarred walker, NWB to LUE with sling Disposition/planning: continue cares; Follow up: 2 weeks with [facility] and [address] Christensen and [facility] Loly Costello APRN, ATTENDANT [employer] Orthopedic Surgery Waldo Mcdermott DO - 08/14/2021 5:18 AM CDT INTERNAL MEDICINE DAILY PROGRESS NOTE Patient Name: Gabriela Mckenna Admitted: 08/13/2021 Today's Date: 08/14/2021 Assessment and Plan Acute Medical Conditions: # Mechanical fall # Left, transverse radial neck fracture with mild impaction and dorsal angulation # Left, Moderately comminuted and distracted proximal ulnar fracture with dorsal angulation # Left, oblique, femoral neck fracture with mild impaction Preoperative Evaluation Mets Score: >4 Patient reports good functional capacity. RCRI: 0/Class 1 (3.9% risk of major cardiac event) Cardiac: Patient denies any recent symptoms of ACS. Prior EKG: Sinus rhythm with frequent Premature ventricular complexes in a pattern of bigeminy Prior ECHO: EF of 60% with septal bounce. Moderate pulmonary artery hypertension, IVC dilated. Respiratory: Patient denies recent URI, or sputum production Patient is low risk. Patient has been optimized for surgical intervention with anesthesia. No additional testing needed prior to procedure. Final clearance to be determined by anesthesia on day of procedure. Plan: - Orthopedic team consulted, appreciate their recommendations, plan for surgery today - Cardiology consult to clear for surgery - IV NS for volume support and hydration - Pain regimen and PRN BM regimen in place - Completing pre-operative assessment - PT/OT pending surgical correction - Repeat labs in AM - CTM # Intermittent bigeminy # h/o cardiac dysrhythmias EKG: Sinus rhythm with frequent Premature ventricular complexes in a pattern of bigeminy ECHO: EF of 60% with septal bounce. Moderate pulmonary artery hypertension, IVC dilated. Plan: - Cardiology consult, appreciate recs continue to monitor - Telemetry # Urinary retention Plan Indwelling desai catheter placed Continue to monitor Stable Chronic Medical Conditions: - h/o spinal stenosis - Seasonal allergies, singulair - Migraine, continue topomax - Insomnia, holding trazodone given somnolence - Hypertension, metoprolol - Hyperlipidemia, Lipitor - h/o Breast cancer, continue Femara - GERD, Prevacid - COPD, incruse-ellipta/pulmicort - Depressive disorder, lexapro - Hypothyroidism, levothyroxine CODE STATUS: Full Code Pain medication: Acetaminophen for mild pain, oxycodone for moderate to severe pain, dilaudid for breakthrough pain DVT Prophylaxis: sq heparing Therapies: PT/OT pending surgical correction Disposition: Pending medical stability Diet: NPO for ortho surgery today Interval History Overnight rapid response was called due to Bradycardia while trying to get shifted to the [facility]. 12lead EKG showed ventricular bigeminy and patient was asymptomatic. Telemetry started. She continued to have left arm and hip pain overnight upto 9/10 in severity for which she received dilaudid and oxycodone. VS overnight concerning for low HR with 36 being the lowest. This morning the patient notes significant pain in her LUE and LLE. Otherwise no acute changes. She was using the budesonide inhaler this morning and admits to shortness of breath which is baseline dueto her history of asthma. Summary Gabriela Mckenna, a 66 year old female admitted for left hip fracture. Per chart review, she had an appointment with family medicine for abdominal discomfort. She had an abdominal Ultrasound which revealed multiple nonobstructing stones and cyst on the L kidney. 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 States she did not hit her head and did not have LOC. She did note pain in her leftarm and her left hip after the fall. She then presented to the ED at [facility] where a C-collar was applied by staff. She was taken directly to Radiology for head and cervical CT and x-rays. Upon admission at [facility] she was Alert and Oriented X 4. Imaging at [facility] revealed CT imaging of the head and neck which revealed linear lucencies throughout multiple vertebral bodies. If there is concern for acute cervical neck fracture consider MRI of cervical spine. CT head negative for intracranial bleed. X ray of left hip revealed mildly impacted left femoral neck fracture. She was then transferred to [facility] for further management. On initial evaluation patient lying supine,appeared quite uncomfortable. IV access was established. IV hydromorphone administered for pain control. Orthopedics was consulted.VS notable for Pulse of 37, BP 103/40 and SpO2 91%. Labs were notable for INR 1.3, Cr 1.09 and Alk phos of 119. CT of the LLE without contrast revealed bblique femoral neck fracture with mild impaction as noted. [id number]-wd-yhzpiygn arthritic changes left SI joint and pubic symphysis. X-ray of LUE showed impacted angulated comminuted fracture of the proximal radius and ulna. CT of LUE without contrast revealed transverse radial neck fracture with mild impaction and mild to moderate apex dorsal angulation. Moderately comminuted and distracted proximal ulnar fracture with intra- articular extension and mild/moderateapex dorsal angulation. Moderate soft tissue swelling at the elbow. Orthopedics recommended N.p.o. at midnight for potential operative fixation of the proximal radius and ulna and/or left femoral neck fracture. Long arm splint placed to left upper extremity for comfort. Pateint continued to be in bigeminy on repeat EKG and ECHO showed EF of 60% with septal bounce. Moderate pulmonary artery hypertension, IVC dilated. Cardiology consult placed for cleareance for surgery. Discharge Planning CT of the abdomen and pelvis for follow up on renal cysts and nonobstructive stones on abdominal US Review of Systems Review of Systems Constitutional: Negative for chills and fever. HENT: Negative for congestion and ear pain. Eyes: Negative for visual disturbance. Cardiovascular: Negative for chest pain. Respiratory: Positive for cough, shortness of breath and wheezing. Musculoskeletal: Positive for joint pain and joint swelling. Negative for myalgias. Gastrointestinal: Negative for abdominal pain, change in bowel habit, nausea and vomiting. Genitourinary: Negative for frequency and urgency. Neurological: Negative for dizziness, headaches, numbness, sensory change and weakness. Psychiatric/Behavioral: The patient is not nervous/anxious. Physical Exam Blood pressure 115/75, pulse 55, temperature 98.2 F (36.8 C), resp. rate 18, height 172.7 cm (68"), SpO2 96 %, not currently . Physical Exam Constitutional: Appearance: Normal appearance. HENT: Head: Normocephalic and atraumatic. Nose: Nose normal. Eyes: Extraocular Movements: Extraocular movements intact. Conjunctiva/sclera: Conjunctivae normal. Cardiovascular: Rate and Rhythm: Regular rhythm. Bradycardia present. Pulses: Normal pulses. Heart sounds: Normal heart sounds. Pulmonary: Effort: Pulmonary effort is normal. Breath sounds: Wheezing present. Abdominal: General: Bowel sounds are normal. Palpations: Abdomen is soft. Musculoskeletal: General: Swelling, tenderness and signs of injury present. Comments: LLE in externally rotated and tender to palpation. Strength is 3+/5 on LLE. LUP in a splint and tender with motion. Skin: General: Skin is warm. Capillary Refill: Capillary refill takes less than 2 seconds. Neurological: Mental Status: She is alert and oriented to person, place, and time. Mental status is at baseline. Psychiatric: Mood and Affect: Mood normal. Behavior: Behavior normal. Labs reviewed. All pertinent positives and negatives reflected in the assessment and plan Medical Decision making Reviewed: previous chart, nursing note and vitals Reviewed previous: labs DO BIANCA Cruz Resident Pager #[phone] [facility], [place] Associated attestation - Alicia Jerome MD - 08/15/2021 9:27 AM CDT I discussed the patient with the resident and personally interviewed and examined the patient. I verified in the medical record all resident documentation/findings, including history, physical exam, and medical decision making, and I agree with the resident's documentation. Alicia Jerome MD Internal Medicine/Hospitalist documented in this encounter H&P Notes Alicia Jerome MD - 08/13/2021 11:43 PM CDT Images from the original note were not included. ADMISSION HISTORY AND PHYSICAL NOTE Patient ID: Gabriela Mckenna is a 66yr female. PCP: Chhaya Krishnamurthy APRN-PROCESS MOLD TECHNICIAN Attending Provider: Alicia Jerome MD BARB: [phone] Impression / Plan Active Problems: Gastroesophageal reflux disease Chronic obstructive lung disease (HCC) Depressive disorder Hyperlipidemia Hypertensive disorder Insomnia Migraine Seasonal allergies Wrist fracture Hip fracture (HCC) Acute Medical Conditions: # Mechanical fall # Left, transverse radial neck fracture with mild impaction and dorsal angulation # Left, Moderately comminuted and distracted proximal ulnar fracture with dorsal angulation # Left, oblique, femoral neck fracture with mild impaction Plan: - Orthopedic team consulted, appreciate their recommendations - IV NS for volume support and hydration - Pain regimen and PRN BM regimen in place - Completing pre-operative assessment - PT/OT pending surgical correction - Repeat labs in AM - CTM # Intermittent bigeminy # h/o cardiac dysrhythmias Plan: - ECG ordered - Echocardiogram ordered, noting recent h/o breast cancer S/P treatment - CTM Stable Chronic Medical Conditions: - h/o spinal stenosis - Seasonal allergies, singulair - Migraine, continue topomax - Insomnia, holding trazodone given somnolence - Hypertension, metoprolol - Hyperlipidemia, Lipitor - h/o Breast cancer, continue Femara - GERD, Prevacid - COPD, incruse-ellipta/pulmicort - Depressive disorder, lexapro - Hypothyroidism, levothyroxine CODE STATUS: Full Code Pain medication: Acetaminophen for mild pain, oxycodone for moderate to severe pain, dilaudid for breakthrough pain DVT Prophylaxis: sq heparin Therapies: PT/OT pending surgical correction Disposition: Pending medical stability Diet: Regular diet Chief Complaint / HPI HPI Gabriela Mckenna is a 66yr old female who presents with a left wrist and hip fracture following a mechanical fall. She has a past medical history notable for HTN, HLD, GERD, COPD, depressive disorder, hypothyroidism, breast cancer S/P chemo/resection and an unspecified cardiac arrhythmia. Pt reports that while walking around her 's pick-up she hit the ball hitch with her leg and fell, landing on her left side. She developed severe pain immediately and was unable to get up by herself. Her and a bystander helped her up and she was taken to a nearby ER for evaluation. At the outside ER, she completed a lab and imaging work up demonstrating fracturing of her left wrist and hip, details noted above. Her labs were fairly unremarkable aside from an elevated creatine (midly) and alk phos elevation. Given need for surgical intervention, she was transferred [facility] for a higher level of care. Medications Prior to Admission Medications Prescriptions Last Dose Informant Patient Reported? Taking? PERFOROMIST 20 MCG/2ML inhalation solution at Not started yet Self Yes No Sig: GIVE 1 VIAL INHALATION TWICE A DAY SPIRIVA RESPIMAT 1.25 MCG/ACT inhaler (Asthma) Past Week at Unknown time Self Yes Yes Sig: Inhale 2 puffs (1 dose) EVERY DAY SUMAtriptan (IMITREX) 6 MG/0.5ML subcutaneous injection (auto-injector) Greater than 1 Month at Unknown time Self Yes Yes Sig: INJECT 0.5 ML UNDER THE SKIN NEEDED. SUMAtriptan Refill (IMITREX STATDOSE REFILL) 6 MG/0.5ML SOLN injection Self Yes No Sig: Inject 6 mg subcutaneously as needed. acetaminophen-codeine #3 (TYLENOL #3) 300-30 MG tablet Past Month at Unknown time Self Yes Yes Sig: Take 1 tablet by mouth Every 8 hours as needed for severe pain aspirin 81 mg enteric coated tablet 08/13/2021 at am Self Yes Yes Sig: Take 81 mg by mouth 1 time per day atorvaSTATin (LIPITOR) 20 mg tablet 08/13/2021 at am Self Yes Yes Sig: TAKE 1 TABLET BY MOUTH EVERY DAY. azelastine (ASTELIN) 137 mcg/spray nasal spray 08/13/2021 at am Self Yes Yes Sig: [place] 2 sprays into each nostril 1 time per day benzonatate (TESSALON) 200 MG capsule 08/12/2021 at Unknown time Self Yes Yes Sig: Take 200 mg by mouth 3 times a day as needed budesonide (PULMICORT) 0.5 mg/2 mL inhalation solution 08/13/2021 at am Self Yes Yes Sig: INHALE 2 vials BY MOUTH TWICE DAILY. budesonide (PULMICORT) 1 MG/2ML inhalation solution Self Yes No Sig: Nebulize one unit-dose for inhalation TWICE DAILY budesonide-formoterol (SYMBICORT) 160-4.5 mcg/puff inhaler 08/13/2021 at am Self Yes Yes Sig: Inhale 2 puffs orally 2 times a day Shake well before using. Rinse mouth after use. calcium carbonate 600 mg tablet 08/13/2021 at am Self Yes Yes Sig: Take 600 mg by mouth 1 time per day celecoxib (CELEBREX) 400 mg capsule 08/13/2021 at am Self Yes Yes Sig: TAKE ONE CAPSULE BY MOUTH EVERY DAY escitalopram (LEXAPRO) 10 mg tablet 08/13/2021 at am Self Yes Yes Sig: Take 10 mg by mouth 1 time per day gabapentin (NEURONTIN) 300 mg capsule 08/13/2021 at am Self Yes Yes Sig: Take 1 capsule (300 mg) in the morning and 2 capsules (600 mg) with dinner indomethacin (INDOCIN) 25 mg capsule Not Taking at Unknown time No No Sig: Take 1 capsule (25 mg) by mouth 3 times a day with meals for 14 days Patient not taking: Reported on 08/13/2021 lansoprazole (PREVACID) 30 mg capsule 08/13/2021 at am Self Yes Yes Sig: Take 30 mg by mouth 1 time a day in the morning. letrozole (FEMARA) 2.5 mg tablet 08/13/2021 at am Self Yes Yes Sig: Take 2.5 mg by mouth 1 time per day levalbuterol (XOPENEX HFA) 45 MCG/ACT inhaler Past Month at Unknown time Self Yes Yes Sig: Inhale 2 puffs by INHALATION route EVERY 4 HOURS NEEDED levothyroxine 25 mcg tablet 08/12/2021 at pm Self Yes Yes Sig: Take 25 mcg by mouth 1 time per day metoprolol succinate (TOPROL XL) 25 mg SR tablet (24 hr) 08/13/2021 at am Self Yes Yes Sig: Take 12.5 mg by mouth 1 time per day montelukast (SINGULAIR) 10 mg tablet 08/13/2021 at am Self Yes Yes Sig: Take 1 tablet every day by oral route. omega-3 fatty acids (FISH OIL) 1000 mg capsule 08/13/2021 at am Self Yes Yes Sig: Take 1 capsule every day by oral route. potassium chloride (KLOR-CON M20) 20 MEQ CR tablet 08/12/2021 at pm Self Yes Yes Sig: Take 1 tablet (20 mEq) in the morning and 2 tablets (40 mEq) in the evening spironolactone (ALDACTONE) 25 mg tablet 08/13/2021 at am Self Yes Yes Sig: Take 12.5 mg by mouth 1 time per day sumatriptan (IMITREX) 100 mg tablet 08/13/2021 at am Self Yes Yes Sig: Take 1 tablet (100 mg) in the morning and 2 tablets (200 mg) at bedtime topiramate (TOPAMAX) 25 mg tablet 08/13/2021 at am Self Yes Yes Sig: TAKE 1 TABLET BY MOUTH IN THE MORNING AND 2 TABLETS AT BEDTIME traZODone (DESYREL) 50 mg tablet 08/12/2021 at pm Self Yes Yes Sig: Take 50 mg by mouth every night at bedtime Facility-Administered Medications: None Allergies Allergies Allergen Reactions Adhesives Rash Prilosec [Omeprazole] Nausea Medical / Surgical / Family History Past Medical History: Diagnosis Date Anemia History of Breast cancer (HCC) Hyperlipidemia Irregular heartbeat Reflux Past Surgical History: Procedure Laterality Date BREAST RECONSTRUCTION 1996 1978; [address] Rivera COLONOSCOPY 04/10/15 very minimal colitis, mildly inflamed internal hemorrhoids; Dr. Rivera COLONOSCOPY N/A 05/06/2021 Dr. Chidi Mcwilliams - see scanned report D & C ~1975 HYSTERECTOMY MASTECTOMY BILATERAL 1996 Dr. Goodwin Family History Problem Relation Age of Onset Breast Cancer Mother 54 Heart Attack Father age 82 of [place] Heart Disease Father Not otherwise listed - Cancer Sister ? colon cancer Not otherwise listed - Cancer Sister Skin cancers Breast Cancer Sister dx in her late 40's; recurrence at 63 Negative Son Negative Son Breast Cancer Maternal Aunt unknown age of onset Not otherwise listed - Cancer Paternal Grandmother Leukemia Social History Social History Tobacco Use Smoking status: Never Smoker Smokeless tobacco: Never Used Substance Use Topics Alcohol use: No Alcohol/week: 0.0 standard drinks Drug use: No ROS Review of Systems Constitutional: Positive for activity change and fatigue. HENT: Negative. Respiratory: Negative. Cardiovascular: Negative. Negative for chest pain and palpitations. Gastrointestinal: Negative. Musculoskeletal: Positive for gait problem. Limited ROM and pain on left wrist and hip Skin: Negative. Hematological: Negative. Psychiatric/Behavioral: Negative. Physical Exam BP 115/75 | Pulse 72 | Temp 98.2 F (36.8 C) | Resp 18 | SpO2 96% Physical Exam HENT: Head: Normocephalic and atraumatic. Eyes: Conjunctiva/sclera: Conjunctivae normal. Pupils: Pupils are equal, round, and reactive to light. Cardiovascular: Rate and Rhythm: Normal rate. Pulmonary: Effort: Pulmonary effort is normal. Breath sounds: Normal breath sounds. Abdominal: General: Bowel sounds are normal. Palpations: Abdomen is soft. Musculoskeletal: General: Tenderness and signs of injury present. Normal range of motion. Cervical back: Normal range of motion and neck supple. Comments: See HPI Skin: General: Skin is warm. Coloration: Skin is not pale. Findings: No bruising. Neurological: Mental Status: She is alert. Mental status is at baseline. Psychiatric: Mood and Affect: Mood normal. Behavior: Behavior normal. Labs Labs (Last day) 08/16/21741 - 08/16/21 07 CBC 08/16/21 07 CBC WBC 4.0-11.0 (K/uL) 6.7 RBC 3.80-5.30 (M/uL) 3.95 Hemoglobin 11.5-15.8 (g/dL) 12.3 Hematocrit 35.0-45.0 (%) 37.9 MCV 80.0-98.0 (fL) 95.9 MCH 25.5-34.0 (pg) 31.1 MCHC 31.5-36.5 (g/dL) 32.5 RDW-CV 11.5-15.5 (%) 13.6 RDW-SD 35.5-50.0 (fl) 48.3 Platelet Count 140-400 (K/uL) 113 MPV 8.5-12.0 (fL) 9.7 08/16/21 0742 - 08/16/21 0742 CHEMISTRY 08/16/21 0742 08/16/21 0742 CHEMISTRY Glucose 70-100 (mg/dL) 98 Sodium 135-145 (meq/L) 142 Potassium 3.5-5.3 (meq/L) 3.5 Chloride 99-110 (meq/L) 116 CO2 20-29 (meq/L) 17 Anion Gap with K 6-20 (meq/L) 13 BUN 6-22 (mg/dL) 9 Creatinine 0.60-1.10 (mg/dL) 0.70 BUN/Creatinine Ratio 10.0-25.0 12.9 Calcium 8.5-10.5 (mg/dL) 7.9 Corrected Calcium 8.5-10.5 (mg/dL) 8.6 Phosphorus 2.5-4.5 (mg/dL) 1.1 Magnesium 1.8-2.4 (mg/dL) 2.0 Albumin 3.5-5.0 (g/dL) 3.1 eGFR >=60 (mL/min/1.73m2) >90 eGFR Non- >=60 (mL/min/1.73m2) 84 08/15/21 1342 - 08/15/21 1342 URINALYSIS 08/15/21 1342 08/15/21 1342 URINALYSIS Color Urine Adriana, Dark Yellow, Straw, Yellow, Colorless Straw Clarity Urine Clear Clear Specific [place] 1.002-1.030 1.015 Glucose Urine Negative Negative Bilirubin Urine Negative Negative Ketones Urine Negative, 5 mg/dL, 10 mg/dL Negative Blood Urine Negative Negative PH Urine 5.0, 5.5, 6.0, 6.5, 7.0, 7.5, 8.0 6.5 Protein Urine Negative Trace (10-20) mg/dL Nitrite Negative Negative Leukocyte Esterase Urine Negative Negative Urobilinogen < 2 mg/dL < 2 mg/dL WBC Urine Negative, 0-5 /hpf 0-5 /hpf RBC Urine Negative, 0-2 /hpf 0-2 /hpf Squamous Epithelial Cells Negative, Occ (0-10) /lpf, Few (11-20) /lpf Occ (0- 10) /lpf Bacteria Negative Negative Hyaline Cast 0-2 /lpf 0-2 /lpf 08/16/21 0742 - 08/16/21 0742 OTHER 08/16/21 0742 OTHER Age (Years) 66 Procedures Procedures Medical Decision Making Medical Decision Making documented in this encounter Consult Notes Inderjit Perea MD - 08/15/2021 12:57 PM CDTAssociated Order(s): CONSULT PSYCHIATRY Psychiatry Consultation Note: Adult CONSULT PSYCHIATRY Consult performed by: Inderjit Perea MD Consult ordered by: Alicia Jerome MD Assessment / Plan Clinical Formulation Gabriela is a 66 year old female who was admitted to the hospital due to a fracture of her left hip which led to her having to have an ORIF on 08/14. In the polls or surveys interviewer of 08/15 she became acutely agitated requiring prn medications and a behavioral rapid response. She had several episodes of trying to pull out lines and bite off her wristband. At the time of interview Gabriela was minimally cooperative and very labile. She currently is meeting criteria for Delirium, Acute, Hyperactive. At the time of interview she does not have capacity and decisions regarding her treatment should be coordinated with asubstitute decision maker. In order to manage her agitation and delirium she will be placed on a bedtime dose of haldol 2mg IV and prn dosages if needed during the day. Her previous QTc reading was 492. I would advise the medicine service keep an eye on her magnesium level as mg abnormalities do have a correlation with developing TDP. Delirium, Acute, Hyperactive Plan: - haldol 2mg IV at bedtime - Haldol 1mg q6h prn for agitation - Discontinue seroquel 12.5mg - advise medicine to monitor MG level as it has close association with development of TDP - Psych to follow Reason for Consult "extreme paranoia, concern for acute psychosis" HPI / History / ROS HPI Per chart review, Gabriela is a 66 year old female who was initially seen in the clinic and was reported to have tried to get in the wrong car and then wound up falling after she tripped. This fall resulted in a fracture of her left hip. She does have a past medical history significant for breast cancer and hyperlipidemia. On 08/14/21 she had a ORIF of her fractured hip. She has struggled with urinary retention and has had an indwelling catheter secondary to this. She reportedly lives at home with her and is independent with ADLs. On the date of this assessment nursing noted that patient was agitated and had severe anxiety unable to state where she was. She was given prn ativan due to this. She later became increaisngly agitated and pulled out her IV, chewed off her armbands and was verbally and physically threatening staff which required a behavioral rapid. She reportedly thought she was being killed with alethal dose of ativan. She was then given olanzapine 5mg and noted to be less agitated after this. She also has been managed with bedtime seroquel at 100mg. Patient interview, Patient was seen at bedside with her Skip present. She initially would not address this health underwriter and would simply say she is just not answering any questions. When briefed on what happened last night she would not clarify how she felt during that time. She continued to state that she will not answer the same questions that everyone else has asked. Her Skip reports that he has never seenher like this before and she usually is not angry like this. When skip would speak she would get very upset that he was talking. She refused to answer if she felt confused and also refused to answer orientation or self harm questions. Skip reports she has never had any episodes of self harm or thoughts pertaining to such. She then began to refuse all questions and demand this health underwriter leave. Upon later presentation with attending psychiatrist Dr. Garcia, Gabriela continued to refuse questions stating that they were already answered once before. She continued to be upset if skip would aid in helping her answer questions. When asked about her kids she states that she does not have kids or grandkids and looked at skip and stated "he made sure to take care of that". Skip reported that they do have kids and grandkids. When the idea of skip serving as substitute consent was brought up she looked at skip and said "I dare you". She denied experiencing any auditory or visual hallucinations and she did become tearful at one point. She reports that her was not at the bedside yesterdaywhen he reports that he was. She continued to tell the attending psychiatrist that he needed to "change his costume" and report back "to the other cronies". She then began to state she just wanted to go home and began crying. Past Psychiatric History Takes 10mg of lexapro, 300mg gabapentin tid, 50mg trazodone at bedtime. No prior hospitalizations per chart review. Substance Abuse History Non reported or documented in past history. History Current Facility-Administered Medications Medication Dose Route Frequency melatonin tablet 6 mg 6 mg Oral at bedtime LORazepam (ATIVAN) 2 mg/mL injection solution 0.5 mg 0.5 mg IV 1 time spironolactone (ALDACTONE) tablet 12.5 mg 12.5 mg Oral daily oxyCODONE (OXY-IR) tablet 2.5 mg 2.5 mg Oral Every 6 hours prn Or oxyCODONE (OXY-IR) tablet 5 mg 5 mg Oral Every 6 hours prn acetaminophen (TYLENOL) tablet 1,000 mg 1,000 mg Oral 3 times a day QUEtiapine (SEROquel) tablet 12.5 mg 12.5 mg Oral at bedtime sodium chloride 0.9% IV solution IV Continuous nalOXone (NARCAN) injection solution (vial) 0.4 mg 0.4 mg Injection Every 2 minutes prn nalOXone (NARCAN) injection solution (vial) 0.2 mg 0.2 mg Injection Every 2 minutes prn senna-docusate sodium (SENOKOT-S;PERICOLACE) tablet 1 tablet 1 tablet Oral 2 times a day polyethylene glycol (MIRALAX) packet 1 packet 1 packet Oral Daily senna-docusate sodium (SENOKOT-S;PERICOLACE) tablet 1 tablet 1 tablet Oral 2 times a day prn bisacodyl (DULCOLAX) suppository 10 mg 10 mg Rectal 1 time a day prn enoxaparin (LOVENOX) subcutaneous injection solution 40 mg 40 mg Subcutaneous Daily ceFAZolin (ANCEF) 2000 mg/20 mL sterile water IV syringe 2,000 mg IV Every 8 hours sodium chloride 0.9% flush (adult) 10 mL 10 mL IV 2 times a day and prn docusate sodium (THEREVAC-SB MINI;ENEMEEZ MINI) 283 MG enema 1 enema 1 enema Rectal 1 time a day prn ondansetron (ZOFRAN ODT) dispersible tablet 4 mg 4 mg Oral 4 times a day prn And ondansetron (ZOFRAN) injection solution 4 mg 4 mg IV 4 times a day prn HYDROmorphone (DILAUDID) injection solution (conc: 0.5 mg/0.5mL) 0.5 mg 0.5 mg IV Every 4 hoursprn escitalopram (LEXAPRO) tablet 10 mg 10 mg Oral daily lansoprazole (PREVACID) capsule 30 mg 30 mg Oral Every morning letrozole (FEMARA) tablet 2.5 mg 2.5 mg Oral daily levothyroxine tablet 25 mcg 25 mcg Oral at bedtime metoprolol succinate (TOPROL XL) SR half-tablet (24 hr) 12.5 mg 12.5 mg Oral daily topiramate (TOPAMAX) tablet 25 mg 25 mg Oral Every morning potassium chloride (KLOR-CON M20) CR tablet 20 mEq 20 mEq Oral 2 times a day montelukast (SINGULAIR) tablet 10 mg 10 mg Oral Daily budesonide (PULMICORT) 0.5 mg/2 mL inhalation soln 1 mg 1 mg Nebulization 2 times a day atorvaSTATin (LIPITOR) tablet 20 mg 20 mg Oral daily umeclidinium (INCRUSE ELLIPTA) 62.5 mcg/puff inhaler 1 puff 1 puff Inhalation Daily topiramate (TOPAMAX) tablet 50 mg 50 mg Oral at bedtime Allergies Allergen Reactions Adhesives Rash Prilosec [Omeprazole] Nausea Past Medical History: Diagnosis Date Anemia History of Breast cancer (HCC) Hyperlipidemia Irregular heartbeat Reflux Past Surgical History: Procedure Laterality Date BREAST RECONSTRUCTION 1996 1978; [address] Rivera COLONOSCOPY 04/10/15 very minimal colitis, mildly inflamed internal hemorrhoids; Dr. Rivera COLONOSCOPY N/A 05/06/2021 Dr. Chidi Mcwilliams - see scanned report D & C ~1975 HYSTERECTOMY MASTECTOMY BILATERAL 1996 Dr. Goodwin Family History Problem Relation Age of Onset Breast Cancer Mother 54 Heart Attack Father age 82 of [place] Heart Disease Father Not otherwise listed - Cancer Sister ? 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 Tobacco Use Smoking status: Never Smoker Smokeless tobacco: Never Used Substance and Sexual Activity Alcohol use: No Alcohol/week: 0.0 standard drinks Drug use: No Social Determinants of Health Physical Activity: Days of Exercise per Week: Minutes of Exercise per Session: Stress: Feeling of Stress : Social Connections: Frequency of Communication with Friends and Family: Frequency of Social Gatherings with Friends and Family: Attends [employer] Services: Active Member of Clubs or Organizations: Attends Club or Organization Meetings: Marital Status: Intimate Partner Violence: Fear of Current or Ex-Partner: Emotionally Abused: Physically Abused: Sexually Abused: Financial Resource Strain: Difficulty of Paying Living Expenses: Food Insecurity: Worried About Running Out of Food in the Last Year: Ran Out of Food in the Last Year: Transportation Needs: Lack of Transportation (Medical): Lack of Transportation (Non-Medical): Review of Systems Review of Systems Physical / Results Current Vital Signs Temp: 99.3 F (37.4 C) BP: 111/64 SpO2: 94 % Resp: 18 Pulse: 98 O2 Device: NC - no humidity O2 Flow Rate (L/min): 2 l/min Pain Rating: Other (specify) (DIANA) General appearance/behavior: refusing to participate in most of the interview, white, female, casual, poor eye contact, non-compliant, normal energy Gait and station: not observed, lying in bed during interview Motor: normal muscle strength and tone with no atrophy or abnormal movement and no unusual movements Speech: normal rate and rhythm Thought process: perseverative on not answering questions Association: intact Thought content: does exhibit delusional thinking related to everyone wearing costumes Judgment/insight:impaired by cognitive function Memory: recent memory: Abnormal Attention/concentration: poor tracking during interview Orientation: refused orientation questions Language: intact to naming Fund of knowledge: refusing to answer historical questions Mood: angry Affect: angry Safety: denied thoughts of self harm Suicide Risk Assessment: Suicide Risk Assessment: patient did not report information suggestive of risk Harm: denies thoughts of harm to self or others Risk: low Safety Plan: structured plans Associated attestation - Aleks Garcia MD - 08/20/2021 9:01 AM CDT Attending Note: I reviewed with the resident and staff, then met with the patient and repeated the molina elements of the history and examination. I directed the medical decision making. I have reviewedthe documentation and concur with its content. Met with patient and in presence of resident. Appears to be having delirium at this point that would benefit from haldol. Fink MD Bandar Garcia Sunita, MD - 08/14/2021 12:21 PM CDTAssociated Order(s): CONSULT CARDIOLOGY Cardiology Inpatient Consult Note Date of Service: 08/14/2021 Patient: Gabriela Mckenna : 1955 Age: 66yr CSN: [id number] Room/Bed: [facility] Primary Care Physician: Chhaya Krishnamurthy, SURVEY WORKER-PROCESS MOLD TECHNICIAN Admit Date: 08/13/2021 Requesting Physician: Alicia Jerome MD Cardiology Consult Attending: Demetra Portillo MD PhD Outpatient Fish Bin Tender: None Reason For Consultation: Preoperative evaluation. Assessment and Plan: Ms. Mckenna is a 66-year-old woman with history of SVT s/p ablation, hypertension, who was admitted to the hospital with a mechanical fall. She unfortunately has left proximal both bone forearm fracture and right left closed mid humeral neck fracture. Cardiology is consulted for preoperative evaluation as her EKG showed ventricular bigeminy. Patient does not have any known significant coronary artery disease history. She appears close to euvolemic on examination versus mildly fluid overloaded. BNP last year was 20. She may have underlying sleep apnea, diastolic heart failure which most likely is causing the pulmonary hypertension. Shehas frequent PVCs with intermittent ventricular bigeminy which are asymptomatic. The episode of bradycardia in the morning was vasovagal in nature. I also reviewed the strips with EP as she had 2:1 high grade block. No sinus bradycardia. Preoperative cardiac evaluation Mechanical fall with left forearm both bone and left femur fracture. Episode of AV block 2:1 for about 6 minutes, most likely vasovagal Ventricular bigeminy/PVCs chronic on metoprolol since 2008 Episode of AVNRT s/p ablation in 2007 Dr. Kline Frequent PVCs since 2007, stress test negative in 2008 No known CAD Hypertension Hyperlipidemia Non smoker Obesity BMI 34 Possible sleep apnea Chronic diastolic heart failure Recommendations. 1. From cardiac standpoint she is at moderate risk for perioperative major cardiac event. The surgery is semiurgent. No prohibitive risk. Okay to proceed for surgery with cardiac monitoring, cautious volume management. She is at risk of developing pulmonary edema/congestion and requiring diuretics. Will recommend restarting spironolactone as soon as possible after the surgery. 2. Continue home atorvastatin. 3. BNP ordered to get a baseline. Last year was 20. 4. Can hold metoprolol or continue the low dose and monitor closely on telemetry. If patient develops recurrent bradycardia during the hospitalization - I would recommend discontinuing metoprolol and place Ziop[place] at discharge. 5. No further ischemic evaluation needed. 6. For ventricular bigeminy/PVCs ensure K is >4.0 and Mag >2.0. 7. Consider sleep apnea evaluation outpatient. 8. Cardiology service will sign off. Do not hesitate to call if any questions or concerns. Plan discussed with patient and her at bedside. Anesthesia and surgery team updated. Demetra Portillo MD, PhD [employer] [facility] History of Present illness: Ms. Mckenna is a 66-year-old woman with history of SVT s/p ablation, hypertension, who was admitted to the hospital with a mechanical fall. She unfortunately has left proximal both bone forearm fracture and right left closed mid femoral neck fracture. Cardiology is consulted for preoperative evaluation as her EKG showed ventricular bigeminy. History is obtained from the patient and her . Her cardiac history is significant for AVNRT with successful radiofrequency ablation of the slow AV cruz pathway [place] [address] Kline. She has not had any issues with her heart rate since then. She has history of frequent PVCs documented at that time. She had a stress test without any evidence of ischemia and was started on metoprolol 25 mg twice daily for PVCs. She tells me that due to heart rate being on the lower side about a year or so ago this was reduced to 12.5 mg twice daily. She denies any other concerns with her heart. No chestpain or shortness of breath at rest or with walking. No significant leg swelling, orthopnea or PND. She does have some cough she attributes to her asthma. She is able to climb 2 flight of stairs however due to in knee pain she is somewhat limited in her activity. She tells me that she was going around a pickup truck to get into the pickup truck and got caught onthe hinge of the backside and fell down hard on the concrete surface. She denies any chest pain prior to it. No slowing of the heart rate or fluttering sensation. No lightheadedness or dizziness prior to this fall. Since admission her basic lab work is normal. EKG showed normal sinus rhythm with frequent PVCs and intermittent ventricular bigeminy. Of note patient also had an episode of bradycardia at 6 in the morning when she was stood up with assistance to use the commode and was in a lot of pain. She had slow heart rate in 30s at that time which came back normal within 6 minutes when she was back in the bed. She felt lightheaded dizzy and nauseous at that time. Echocardiogram showed EF of 60% without any wall motion abnormality. Moderatepulmonary hypertension with PA systolic pressure 57 dilated IVC with minimal collapse. Normal RV systolic function. No significant valvular heart disease. The plan is for her to have surgical repair of the left elbow fracture with possible radial head replacement and surgical repair of the left hip fracture possible arthroplasty under general anesthesia. Of note patient is obese with a BMI of 33. Has history of hypertension. Was on spironolactone at home in addition to metoprolol. According to the she does snore at night but has never been evaluated for sleep apnea. Non-smoker. No significant premature coronary artery disease in the family. Review of System: A complete review of systems has been been performed. Pertinent positives noted in HPI. All other systems negative. Physical Exam: Vitals: 08/13/21 2344 08/14/21 0046 08/14/21 0648 08/14/21 1122 BP: 113/43 Pulse: 55 69 74 Resp: 22 17 Temp: 98.3 F (36.8 C) SpO2: 90% 95% Height: 1.727 m (5' 8") Wt Readings from Last 3 Encounters: 08/13/21 100.7 kg (222 lb) 08/01/21 101.2 kg (223 lb) 07/21/21 101.2 kg (223 lb) Body mass index is 33.75 kg/m. General: woman, lying in bed, not in acute distress. ENT: Hearing normal Lungs: Clear to auscultation bilaterally. No crackles or wheezes. Heart: Regular rhythm, normal S1 and S2, 3/6 systolic murmur left parasternal area, non-displaced PMI. No palpable heave. No carotid bruit bilaterally. No JVD. Extremities are warm, well perfused. No edema. 2+ dorsalis pedis pulses. Left arm in soft cast. Abdomen: Soft, non tender, nondistended Skin: No rashes. Neuro: Alert, oriented to time, place and person. Psych: Appropriate mood and affect Past Medical Hisotry: Past Medical History: Diagnosis Date Anemia History of Breast cancer (HCC) Hyperlipidemia Irregular heartbeat Reflux Past Surgical History: Past Surgical History: Procedure Laterality Date BREAST RECONSTRUCTION 1996 1978; [address] Rivera COLONOSCOPY 04/10/15 very minimal colitis, mildly inflamed internal hemorrhoids; Dr. Rivera COLONOSCOPY N/A 05/06/2021 Dr. Chidi Mcwilliasm - see scanned report D & C ~1975 HYSTERECTOMY MASTECTOMY BILATERAL 1996 Dr. Goodwin Social History: reports that she has never smoked. She has never used smokeless tobacco. She reports that she does not drink alcohol and does not use drugs. Family History: Family History Problem Relation Age of Onset Breast Cancer Mother 54 Heart Attack Father age 82 of [place] Heart Disease Father Not otherwise listed - Cancer Sister ? colon cancer Not otherwise listed - Cancer Sister Skin cancers Breast Cancer Sister dx in her late 40's; recurrence at 63 Negative Son Negative Son Breast Cancer Maternal Aunt unknown age of onset Not otherwise listed - Cancer Paternal Grandmother Leukemia Medications: Medications Prior to Admission Medication Sig Dispense Refill Last Dose levothyroxine 25 mcg tablet Take 25 mcg by mouth 1 time per day 08/12/2021 at pm calcium carbonate 600 mg tablet Take 600 mg by mouth 1 time per day 08/13/2021 at am acetaminophen-codeine #3 (TYLENOL #3) 300-30 MG tablet Take 1 tablet by mouth Every 8 hours as needed for severe pain 30 tablet 0 Past Month at Unknown time escitalopram (LEXAPRO) 10 mg tablet Take 10 mg by mouth 1 time per day 08/13/2021 at am gabapentin (NEURONTIN) 300 mg capsule Take 1 capsule (300 mg) in the morning and 2 capsules (600mg) with dinner 08/13/2021 at am letrozole (FEMARA) 2.5 mg tablet Take 2.5 mg by mouth 1 time per day 08/13/2021 at am levalbuterol (XOPENEX HFA) 45 MCG/ACT inhaler Inhale 2 puffs by INHALATION route EVERY 4 HOURS NEEDED Past Month at Unknown time metoprolol succinate (TOPROL XL) 25 mg SR tablet (24 hr) Take 12.5 mg by mouth 1 time per day08/13/2021 at am SUMAtriptan (IMITREX) 6 MG/0.5ML subcutaneous injection (auto-injector) INJECT 0.5 ML UNDER THE SKIN NEEDED. Greater than 1 Month at Unknown time SPIRIVA RESPIMAT 1.25 MCG/ACT inhaler (Asthma) Inhale 2 puffs (1 dose) EVERY DAY Past Week at Unknown time traZODone (DESYREL) 50 mg tablet Take 50 mg by mouth every night at bedtime 08/12/2021 at pm omega-3 fatty acids (FISH OIL) 1000 mg capsule Take 1 capsule every day by oral route. 08/13/2021 at am budesonide (PULMICORT) 0.5 mg/2 mL inhalation solution INHALE 2 vials BY MOUTH TWICE DAILY. 08/13/2021 at am montelukast (SINGULAIR) 10 mg tablet Take 1 tablet every day by oral route. 08/13/2021 at am spironolactone (ALDACTONE) 25 mg tablet Take 12.5 mg by mouth 1 time per day 08/13/2021 at am azelastine (ASTELIN) 137 mcg/spray nasal spray [place] 2 sprays into each nostril 1 time per day08/13/2021 at am benzonatate (TESSALON) 200 MG capsule Take 200 mg by mouth 3 times a day as needed 08/12/2021 at Unknown time budesonide-formoterol (SYMBICORT) 160-4.5 mcg/puff inhaler Inhale 2 puffs orally 2 times a day Shake well before using. Rinse mouth after use. 08/13/2021 at am atorvaSTATin (LIPITOR) 20 mg tablet TAKE 1 TABLET BY MOUTH EVERY DAY. 08/13/2021 at am topiramate (TOPAMAX) 25 mg tablet TAKE 1 TABLET BY MOUTH IN THE MORNING AND 2 TABLETS AT BEDTIME 08/13/2021 at am celecoxib (CELEBREX) 400 mg capsule TAKE ONE CAPSULE BY MOUTH EVERY DAY 08/13/2021 at am potassium chloride (KLOR-CON M20) 20 MEQ CR tablet Take 1 tablet (20 mEq) in the morning and 2 tablets (40 mEq) in the evening 08/12/2021 at pm aspirin 81 mg enteric coated tablet Take 81 mg by mouth 1 time per day 08/13/2021 at am lansoprazole (PREVACID) 30 mg capsule Take 30 mg by mouth 1 time a day in the morning. 08/13/2021 at am sumatriptan (IMITREX) 100 mg tablet Take 1 tablet (100 mg) in the morning and 2 tablets (200 mg)at bedtime 08/13/2021 at am indomethacin (INDOCIN) 25 mg capsule Take 1 capsule (25 mg) by mouth 3 times a day with meals for 14 days (Patient not taking: Reported on 08/13/2021) 42 capsule 0 Not Taking at Unknown time budesonide (PULMICORT) 1 MG/2ML inhalation solution Nebulize one unit-dose for inhalation TWICE DAILY PERFOROMIST 20 MCG/2ML inhalation solution GIVE 1 VIAL INHALATION TWICE A DAY at Not started yet SUMAtriptan Refill (IMITREX STATDOSE REFILL) 6 MG/0.5ML SOLN injection Inject 6 mg subcutaneously as needed. Current Facility-Administered Medications Medication Dose Route Frequency Provider Last Rate Last Admin lactated ringers IV solution IV Continuous Yenifer Espino MD 25 mL/hr at 08/14/21 1108 New Bag/Tubing at 08/14/21 1108 sodium chloride 0.9% flush (adult) 10 mL 10 mL IV 2 times a day and prn Alicia Jerome MD 10mL at 08/13/212032 nalOXone (NARCAN) injection solution (vial) 0.4 mg 0.4 mg Injection Every 2 minutes prn Alicia Jerome MD nalOXone (NARCAN) injection solution (vial) 0.2 mg 0.2 mg Injection Every 2 minutes prn Alicia Jerome MD heparin (porcine) injection solution 5,000 Units 5,000 Units Subcutaneous Every 8 hours Alicia Jerome MD 5,000 Units at 08/13/212219 sodium chloride 0.9% IV solution IV Continuous Alicia Jerome MD 100 mL/hr at 08/13/212032 New Bag at 08/13/212032 acetaminophen (TYLENOL) tablet 650 mg 650 mg Oral Every 4 hours prn Alicia Jerome MD 650 mgat 08/14/21 0046 melatonin tablet 3 mg 3 mg Oral Bedtime prn Alicia Jerome MD senna-docusate sodium (SENOKOT-S;PERICOLACE) tablet 2 tablet 2 tablet Oral 2 times a day prn Alicia Jerome MD And bisacodyl (DULCOLAX) suppository 10 mg 10 mg Rectal 1 time a day prn Alicia Jerome MD And docusate sodium (THEREVAC-SB MINI;ENEMEEZ MINI) 283 MG enema 1 enema 1 enema Rectal 1 time a day prn Alicia Jerome MD ondansetron (ZOFRAN ODT) dispersible tablet 4 mg 4 mg Oral 4 times a day prn Alicia Jerome MD And ondansetron (ZOFRAN) injection solution 4 mg 4 mg IV 4 times a day prn Alicia Jerome MD 4 mg at 08/14/21 0616 oxyCODONE (OXY-IR) tablet 5 mg 5 mg Oral Every 6 hours prn Alicia Jerome MD 5 mg at 08/14/21 0421 Or oxyCODONE (OXY-IR) tablet 10 mg 10 mg Oral Every 6 hours prn Alicia Jerome MD HYDROmorphone (DILAUDID) injection solution (conc: 0.5 mg/0.5mL) 0.5 mg 0.5 mg IV Every 4 hoursprn Alicia Jerome MD 0.5 mg at 08/14/21 1151 escitalopram (LEXAPRO) tablet 10 mg 10 mg Oral daily Alicia Jerome MD lansoprazole (PREVACID) capsule 30 mg 30 mg Oral Every morning Alicia Jerome MD letrozole (FEMARA) tablet 2.5 mg 2.5 mg Oral daily Alicia Jerome MD levothyroxine tablet 25 mcg 25 mcg Oral at bedtime Alicia Jerome MD 25 mcg at 08/13/21 2219 metoprolol succinate (TOPROL XL) SR half-tablet (24 hr) 12.5 mg 12.5 mg Oral daily Alicia Jerome MD 12.5 mg at 08/14/21 0938 topiramate (TOPAMAX) tablet 25 mg 25 mg Oral Every morning Alicia Jerome MD 25 mg at 08/14/21 0937 potassium chloride (KLOR-CON M20) CR tablet 20 mEq 20 mEq Oral 2 times a day Alicia Jerome MD 20 mEq at 08/14/21 1240 montelukast (SINGULAIR) tablet 10 mg 10 mg Oral Daily Alicia Jerome MD budesonide (PULMICORT) 0.5 mg/2 mL inhalation soln 1 mg 1 mg Nebulization 2 times a day Alicia Jerome MD 1 mg at 08/14/21 0648 atorvaSTATin (LIPITOR) tablet 20 mg 20 mg Oral daily Alicia Jerome MD umeclidinium (INCRUSE ELLIPTA) 62.5 mcg/puff inhaler 1 puff 1 puff Inhalation Daily Alicia Jerome MD 1 puff at 08/14/21 1156 topiramate (TOPAMAX) tablet 50 mg 50 mg Oral at bedtime Alicia Jerome MD 50 mg at 08/13/21 2219 Allergies: Allergies as of 08/13/2021 - Reviewed 08/13/2021 Allergen Reaction Noted Adhesives Rash 06/18/2021 Prilosec [omeprazole] Nausea 09/16/2017 Laboratory Data: CBC: Recent Labs 08/01/21 1106 08/01/21 1106 08/13/21 1104 08/13/21 1505 08/14/21 0918 WBC 5.5 < > 5.6 9.5 8.6 NEUTROABS 3.4 -- 3.4 -- 6.6 HEMOGLOBIN 15.6 < > 14.5 15.0 14.1 HEMATOCRIT 45.7* < > 43.0 46.1* 44.9 MCV 95.3 < > 95.5 98.7* 98.2* PLTCOUNT 183 < > 171 151 139* < > = values in this interval not displayed. Basic Metabolic Panel: Recent Labs 08/13/21 1104 08/13/21 1104 08/13/21 1505 08/13/21 1505 08/14/21 0918 NA 143 -- 142 -- 141 POTASSIUM 4.1 -- 4.0 -- 3.8 CL 109* -- 112* -- 113* CO2 26 -- 23 -- 20 BUN 12 -- 11 -- 13 CREATSERUM 1.09* -- 0.91 -- 0.87 CA 8.3* < > 8.7 < > 8.0* GLUCOSE 85 -- 94 -- 100 < > = values in this interval not displayed. Cardiac Enzymes: Recent Labs 08/01/21 1106 TROPONINI <0.017* BNP: Coagulation: Recent Labs 08/13/21 1231 08/13/21 1504 08/13/21 2040 PT 9.5* 13.4 15.4* INR 1.0 1.1 1.3* D-Dimer: Recent Labs 08/01/21 1106 DDIMER 0.85* Liver Function Tests: Recent Labs 08/01/21 1106 08/13/21 1104 AST 48* 36 ALT 66 57 ALKPHOS 168* 119* BILITOTAL 0.4 0.4 PROTEINTOTAL 6.9 6.4* ALBUMIN 3.3* 3.3* Recent Labs 08/13/21 1104 LIPASE 86 Hemoglobin A1C: Fasting Lipid Panel: Thyroid Function Tests: Recent Labs 08/13/21 1104 TSH 2.01 Demetra Portillo MD, PhD Cardiology, [facility] Kai Clark MD - 08/13/2021 3:49 PM CDT Orthopedic Consult Note Assessment: Left proximal both bone forearm fracture with impaction of radius at level of neck, nondisplaced, closed, mild comminution. Distal proximal ulnar fracture with nondisplaced, closed and mild angulation Right left closed mid femoral neck fracture Plan: #N.p.o. at midnight for potential operative fixation of the proximal radius and ulna and/or left femoral neck fracture # Orders placed for lateral elbow plain film xray # Will obtain Left elbow and left hip CT scans for surgical planning # long arm splint placed to left upper extremity for comfort # Application of ice to left upper extremity and left hip as needed for assistance with pain control # Elevate left upper extremity for reduction of edema Consulted by: Emergency room physician Reason for consultation: Fall with associated proximal left radial and ulnar fracture and left hip fracture HPI: Linette is a 66-year-old female who was leaving a doctor appointment this morning when she hit her leg on a hitch of a truck and fell. She did not hit her head or lose consciousness. She had immediate pain to her left hip and her left elbow. She was transferred from [place], [place] to [facility] for definitive treatment. Anticoagulation: No Tobacco use: No PMH: Past Medical History: Diagnosis Date Anemia History of Breast cancer (HCC) Hyperlipidemia Irregular heartbeat Reflux PSH: Past Surgical History: Procedure Laterality Date BREAST RECONSTRUCTION 1996 1978; [address] Rivera COLONOSCOPY 04/10/15 very minimal colitis, mildly inflamed internal hemorrhoids; Dr. Rivera COLONOSCOPY N/A 05/06/2021 Dr. Chidi Mcwilliams - see scanned report D & C ~1975 HYSTERECTOMY MASTECTOMY BILATERAL 1996 Dr. Goodwin Home Medications: No current facility-administered medications on file prior to encounter. Current Outpatient Medications on File Prior to Encounter Medication Sig Dispense Refill levothyroxine 25 mcg tablet Take 25 mcg by mouth 1 time per day indomethacin (INDOCIN) 25 mg capsule Take 1 capsule (25 mg) by mouth 3 times a day with meals for 14 days 42 capsule 0 acetaminophen-codeine #3 (TYLENOL #3) 300-30 MG tablet Take 1 tablet by mouth Every 8 hours as needed for severe pain 30 tablet 0 budesonide (PULMICORT) 1 MG/2ML inhalation solution Nebulize one unit-dose for inhalation TWICE DAILY escitalopram (LEXAPRO) 10 mg tablet Take 10 mg by mouth 1 time per day PERFOROMIST 20 MCG/2ML inhalation solution GIVE 1 VIAL INHALATION TWICE A DAY gabapentin (NEURONTIN) 300 mg capsule TAKE 1 CAPSULE BY MOUTH THREE TIMES DAILY letrozole (FEMARA) 2.5 mg tablet Take 2.5 mg by mouth 1 time per day levalbuterol (XOPENEX HFA) 45 MCG/ACT inhaler Inhale 2 puffs by INHALATION route EVERY 4 HOURS NEEDED metoprolol succinate (TOPROL XL) 25 mg SR tablet (24 hr) TAKE 1 TABLET BY MOUTH NEEDED For TACHYCARDIA SUMAtriptan (IMITREX) 6 MG/0.5ML subcutaneous injection (auto-injector) INJECT 0.5 ML UNDER THE SKIN NEEDED. SPIRIVA RESPIMAT 1.25 MCG/ACT inhaler (Asthma) Inhale 2 puffs (1 dose) EVERY DAY traZODone (DESYREL) 50 mg tablet Take 50 mg by mouth every night at bedtime omega-3 fatty acids (FISH OIL) 1000 mg capsule Take 1 capsule every day by oral route. budesonide (PULMICORT) 0.5 mg/2 mL inhalation solution INHALE 2 vials BY MOUTH TWICE DAILY. montelukast (SINGULAIR) 10 mg tablet Take 1 tablet every day by oral route. spironolactone (ALDACTONE) 25 mg tablet Take 12.5 mg by mouth 1 time per day azelastine (ASTELIN) 137 mcg/spray nasal spray [place] 2 sprays into each nostril 1 time per day benzonatate (TESSALON) 200 MG capsule Take 200 mg by mouth 3 times a day as needed budesonide-formoterol (SYMBICORT) 160-4.5 mcg/puff inhaler Inhale 2 puffs orally 2 times a day Shake well before using. Rinse mouth after use. atorvaSTATin (LIPITOR) 20 mg tablet TAKE 1 TABLET BY MOUTH EVERY DAY. topiramate (TOPAMAX) 25 mg tablet TAKE 1 TABLET BY MOUTH IN THE MORNING AND 2 TABLETS AT BEDTIME celecoxib (CELEBREX) 400 mg capsule TAKE ONE CAPSULE BY MOUTH EVERY DAY potassium chloride (KLOR-CON M20) 20 MEQ CR tablet Take 20 mEq by mouth 3 times a day aspirin 81 mg enteric coated tablet Take 81 mg by mouth 1 time per day lansoprazole (PREVACID) 30 mg capsule Take 30 mg by mouth 1 time a day in the morning. sumatriptan (IMITREX) 100 mg tablet Take 100 mg by mouth as needed. SUMAtriptan Refill (IMITREX STATDOSE REFILL) 6 MG/0.5ML SOLN injection Inject 6 mg subcutaneously as needed. Calcium Carbonate (CALCIUM 600 PO) Take 600 mg by mouth 1 time per day. 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 Tobacco Use Smoking status: Never Smoker Smokeless tobacco: Never Used Substance and Sexual Activity Alcohol use: No Alcohol/week: 0.0 standard drinks Drug use: No Sexual activity: Not on file Other Topics Concern Service Not Asked Blood Transfusions Not Asked Caffeine Concern Yes Comment: Very seldom diet pop-maybe 1 x per week Occupational Exposure Not Asked Hobby Hazards Not Asked Sleep Concern Not Asked Stress Concern Not Asked Weight Concern Not Asked Special Diet Not Asked Back Care Not Asked Exercise Not Asked Bike Helmet Not Asked Seat Belt Not Asked Self-Exams Not Asked Social History Narrative Not on file Social Determinants of Health Financial Resource Strain: Difficulty of Paying Living Expenses: Food Insecurity: Worried About Running Out of Food in the Last Year: Ran Out of Food in the Last Year: Transportation Needs: Lack of Transportation (Medical): Lack of Transportation (Non-Medical): Physical Activity: Days of Exercise per Week: Minutes of Exercise per Session: Stress: Feeling of Stress : Social Connections: Frequency of Communication with Friends and Family: Frequency of Social Gatherings with Friends and Family: Attends [employer] Services: Active Member of Clubs or Organizations: Attends Club or Organization Meetings: Marital Status: Intimate Partner Violence: Fear of Current or Ex-Partner: Emotionally Abused: Physically Abused: Sexually Abused: Family History Family History Problem Relation Age of Onset Breast Cancer Mother 54 Heart Attack Father age 82 of [place] Heart Disease Father Not otherwise listed - Cancer Sister ? colon cancer Not otherwise listed - Cancer Sister Skin cancers Breast Cancer Sister dx in her late 40's; recurrence at 63 Negative Son Negative Son Breast Cancer Maternal Aunt unknown age of onset Not otherwise listed - Cancer Paternal Grandmother Leukemia Review of systems: Gen: no fevers/chills HEENT: no sore throat/flu sxs CV: no chest pain/SOB Resp: no cough/wheezing GI: no abdominal pain/nausea/vomiting : no dysuria/hematuria Neuro: no dizziness/lightheadedness Psych: no personality changes/hallucinations MSK: Pain left elbow and left hip Physical Exam: Vitals: 08/13/21 1426 08/13/21 1430 08/13/21 1433 BP: 103/40 102/47 Pulse: 37 38 73 Resp: 16 8 Temp: 98.1 F (36.7 C) SpO2: 91% 93% Gen: Lying in bed, NAD Resp: Quiet, nonlabored respirations on RA Cards: Reg rate as above Abd: Soft, nontender, nondistended. Psych: Normal affect & mood Neuro: No focal deficits, moves all extremities. Speech is normal. MSK: RLE: No breaks in the skin/lacerations. Sensation intact to light touch to sural/saphenous/deep peroneal/superficial peroneal/tibial nerves. Able to flex/extend big toe, plantarflexes/dorsiflexes. Toes are warm, well-perfused. DP/PT pulses palpable. LLE: No breaks in the skin/lacerations. Pain with log roll of left hip. Sensation intact to light touch to sural/saphenous/deep peroneal/superficial peroneal/tibial nerves. Able to flex/extend big toe, plantarflexes/dorsiflexes. Toes are warm, well-perfused. DP/PT pulses palpable. RUE: No breaks in the skin/lacerations. Sensation intact to light touch throughout radial/ulnar/median nerve distributions. Gives thumbs-up, makes OK sign, makes a fist. Fingers are warm, well-perfused. Radial pulse 2+. LUE No breaks in the skin/lacerations. Mild edema to left elbow. Sensation intact to light touch throughout radial/ulnar/median nerve distributions. Gives thumbs- up, makes OK sign, makes a fist although this causes significant pain. Fingers are warm, well-perfused. Radial pulse 2+. Labs: WBC- 9.5 H&H- 15.0/46.1 Imaging: Reviewed Kai Clark MD Orthopedic Surgery Resident - PGY-1 Associated attestation - Catarino Christensen MD - 08/14/2021 8:38 AM CDT I discussed the patient with the resident and personally interviewed and examined the patient. I verified in the medical record all resident documentation/findings, including history, physical exam, and medical decision making, and I agree with the resident's documentation. Ortho Pre-Op Note Dx: Left trans olecranon, trans radial neck fracture monteggia equivalent Left valgus impacted femoral neck fracture Plan: Surgical repair of left elbow fractures with possible radial head replacement, surgical repairof left hip fracture possible arthroplasty and any other indicated procedures Risks/Benefits/Alternatives to surgery and post-op rehab plan were discussed with the patient. Risksinclude but not limited to: Bleeding, possibility of transfusion, infection, injury to associated structures, DVT/PE, failure of procedure, reoperation, implant failure, persistent joint pain or stiffness. Loss of life/limb was discussed with the surgery. All questions answered, no guarantees implied or given I explained to the patient the severity of her injuries. I explained to her that her elbow will likely be stiff and that she could develop AVN of her left hip. She understands the risks and would like to proceed with surgery once she is medically optimized.documented in this encounter ED Notes Suresh Regalado MD - 08/13/2021 2:45 PM CDT Emergency Department Visit 08/13/2021 PT ID: Gabriela Mckenna is a 66yr old female CHIEF COMPLAINT: Chief Complaint Patient presents with Fall Pt was at clinic appt. Pt ran into hitch of pickup falling to ground. Sustained radial ulnar fx/left hip fx. Arrives in c-collar. CMS intact to L hand and L leg 1. Fall, initial encounter 2. Left displaced femoral neck fracture (HCC) 3. Closed displaced fracture of neck of left radius, initial encounter 4. Closed fracture of proximal end of left ulna, unspecified fracture morphology, initial encounter DISPOSITION AND PLAN: Patient Disposition: Patient Admitted and Treated in this Facility Patient will be admitted. Medical Decision Making / ED COURSE ED Course as of Aug 13 1839WedAug 13, 2021 1453 Gabriela Mckenna is a 66yr old female who presents for evaluation after a fall with known left proximal radius and ulna fracture as well as left femoral neck fracture. EMR, nursing notes and vital signs reviewed. Vital signs overall reassuring. On initial evaluation patient lying supine, appears quite uncomfortable. Reviewed outside x-ray imaging, CT imaging of the head and neck was reported as negative. IV access established. IV hydromorphone ordered for pain control. Labs ordered. Orthopedics was consulted shortly after arrival. Patient otherwise neurovascularly intact throughout the left upper and lower extremity. 1453 GCS 15. Neurological exam reassuring without evidence of any focal neurologic deficit. At this point I do not lower suspicion for an acute intracranial hemorrhage or skull fracture. No midline cervical/thoracic/lumbar spine tenderness to palpation, no step-offs, low suspicion for fracture or bagley bluxation. Breathing is nonlabored, patient denying any chest pain, bilateral breath sounds present, low suspicion for rib fracture, pneumothorax or other intrathoracic injury. Abdominal exam benign,low suspicion for any hollow viscus, solid organ, vascular or other critical intra-abdominal injury. 1534 WBC: 9.5 1534 CBC was reviewed and was without evidence of leukocytosis, patient otherwise afebrile. Hemoglobin stable. CBC overall reassuring. Hemoglobin: 15.0 1547 BMP reviewed and is without evidence of significant electrolyte abnormality, acidosis or acute kidney injury 1547 INR: 1.1 1702 Orthopedics evaluated the patient in the emergency department patient was placed in a splint byorthopedic resident, please see separate documentation for further details. 1834 CT imaging of the upper extremities performed following splint placement demonstrating transverse radial neck fracture with impaction and angulation as well as moderately comminuted and distractedproximal ulnar fracture with intra- articular extension. 1836 CT imaging of the left lower extremity demonstrating an oblique femoral neck fracture with mildimpaction. 1837 Patient updated regarding all laboratory and imaging findings. Plan at this point admission tomedicine service with orthopedics consultation with plan for likely operative intervention. Patientcase discussed with medicine service who agrees with and accepts admission. ED Medication Administration from 08/13/2021 1414 to 08/13/2021 1833 Date/Time Order Dose Route Action Action by 08/13/2021 1520 HYDROmorphone (DILAUDID) injection solution (conc: 1 mg/mL) 1 mg 1 mg IV Given Daisy Billy RN 08/13/2021 1632 HYDROmorphone (DILAUDID) injection solution (conc: 1 mg/mL) 1 mg 1 mg IV Given Korin Aguero RN 08/13/2021 1531 ondansetron (ZOFRAN) injection solution 4 mg 4 mg IV Given Korin Aguero RN HPI: HPI Gabriela Mckenna is a 66yr old female with a past medical history of breast cancer, hyperlipidemia who presents for evaluation after a fall. Patient reports that she was walking out of the clinic today when she subsequently tripped and fell landing on her left side. Denies head trauma or lossof consciousness. No neck or back pain. She sustained injuries to her left hip and left arm. She is not on chronic anticoagulation. Denies prior surgery to the left hip or left upper extremity. Nonumbness or tingling. She denies any preceding lightheadedness, dizziness, vision changes, weakness, numbness, shortness of breath, chest pain or abdominal pain. She was evaluated at an outside facility. Found to have a left femoral neck fracture as well as left radius and ulnar fracture CT head and neck were reported as negative. Patient was evaluated at an outside facility after sustaining a fall. REVIEW OF SYSTEMS: A 10 point review of systems was completed and was otherwise negative other than what was noted in the HPI PHYSICAL EXAM ED Triage Vitals [08/13/21 1426] Temp Temp Source Pulse Resp BP SpO2 O2 Flow Rate (L/min) O2 Device 98.1 F (36.7 C) -- 37 16 103/40 91 % -- RA General: Awake, alert, in no acute distress Skin: Warm and well perfused, no rash on gross inspection Head: Atraumatic and normocephalic Eyes: PERRL, EOMI, sclera clear. ENT/Mouth: No oral lesions. No oropharyngeal erythema, exudate or swelling. All oral structures appear midline. Neck: Supple and symmetric. Full ROM. No midline cervical spine tenderness Pulmonary: Breathing comfortably, CTAB. No wheezing or crackles. Cardiovascualr. RRR. Peripheral pulses palpable. LEs without edema Abdomen: Soft, non-distended, no tenderness to palpation, no rebound or guarding, no CVA tenderness Musculoskeletal: No midline thoracic or lumbar spine tenderness to palpation. RUE: No deformity, skin intact. Non-tender to palpation over the clavicle, AC joint, shoulder, arm, elbow, forearm, wrist and hand. Radial and ulnar pulses palpable. Fingers warm and well perfused. LUE: No deformity, skin intact. Non-tender to palpation over the clavicle, AC joint, shoulder and hand. Radial and ulnar pulses palpable. Fingers warm and well perfused. RLE: No deformity, skin intact. Non-tender to palpation over the hip, thigh, knee, lower leg, ankle and foot. LLE: No deformity, skin intact. Tenderness to palpation over the lateral aspect of the left hip with limited range of motion throughout the left lower leg due to pain at the left hip. Non-tender to palpation over the thigh, knee, lower leg, ankle and foot. DP and PT pulses palpable. Toes warm and well perfused. Neurologic: AAOx3. Speech clear. Moves all extremities appropriately. Follows commands in all extremities Psych: Appropriate mood and behavior. Appropriate affect. Good eye contact. MEDICATIONS & ALLERGIES: No current facility-administered medications on file prior to encounter. Current Outpatient Medications on File Prior to Encounter Medication Sig Dispense Refill levothyroxine 25 mcg tablet Take 25 mcg by mouth 1 time per day indomethacin (INDOCIN) 25 mg capsule Take 1 capsule (25 mg) by mouth 3 times a day with meals for 14 days 42 capsule 0 acetaminophen-codeine #3 (TYLENOL #3) 300-30 MG tablet Take 1 tablet by mouth Every 8 hours as needed for severe pain 30 tablet 0 budesonide (PULMICORT) 1 MG/2ML inhalation solution Nebulize one unit-dose for inhalation TWICE DAILY escitalopram (LEXAPRO) 10 mg tablet Take 10 mg by mouth 1 time per day PERFOROMIST 20 MCG/2ML inhalation solution GIVE 1 VIAL INHALATION TWICE A DAY gabapentin (NEURONTIN) 300 mg capsule TAKE 1 CAPSULE BY MOUTH THREE TIMES DAILY letrozole (FEMARA) 2.5 mg tablet Take 2.5 mg by mouth 1 time per day levalbuterol (XOPENEX HFA) 45 MCG/ACT inhaler Inhale 2 puffs by INHALATION route EVERY 4 HOURS NEEDED metoprolol succinate (TOPROL XL) 25 mg SR tablet (24 hr) TAKE 1 TABLET BY MOUTH NEEDED For TACHYCARDIA SUMAtriptan (IMITREX) 6 MG/0.5ML subcutaneous injection (auto-injector) INJECT 0.5 ML UNDER THE SKIN NEEDED. SPIRIVA RESPIMAT 1.25 MCG/ACT inhaler (Asthma) Inhale 2 puffs (1 dose) EVERY DAY traZODone (DESYREL) 50 mg tablet Take 50 mg by mouth every night at bedtime omega-3 fatty acids (FISH OIL) 1000 mg capsule Take 1 capsule every day by oral route. budesonide (PULMICORT) 0.5 mg/2 mL inhalation solution INHALE 2 vials BY MOUTH TWICE DAILY. montelukast (SINGULAIR) 10 mg tablet Take 1 tablet every day by oral route. spironolactone (ALDACTONE) 25 mg tablet Take 12.5 mg by mouth 1 time per day azelastine (ASTELIN) 137 mcg/spray nasal spray [place] 2 sprays into each nostril 1 time per day benzonatate (TESSALON) 200 MG capsule Take 200 mg by mouth 3 times a day as needed budesonide-formoterol (SYMBICORT) 160-4.5 mcg/puff inhaler Inhale 2 puffs orally 2 times a day Shake well before using. Rinse mouth after use. atorvaSTATin (LIPITOR) 20 mg tablet TAKE 1 TABLET BY MOUTH EVERY DAY. topiramate (TOPAMAX) 25 mg tablet TAKE 1 TABLET BY MOUTH IN THE MORNING AND 2 TABLETS AT BEDTIME celecoxib (CELEBREX) 400 mg capsule TAKE ONE CAPSULE BY MOUTH EVERY DAY potassium chloride (KLOR-CON M20) 20 MEQ CR tablet Take 20 mEq by mouth 3 times a day aspirin 81 mg enteric coated tablet Take 81 mg by mouth 1 time per day lansoprazole (PREVACID) 30 mg capsule Take 30 mg by mouth 1 time a day in the morning. sumatriptan (IMITREX) 100 mg tablet Take 100 mg by mouth as needed. SUMAtriptan Refill (IMITREX STATDOSE REFILL) 6 MG/0.5ML SOLN injection Inject 6 mg subcutaneously as needed. Calcium Carbonate (CALCIUM 600 PO) Take 600 mg by mouth 1 time per day. Patient is allergic to Adhesives and Prilosec [omeprazole] PAST MEDICAL & SURGICAL HISTORY Past Medical History: Diagnosis Date Anemia History of Breast cancer (HCC) Hyperlipidemia Irregular heartbeat Reflux Past Surgical History: Procedure Laterality Date BREAST RECONSTRUCTION 1996 1978; [address] Rivera COLONOSCOPY 04/10/15 very minimal colitis, mildly inflamed internal hemorrhoids; Dr. Rivera COLONOSCOPY N/A 05/06/2021 Dr. Chidi Mcwilliams - see scanned report D & C ~1975 HYSTERECTOMY MASTECTOMY BILATERAL 1996 Dr. 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 Tobacco Use Smoking status: Never Smoker Smokeless tobacco: Never Used Substance and Sexual Activity Alcohol use: No Alcohol/week: 0.0 standard drinks Drug use: No Social Determinants of Health Physical Activity: Days of Exercise per Week: Minutes of Exercise per Session: Stress: Feeling of Stress : Social Connections: Frequency of Communication with Friends and Family: Frequency of Social Gatherings with Friends and Family: Attends [employer] Services: Active Member of Clubs or Organizations: Attends Club or Organization Meetings: Marital Status: Intimate Partner Violence: Fear of Current or Ex-Partner: Emotionally Abused: Physically Abused: Sexually Abused: Financial Resource Strain: Difficulty of Paying Living Expenses: Food Insecurity: Worried About Running Out of Food in the Last Year: Ran Out of Food in the Last Year: Transportation Needs: Lack of Transportation (Medical): Lack of Transportation (Non-Medical): Suresh Regalado MD Emergency Medicine Mildred Meza RN - 08/13/2021 2:28 PM CDT Plan of care includes addressing Musculoskeletal with attention to fall. Patient denies LOC. Chief Complaint: Fall (Pt was at clinic appt. Pt ran into hitch of pickup falling to ground. Sustained radial ulnar fx/left hip fx. Arrives in c-collar. CMS intact to L hand and L leg) documented in this encounter Miscellaneous Notes Case Mgmt - Magaly Rios RN - 08/20/2021 9:23 AM CDT CASE MANAGEMENT / SOCIAL SERVICE FINAL TRANSITION PLAN TRANSITION DATE: 08/20 TRANSITION TIME: 11:00 am INTENDED PAYER SOURCE FOR AGENCY: Medicare TRANSITION DESTINATION: [facility] bed - [place], [place] DOES ACCEPTING FACILITY REQUIRE COVID TESTING BEFORE DISCHARGE: Facility does not require as patient has received both Moderna vaccines. TRANSITION TRANSPORTATION: [facility] (P:[phone]) TRANSPORTATION PAYMENT: Quoted Cost $400, CM to pay half, family to pay other half Family to Pay: [place] TRANSITION CHOICES OFFERED: Home Health: Nurse and Physical Therapy Home: Family/Friend Support Outpatient Therapy: Physical Therapy Jail Facility Swing Bed Transitional Care PATIENT / SUBSTITUTE DECISION MAKER GOAL UPON TRANSITION: First Choice: Jail Facility Transitional Care TRANSITION PLAN REVIEWED WITH AND AGREED UPON BY: Patient Spouse, [place] Bedside nurse Charge nurse PT Providers PROVIDED PATIENT / FAMILY WITH VERBAL / WRITTEN EXPLANATION OF MEDICARE OR INSURANCE COVERAGE OF GROUP HOME FACILITY Yes RESOURCE(S) PROVIDED: Placement and Transportation DOES THE PATIENT HAVE A PRIMARY CARE PHYSICIAN? Yes JELANI Abreu ANTICIPATED MODE OF TRANSPORT TO AND FROM FOLLOW UP APPOINTMENTS: Family Car VERIFIED CORRECT PHARMACY IS ENTERED FOR DISCHARGE: Reconcile medications as Patient Transfer ("65 button") METHOD OF PRESCRIBING MEDICATIONS: Reconcile medications as Patient Transfer ("65 button") PATIENT DISCUSSED IN TRANSITION ROUNDS / OUTLIER ROUNDS: Yes COMMENTS / PATIENT AND FAMILY RESPONSE TO PLAN: Discussed with interdisciplinary team. Patient has accepted a bed offer from [facility] in [place], [place]. Specialized transportation arranged. Interdisciplinary team updated. [facility]OOKE PAS completed 08/19. Your information has been submitted on August 19, 2021 at 04:16:04 PM CDT. The confirmation number is [id number] Will continue to follow providers and therapy recommendations for safe discharge planning. Will continue to reassess any discharge needs. CURRENT READMISSION RISK SCORE / HANDOFF: Predictive Risk Score Risk of Unplanned Readmission: 18.8 Handoff given: N/A SPECIAL TRANSITION DAY INSTRUCTIONS TO NURSE / MD: Discharge to swing bed. Please place interagency orders per unit policy. Bedside RN, please call report to: P: [phone] Please fax discharge information per unit policy to: F: [phone] Pharmacy: Reconcile medications as Patient Transfer ("65 button") SIGNED: Magaly Rios RN Case Manager - Orthopedics [facility] are Planning - Mildred Niño RN - 08/20/2021 6:39 AM CDT Problem: PHYSICAL COMFORT Goal: CLIENT SATISFACTION: PAIN MANAGEMENT Description: DEFINITION: Extent of positive perception of nursing care to relieve pain. 1=Not at all satisfied, 2=Somewhat satisfied, 3=Moderately satisfied, 4=Very satisfied, 5=Completely satisfied. Flowsheets (Taken 08/20/2021 0638) Plan of care reviewed with: Patient Patient specific goal for the day: Patient level tolerable at 3/10 Patient specific goal for the stay: PAain level tolrable Achieve goal for stay: By discharge Patient Progress: Patient rating pain 5-6/10 this shift. Prn Oxycodone given. Patient reports some relief following administration. Problem: RISK FOR INJURY Goal: SAFE HEALTH CARE ENVIRONMENT Description: DEFINITION: Physical and system arrangements to minimize factors that might cause physical harm or injury in the health care facility. 1 = Not adequate, 2 = Slightly adequate, 3 = Moderately adequate, 4 = Substantially adequate, 5 = Totally adequate. Flowsheets (Taken 08/20/2021 06) Plan of care reviewed with: Patient Patient specific goal for the day: Patient will be free from fall Patient specific goal for the stay: Patient will remain free from fall throughout stay Achieve goal for stay: By discharge Patient Progress: Patient free from fall. Bed rails up, call light use appropriately. Respiratory Therapy - Veronica Jaffe, MARIA E - 08/20/2021 6:26 AM CDT Patient seen this morning for her scheduled Incruse Ellipta 1 puff daily and Pulmicort nebulizer treatment BID. Saturations 96% on room air. Congested NPC. BS clear and diminished. RT to follow BID and Daily. ccupational Therapy - Rajni Merrill OTR/Ekta - 08/19/2021 2:26 PM CDT Occupational Therapy Orthopedic Progress Note Treatment Today's Treatment Self care/home management: 32 minutes Start Time: 13:35 Total for time-based codes: 32 minutes Total treatment time: 32 minutes Pt progressing towards goals Pain: Pain at rest: 4/10 Pain during activity: 4/10 Location: L hip and arm Treatment provided: Pt lightly sleeping upon arrival of OT this date but easily awoke and willing to participate. Pt states that she is willing to try anything. Began with LB dressing due to drowsiness. She completed bed mobility to sit EOB with CGA of LE. Pt completed one handed dressing techniques with donning socks with SBA and increased time. She was very willing to try car transfer. She stated that she has a pickupwith running boards. Pt stood at bedside with min A and jarred walker. Upon standing pt's knee buckledslightly multiple times. OT encouraged pt to sit and trial car transfer another day. Pt was slightlydisappointed but OT provided support and encouragement that this is the most activity and standing she has done in a while. Adaptive Equipment Recommended: OT will continue to assess AE needs and will update as necessary Plan to obtain adaptive equipment: To further assess. Assessment: Patient demonstrates decreased UE strength, decreased physical conditioning, decreased independence with ADL/IADL tasks and decreased independence with functional mobility Patient showing a decrease in ADL/transfer performance and will benefit from continued OT. Plan: Patient to be seen 3-5x/week to work toward goals listed below. Treatment plan will consist of Wednesday thru Wednesday sessions. Goals to be met by discharge: *Patient will complete UB dressing with standby assistance as a measure of increased independence with self cares. *Patient will complete LB dressing with standby assistance and AE prn as a measure of increased independence with self cares *Patient will complete toileting task with standby assistance including hygiene and clothing management as a measure of increased safety and independence with ADL. *Patient will complete functional transfers with standby assistance with AE PRN as a measure of increased independence with ADL's and mobility *Patient will tolerate sitting at sink for G/H for >5 minutes with AD as needed as a measure of increased independence *Patient will have necessary DME in place and be provided options to obtain prior to discharge Therapist pager #: [phone] ase Sandrine - Magaly Rios RN - 08/19/2021 11:50 AM CDT CASE MANAGEMENT / SOCIAL SERVICE TRANSITION PLAN - PROGRESS NOTE PLAN: goal is SNF/TCU/Swing bed BARRIERS TO TRANSITION: Awaiting Placement: Jail/Swing Bed/TCU DOES ACCEPTING FACILITY REQUIRE COVID TESTING BEFORE DISCHARGE: Patient has received Moderna vaccine x2 (12/19 and 01/16) Will be dependent on admitting facility's policy. COMMENTS / PATIENT AND FAMILY RESPONSE TO PLAN: Discussed with interdisciplinary team. Received handoff from CM team at [facility]. Awaiting placement. Patient has been profiled to the [place] and surrounding areas. First preference would be [facility] Swing Bed in [place] however they are currently full. No bed offers at this time. Will update [facility] once updates notes are available. Met with patient at bedside. She is on board with placement and prefers to be as close to [place] as well. We did discuss extending the search again. Profile extended to [place] area at patient's suggestion. IS PATIENT'S ADMISSION ASSOCIATED WITH TIA, ISCHEMIC, OR HEMORRHAGIC STROKE?: No PATIENT / SUBSTITUTE DECISION MAKER GOAL UPON TRANSITION: First Choice: Jail Facility Swing Bed Transitional Care ANTICIPATED NEEDS UPON TRANSITION: Jail Facility Swing Bed Transitional Care RESOURCE(S) PROVIDED: Placement ANTICIPATED MODE OF TRANSPORT UPON TRANSITION: To be determined based on mobility needs at time of discharge ANTICIPATED MODE OF TRANSPORT TO AND FROM FOLLOW UP APPOINTMENTS: Family Car VERIFIED CORRECT PHARMACY IS ENTERED FOR DISCHARGE: No Will update once discharge disposition is known TRANSITION ROUNDING COMPLETED WITH THE FOLLOWING: Patient / family Technical Director Attending MD ATTENDANT CAMPGROUND / PA Therapy Bedside planishing press operator RN Discussed in person SIGNED: Magaly Rios RN Case Manager - Orthopedics [facility] are Planning - Tina Nunn RN - 08/19/2021 11:38 AM CDT Problem: PHYSICAL COMFORT Goal: CLIENT SATISFACTION: PAIN MANAGEMENT Description: DEFINITION: Extent of positive perception of nursing care to relieve pain. 1=Not at all satisfied, 2=Somewhat satisfied, 3=Moderately satisfied, 4=Very satisfied, 5=Completely satisfied. Flowsheets (Taken 08/19/2021 1137) Initial Score: 3 Target Score: 4 Plan of care reviewed with: Patient Patient specific goal for the day: Patient level tolerable at 3/10 Patient specific goal for the stay: PAain level tolrable Achieve goal for stay: By discharge Patient Progress: Pt in more pain after working with PT, requesting PRN oxycodone. Tolerating well..Will continue to monitor to maintain comfort level Problem: RISK FOR INJURY Goal: SAFE HEALTH CARE ENVIRONMENT Description: DEFINITION: Physical and system arrangements to minimize factors that might cause physical harm or injury in the health care facility. 1 = Not adequate, 2 = Slightly adequate, 3 = Moderately adequate, 4 = Substantially adequate, 5 = Totally adequate. Flowsheets (Taken 08/19/2021 1139) Initial Score: 2 Target Score: 5 Plan of care reviewed with: Patient Patient specific goal for the day: Patient will be free from fall Patient specific goal for the stay: Patient will remain free from fall throughout stay Achieve goal for stay: By discharge Patient Progress: Patient free from fall. Bed rails up, call light use appropriately. Will continue to monitor hysical Therapy - Laura Pelaez, POWER HAMMER OPERATOR - 08/19/2021 11:00 AM CDT Physical Therapy Acute Inpatient Treatment Note ASSESSMENT/RECOMMENDATIONS Patient progressing well as she requires assist of 1 for bed mobility and pivot transfers to chair with support. . Recommend further skilled PT at a low intensity setting. Will continue to follow acutely and update discharge recommendations as appropriate. SUBJECTIVE Willing and agreeable to PT. 3/10 L LE pain 5/10 in L arm. OBJECTIVE Nurse present and obtained a weight from patient. Bed Mobility: Supine to sit with Joanie from elevated HOB ~ 60 degrees. Able to scoot forward and lateral along EOB with SBA. Trialing leg clinical staff educator for part of mobility Transfers: Sit to/from stand with Joanie of 1 from elevated EOB with support of hemiwalker. Gait: Patient able to ambulate x 3 feet with jarred walker and CGA/Minimal assist. Patient's Bilateral lower extremities unsteady but able to hold self. Therapeutic Exercises: Patient performed post-op hip surgery exercises on L LE x10: ankle pumps, glut sets, hip abduction/adduction, heel slides, SAQ, and SLR. Joanie to leg clinical staff educator assist for active exercises. Balance Training: Fair standing balance with jarred-walker. Other: Gait belt donned with activity. Up in chair at end of PT session with call light in reach. Patient Education: Patient was educated on goals of PT session, daily activity recommendations, and discharge recommendations today through explanation. They accepted teaching and verbalized understanding. PLAN Continue plan of care. Today's Treatment: Gait Trainin minutes Therapeutic Exercise: 15 minutes Therapeutic Activity: 15 minutes TOTAL TIMED CODES: 30 minutes TREATMENT TOTAL TIME: 30 minutes Respiratory Therapy - Colt Teran RRT - 08/19/2021 10:56 AM CDT Patient receiving Pulmicort 1 mg BID and Q day Incruse Ellipta 62.5 one puff. Patient states she has been taking Pulmicort Budesonide at home and was taking Spiriva but stopped due to high out of pocket cost. Is volume 2500 ml course cough. Breath sounds clear after deep breaths and cough. Continues on room air. Plan to follow BID and encourage IS. linical Team - Francisco Dewey RN - 08/19/2021 7:01 AM CDT Patient weight was not done. She stated she is not able to get onto the scale. Her bed cannot do weight are Planning - Francisco Dewey RN - 08/18/2021 11:12 PM CDT Problem: PHYSICAL COMFORT Goal: CLIENT SATISFACTION: PAIN MANAGEMENT Description: DEFINITION: Extent of positive perception of nursing care to relieve pain. 1=Not at all satisfied, 2=Somewhat satisfied, 3=Moderately satisfied, 4=Very satisfied, 5=Completely satisfied. Flowsheets (Taken 08/18/2021 7397) Initial Score: 3 Target Score: 5 Plan of care reviewed with: Patient Patient specific goal for the day: Patient level tolerable at 3/10 Patient specific goal for the stay: PAain level tolrable Achieve goal for stay: By discharge Patient Progress: Patient rated pain 3/10 as comfortable after medication administration. Will continue to monitor to maintain comfort level Problem: RISK FOR INJURY Goal: SAFE HEALTH CARE ENVIRONMENT Description: DEFINITION: Physical and system arrangements to minimize factors that might cause physical harm or injury in the health care facility. 1 = Not adequate, 2 = Slightly adequate, 3 = Moderately adequate, 4 = Substantially adequate, 5 = Totally adequate. Flowsheets (Taken 08/18/2021 231) Initial Score: 1 Target Score: 5 Plan of care reviewed with: Patient Patient specific goal for the day: Patient will be free from fall Patient specific goal for the stay: Patient will remain free from fall throughout stay Achieve goal for stay: By discharge Patient Progress: Patient free from fall. Bed rails up, call light use appropriately. Will continue to monitor linical Team - Catie Trujillo RN - 08/18/2021 4:32 PM CDT Patient arrived from [facility] to unit room 475 at 1600. Report not received from nurse at [facility]. VSS on RA upon arrival, see flowsheets. Four eyes on skin completed with RAMANDEEP Turner, and Kiesha, nursing internal controls specialist. Pt noted to have scattered bruising to upper and lower extremities. All other pressure points WNL. Sling and jc wrap intact to RUE. Pt is AOx4. Orientated to call light, room, pain scale, diet, and phone. Pt verbalized understanding; aware of limitations at this time. Denies chest pain/SOB and pain at this time. Awaiting placement.Will monitor. hysical Therapy - Elton Atkins PT - 08/18/2021 11:32 AM CDT Physical Therapy Acute Inpatient Treatment Note ASSESSMENT/RECOMMENDATIONS Patient progressing well as she requires assist of 1 for bed mobility and pivot transfers to chair with support. Increased lightheadedness with upright activity today. Recommend further skilled PT at a low intensity setting. Will continue to follow acutely and update discharge recommendations as appropriate. 6-Clicks Basic Mobility Score: 14 Activity Prescription with Nursing: Assist patient to chair 3 times per day for 30 to 60 minutes or for all meals. Use Axof 1-2 and hemiwalker Assist patient to complete exercises 10 times, 3 times per day (in sitting): air boxing, lift arms above head, straighten knees, marching. Encourage patients to do personal cares when sitting up. Use bathroom or commode rather than bedpan. SUBJECTIVE Willing and agreeable to PT. Spouse present. 3/10 L LE pain. Alert and oriented x4. OBJECTIVE Bed Mobility: Supine to sit with Joanie from elevated HOB ~ 90 degrees. Able to scoot forward and lateral along EOB with SBA. Transfers: Sit to/from stand with Min-ModA of 1 from elevated EOB with support of hemiwalker. Cues for technique. Pivoted from EOB to chair with Joanie of 1 and jarred-walker. Gait: Lateral weight shifts and L LE forward/backward toe taps with jarred walker and CGA. Therapeutic Exercises: Patient performed post-op hip surgery exercises on L LE x15: ankle pumps, glute sets, hip abduction/adduction, heel slides, SAQ, and SLR. Joanie for active exercises. Balance Training: Fair standing balance with jarred-walker. Response to Activity: Vitals: BP 105/81 sitting EOB Other: Gait belt donned with activity. Up in chair at end of PT session with call light in reach. Patient Education: Patient was educated on goals of PT session, daily activity recommendations, and discharge recommendations today through explanation. They accepted teaching and verbalized understanding. Interdisciplinary Communication: Spoke with interdisciplinary team members regarding patient plan ofcare. PLAN Continue plan of care. Today's Treatment: Gait Trainin minutes Therapeutic Exercise: 15 minutes Therapeutic Activity: 23 minutes TOTAL TIMED CODES: 38 minutes TREATMENT TOTAL TIME: 38 minutes Elton Atkins PT, DPT Alpha Pager: [phone] [phone] Sandrine - Estefanía Bates RN - 08/18/2021 9:49 AM CDT CASE MANAGEMENT / SOCIAL SERVICE TRANSITION PLAN - PROGRESS NOTE PLAN: Awaiting Medical Doctor Recommendations for Transition Will Continue to Follow for Support and Progression Towards Final Transition Plan BARRIERS TO TRANSITION: Awaiting Placement: Jail/Swing Bed/TCU Medical barriers:Pain control, PT/OT DOES ACCEPTING FACILITY REQUIRE COVID TESTING BEFORE DISCHARGE: Other: TBD COMMENTS / PATIENT AND FAMILY RESPONSE TO PLAN: Pt was reviewed with the IM team this morning. PT/OT recommending low intensity placement at discharge. Met with pt at bedside this morning to discuss discharge planning options. Pt is agreeable to short term placement. Her first preference would be the [facility] in [place]. Profiled pt via [employer] to a 20 mile radius of [place] (excluding [place] per pt request). Pt was made aware of possible [facility] transfer today and verbalized understanding. Placement Updates: [facility]--Called and left a message for Lucina in [facility] to determine bed availability. Call back requested. Received a call back this afternoon from Lucina. Their beds are tight but she may have an opening in the next day or two. [facility]--Left a message for Katelyn in admissions to determine bed availability. Requested call back. [facility]--Unable to accept due to staffing shortage Expanded profile to 35 mile radius of [place] this afternoon. CM will continue to follow for transition planning. IS PATIENT'S ADMISSION ASSOCIATED WITH TIA, ISCHEMIC, OR HEMORRHAGIC STROKE?: No PATIENT / SUBSTITUTE DECISION MAKER GOAL UPON TRANSITION: First Choice: Swing Bed ANTICIPATED NEEDS UPON TRANSITION: Jail Facility Swing Bed RESOURCE(S) PROVIDED: nothing needed at this time VERIFIED CORRECT PHARMACY IS ENTERED FOR DISCHARGE: No - TBD pending final DC plan TRANSITION ROUNDING COMPLETED WITH THE FOLLOWING: Patient / family Technical Director Attending Residents Discussed in person SIGNED: JARVIS Carey, hand nailer [facility] Office (): [phone] [facility] (): [phone] Pager #[phone] OCN / Skin Team - Jane Carson RN - 08/18/2021 8:36 AM CDT Wound Care Nurse Consult: Indication for consult: Consult received for low Ezra Scale score of 14. Assessment: No areas of pressure related skin breakdown noted per nursing documentation Recommendations/Plan: Initiate pressure relief interventions based on risk: Turn and reposition every 2 hours-use TAPS Monitor under and around all medical devices Prevalon boots while in bed Limit layers under patient to flat sheet and incontinence product only Interdry AG to skin folds for moisture management, change prn Check for incontinence every 2 hours Protective ointment to sammi-area daily and after each incontinent episode Head of bed 30 degrees or less as tolerated Mepilex border to sacrum, change every 5 days and prn Discontinue use of sacral mepilex if unable to keep clean/dry/intact due to incontinence or if trapping moisture. internal affairs commander to sign off. Please re-consult prn. Juice Munoz RN - 08/18/2021 1:01 AM CDT Problem: PHYSICAL COMFORT Goal: CLIENT SATISFACTION: PAIN MANAGEMENT Description: DEFINITION: Extent of positive perception of nursing care to relieve pain. 1=Not at all satisfied, 2=Somewhat satisfied, 3=Moderately satisfied, 4=Very satisfied, 5=Completely satisfied. Outcome: NOC Rating 3 Flowsheets (Taken 08/18/2021 0051) Initial Score: 3 Target Score: 5 Patient specific goal for the day: Patient will continue mobility and remain under a 3/10 pain with PRN 2.5mg oxy. Patient specific goal for the stay: Patient will return to baseline Patient Progress: Patient given 1- 2.5mg oxy. Able to get up to commode 1x with minimal assist. Scdsplaced back on. Mare Stinson RN - 08/17/2021 6:26 PM CDT Problem: PHYSICAL COMFORT Goal: CLIENT SATISFACTION: PAIN MANAGEMENT Description: DEFINITION: Extent of positive perception of nursing care to relieve pain. 1=Not at all satisfied, 2=Somewhat satisfied, 3=Moderately satisfied, 4=Very satisfied, 5=Completely satisfied. Outcome: NOC Rating 4 Flowsheets (Taken 08/17/2021 7394) Plan of care reviewed with: Patient Patient specific goal for the day: Patient will control pain with 2.5 mg oxy and nonpharmacological techniques. Patient specific goal for the stay: Patient will manage pain with oral pain medications. Achieve goal for stay: By discharge Patient Progress: PRN 2.5 mg oxy givenx1. Patient up to comode with minimal pain. Dressing changed and pt tolerated well. Oral intake adequate. hysical Therapy - Anupama Saini, PT - 08/17/2021 4:04 PM CDT Physical Therapy Acute Inpatient Treatment Note ASSESSMENT/RECOMMENDATIONS Patient demonstrated ability to move in bed and stand with assist of 1 using hemiwalker. She continues to be limited by pain in her L UE and L hip, gross weakness, and decreased endurance and activity tolerance. Patient will benefit from ongoing PT in acute setting to address these deficits, at this time would benefit from low intensity setting at discharge. 6-Clicks Basic Mobility Score: 11 Activity Prescription with Nursing: Assist patient to chair 3 times per day for 30 to 60 minutes or for all meals. Use Ax1-2 and hemiwalker. Encourage patients to do personal cares when sitting up. Use bathroom or commode rather than bedpan. SUBJECTIVE Patient reported mild to moderate pain in her L elbow, mild pain in L hip. She reports feeling weak and somewhat lightheaded with standing. OBJECTIVE Precautions: L UE in sling, NWB; L LE WBAT Patient on 2 L O2 via NC. Bed Mobility: Supine to/from sit with mod-max A, HOB elevated, use of bed rail Transfers: Sit to/from stand with min-mod A and bed height elevated, up to hemiwalker; cues for safe hand placement Gait: 1 sidestep to R with hemiwalker and min A, plus cues for technique Stairs: - Therapeutic Exercises: Supine L LE exercises including ankle pumps, heel slides, hip abd/add, quad sets, hamstring sets, SAQ, and gluteal sets all x 10 actively Balance Training: Static standing 3-4 minutes with hemiwalker, weight-shifting side to side all with CG-Joanie Response to Activity: Modified Sharon RPE: moderate Observation: no change from baseline Other: Patient returned supine at end of session, call light in reach, bed alarm activated, L arm and leg elevated on pillows. Patient Education: Patient was educated on goals of PT session, daily activity recommendations, and increasing activity tolerance, PT plan of care, site of fractures today through explanation and demonstration. They accepted teaching and verbalized understanding and demonstrated understanding. Interdisciplinary Communication: Spoke with interdisciplinary team members regarding patient plan ofcare. PLAN Continue plan of care. Today's Treatment: Gait Trainin minutes Therapeutic Exercise: 16 minutes Therapeutic Activity: 23 minutes TOTAL TIMED CODES: 39 minutes TREATMENT TOTAL TIME: 39 minutes Anupama Saini PT, DPT Pager #: [phone] espiratory Therapy - Kelly Napoles RRT - 08/17/2021 9:22 AM CDT Patient continues to receive Incruse one inhalation once per day and pulmicort neb twice per day. Her SpO2 was lower this morning so increased her oxygen to 2 L, SpO2 92% She is more congested this morning and is coughing but is not bring up anything. IS 1250 ml. Strong cough after neb. Breath sounds much improved. linical Team - Juice Hicks RN - 08/17/2021 1:59 AM CDT Patient stated she has history of trouble urinating after anesthesia. 2nd bladder scan showed 410 ml. Straight cath for 400 ml. Post void cath was 35 ml. are Planning - Juice Hicks RN - 08/16/2021 11:14 PM CDT Problem: PHYSICAL COMFORT Goal: CLIENT SATISFACTION: PAIN MANAGEMENT Description: DEFINITION: Extent of positive perception of nursing care to relieve pain. 1=Not at all satisfied, 2=Somewhat satisfied, 3=Moderately satisfied, 4=Very satisfied, 5=Completely satisfied. Outcome: NOC Rating 3 Flowsheets (Taken 08/16/2021 4516) Initial Score: 3 Plan of care reviewed with: Patient Patient specific goal for the day: patient pain will be managed with 2.5mg oxy and alternative therapies Patient specific goal for the stay: Patient pain will return to baseline Patient Progress: Patient has had 2.5mg oxy 1x. SCDS started. position changes have kept pain at a tolerated level. Patient worries about getting addicted to oxy, but is okay with 2.5mg. linical Team - Mare Murillo RN - 08/16/2021 6:03 PM CDT Upon Transfer to [facility], skin assessment completed with Estefanía Grossman RN. Upon skin assessment including pressure points findings include: Scattered bruising to BLE and rightarm, clean dry and intact dressing on right hip and right arm, blanchable redness to bilateral heels, all other pressure points WDL. are Planning - Mare Murillo RN - 08/16/2021 3:51 PM CDT Problem: RISK FOR INJURY Goal: SAFE HEALTH CARE ENVIRONMENT Description: DEFINITION: Physical and system arrangements to minimize factors that might cause physical harm or injury in the health care facility. 1 = Not adequate, 2 = Slightly adequate, 3 = Moderately adequate, 4 = Substantially adequate, 5 = Totally adequate. Outcome: NOC Rating 5 Flowsheets (Taken 08/16/2021 1549) Plan of care reviewed with: Patient Patient specific goal for the day: Patient will maintain stable mood throughout shift and be compliant with cares Patient specific goal for the stay: Patient will return to baseline cognition. Achieve goal for stay: By discharge Patient Progress: Patient has returned to baseline cognition. PRN oxy 2.5 mg was given to assist in pain of surgical sites. Pt reported that it was successful. Oxy caused no alteration in LOC. ccupational Therapy - Danna Helms OTR/Ekta - 08/16/2021 1:48 PM CDT Occupational Therapy Acute Care Evaluation Note Impression/Recommendations Recommending low intensity setting upon medical stability. Pt stated she is hopeful for low as she required increased assistance during session. Patient is presenting with impairments including decreased (I) with ADLs/transfers, endurance, and strength. Patient is demonstrating ability to complete ADLs /transfers with assist of 1-2. Patient will continue to benefit from skilled OT in order to address the above deficits to increase functional independence in ADLs, IADLs, and transfers/mobility. Admitting Diagnosis: ICD-10-CM 1. Fall, initial encounter W19.XXXA 2. Left displaced femoral neck fracture ([facility]) S72.002A Weight bearing status - as tolerated PHYSICAL THERAPY EVALUATION AND TREATMENT 3. Closed displaced fracture of neck of left radius, initial encounter S52.132A Weight bearing status - non-weight bearing 4. Closed fracture of proximal end of left ulna, unspecified fracture morphology, initial [id number] Weight bearing status - non-weight bearing 5. Hip fracture ([facility]) S72.009A TISSUE EXAM History of Present Illness: Refer to H&P for details Past Medical History: Past Medical History: Diagnosis Date Anemia History of Breast cancer ([facility]) Hyperlipidemia Irregular heartbeat Reflux Activity Level: Progressive mobility bundle, activity as tolerated Precautions: Fall Risk, Pressure ulcer risk, WBAT LUE (okay for jarred walker) and NWB LLE Infection Control: Standard Precautions Patient History Social/Home Environment: Patient lives: with their and son House: House Steps to enter: Yes- 3 stairs Home Environment: Bed/Bath on main level: Yes Bathroom Setup: walk in shower with door 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 Comments: Pt stated she is hopeful for low intensity as she doesn't feel family is able to give level of care needed at this time and she "does not want to feel like a burden." Adaptive Equipment Available: front-wheeled walker, cane and crutches Present for Eval: Patient Objective Activities of Daily Living: Feeding: to be assessed Grooming: to be assessed Upper Extremity Dressing: Pt required maxA to don/doff sling. Lower Extremity Dressing: Pt required maxA to adjust B socks while seated in chair. Bathing: to be assessed Toileting: to be assessed Homemaking: to be assessed Comments: OT educated on NWB LUE precautions. Pt verbalized understanding. Transfers: Bed: Pt completed stand>sit with maxA of 2. Pt completed seated EOB>supine with modA of 2. Chair: Pt completed sit>stand using FWW with maxA of 2. Pt required 3 attempted to be able to stand on this date. Toilet: to be assessed Tub/Shower: to be assessed Mobility/Ambulation: Pt completed SPT from chair>bed going to R side with maxA holding on to therapist for support. Gait belt and gripper socks donned during all out of bed activity. At end of session: patient resting in bed, call light and tray table within reach and RN present at end of session and taking over pt care Pain: Pain at rest: 4/10 Pain during activity: 8/10 Location: RUE. At end of session pt laying comfortably in bed with RN present aware of pain level. Vitals: Pt on 1L without signs of shortness of breath during OT. SpO2 at rest >90 %, SpO2 with activity >90% Upper Extremity Function: Range of Motion: Right:limited Left: within functional limits Strength: Right: limited Left: within functional limits Endurance: limited Coordination: intact Sensation: intact Edema: No Dominant Hand: right Comments: Not formally assessed for LUE due to NWB precautions. . Cognition: Orientation: alert. Oriented to: Name, , Month, Day of Week, Date and Year Attention: intact Following Directions: intact Safety Awareness: intact Impulsivity: Mild Comments: Pt pleasant in conversation. Visual/Perception: Glasses: Yes Neglect: No Field Cut: No Comments: Pt able to accurately state how many figures OT was holding up in all planes. Interdisciplinary Communication: Nurse Education Education/Training provided: Role of OT, plan of care, ADLs, transfers/mobility, safety, AE needs,d/c recommendations Learners: Patient Readiness: accepting Method of Training: verbal Response: Verbalizes understanding; Will benefit from continued reinforcement: yes Adaptive Equipment Recommendations Adaptive Equipment Recommended: OT will continue to assess AE needs and will update as necessary Plan to obtain adaptive equipment: To further assess. Assessment/Plan Assessment: Patient demonstrates decreased UE strength, decreased physical conditioning, decreased independence with ADL/IADL tasks and decreased independence with functional mobility Patient showing a decrease in ADL/transfer performance and will benefit from continued OT. Plan: Patient to be seen 3-5x/week to work toward goals listed below. Treatment plan will consist of Wednesday thru Wednesday sessions. Goals Patient/Family Stated Goal for Session: agreeable to therapy evaluation, RN agreeable Goals to be met by discharge: *Patient will complete UB dressing with standby assistance as a measure of increased independence with self cares. *Patient will complete LB dressing with standby assistance and AE prn as a measure of increased independence with self cares *Patient will complete toileting task with standby assistance including hygiene and clothing management as a measure of increased safety and independence with ADL. *Patient will complete functional transfers with standby assistance with AE PRN as a measure of increased independence with ADL's and mobility *Patient will tolerate sitting at sink for G/H for >5 minutes with AD as needed as a measure of increased independence *Patient will have necessary DME in place and be provided options to obtain prior to discharge Treatment Provided See above note Charges Treatment/Minutes: Today's Evaluation/Treatment Evaluation Self care/home management: 10 minutes Total for time-based codes: 10 minutes Total treatment time: 20 minutes Evaluation Complexity PMH/Comorbidities that affect Occupational Performance: See PMHx Occupational Profile/Medical and Therapy History: LOW - Brief history relating to presenting problem Patient Assessment: LOW - 1-3 performance deficits relating to physical, cognitive, psychosocial limitations/restrictions Clinical Decision Making: LOW - Low complexity, limited amount of treatment options, no assessment modification, no comorbidities Evaluation Complexity: Low Therapist Alpha Pager Number: [phone] hysical Therapy - Kiera Steele, PT - 08/16/2021 10:31 AM CDT Physical Therapy Acute Inpatient Initial Evaluation RECOMMENDATIONS Assessment: Pt limited by pain and limited WB status of L UE and LE. Max assist of 2 for bed mobility today, and mod assist of 2 for stand pivot to chair (toward good leg). At this point point would need placement, but hopeful she will progress in the next 2-3 days - might potentially progress to return home at w/c level. PT will follow and update. 6-Clicks Basic Mobility Score: 11 Activity Prescription with Nursing: Assist patient to chair 3 times per day for 30 to 60 minutes or for all meals. Use Ax1-2 Assist patient to complete exercises 10 times, 3 times per day (in sitting): air boxing, lift arms above head, straighten knees, marching. Encourage patients to do personal cares when sitting up. Use bathroom or commode rather than bedpan. Anticipated D/C Service needs: HHPT or Low intensity setting - depending on progress. Diagnosis: ICD-10-CM 1. Fall, initial encounter W19.XXXA 2. Left displaced femoral neck fracture ([facility]) S72.002A Weight bearing status - as tolerated PHYSICAL THERAPY EVALUATION AND TREATMENT 3. Closed displaced fracture of neck of left radius, initial encounter S52.132A Weight bearing status - non-weight bearing 4. Closed fracture of proximal end of left ulna, unspecified fracture morphology, initial [id number] Weight bearing status - non-weight bearing 5. Hip fracture ([facility]) S72.009A TISSUE EXAM Prescription: Eval and Treat Admit Date: 08/13/2021 Pertinent Medical / Surgical History: Past Medical History: Diagnosis Date Anemia History of Breast cancer (HCC) Hyperlipidemia Irregular heartbeat Reflux Past Surgical History: Procedure Laterality Date BREAST RECONSTRUCTION 1996 1978; [address] Rivera COLONOSCOPY 04/10/15 very minimal colitis, mildly inflamed internal hemorrhoids; Dr. Rivera COLONOSCOPY N/A 05/06/2021 Dr. Chidi Mcwilliams - see scanned report D & C ~1976 HYSTERECTOMY MASTECTOMY BILATERAL 1996 Dr. Goodwin Current medical status: Admit after fall - fxs of LUE, fx of LLE. S/p surgical intervention. Activity Orders: Activity as tolerated, Progressive Mobility Bundle, Precautions: NWB LUE. WBAT LLE - with caution?- okay to use hemiwalker. SUBJECTIVE Current Living Situation: Lives with spouse and with son in House with 3 steps to enter with 1 rail(s) and 0 steps to bed/bathwith no rail(s) [place] [facility]. Home environment: house Prior Level of Function: Fully independent with ADLs, driving, and mobility without AD Activities of Daily Living: independent Mobility: independent no AD Employment: retired History of falls: Yes - fell in kitchen one day - was weak from cancer treatment. This fall was in a parking lot Home O2: no Adaptive equipment available: Irving SORIANO cruthes Patient Concerns: Just feeling anxious Patient/Family Goals: Be able to move enough to return home as soon as possible. OBJECTIVE Observation: L arm thickly bandaged. Leaning heavily to the R side in bed. L hip incision covered- CDI. Pt alert and cooperative. No further delirium/agitation noted Patient seen at bedside. Patient presents with on 1.5 L O2 in bed Gait belt applied prior to out of bed activity. Vitals: WFL. After activity O2sat down to 89% - redonned O2 (as removed it for transfer - okay with RN) Cognition: Alert and orientated x4 Pain: 6/10 - arm worse than leg at rest. Leg worse with transfer. Posture: Leans R in bed and in sitting Range of Motion: Bilateral lower extremities WFL Refer to Occupational Therapy report for upper extremity range of motion. Strength: RLE and RUE WFL. LLE and LUE not tested due to injuries Refer to Occupational Therapy report for upper extremity strength testing. Sensation: Grossly intact bilaterally. Tone: Normal. Transfers: Bed mobility: maximal assistance Of 2 Supine to Sit: maximal assistance Of 2 Sit to Supine: not assessed Sit to/from Stand: moderate assistance Of 2 Stand Pivot: moderate assistance Of 2 Comments: Set up transfer to chair well - chair on R side.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 2. Open reduction with internal fixation of left olecranon fracture with plate and screw construct. 3. Left radial head replacement for fracture. 4. Application of left arm long-arm splint. IMPLANTS USED: Synthes FNS, 1-hole plate, 85-mm bolt, and anti-rotational screw and 1 distal interlocking screw. For the radial head, we used a 25-mm head with a 7.3-mm stem and the +3 offset. For the olecranon, we used a 6-hole olecranon plate with 2.7-mm locking screws and 3.5-mm cortical screws. ANESTHESIA: General. BLOOD LOSS: 100 mL. COMPLICATIONS: None. SPECIMEN SENT: None. INDICATIONS FOR PROCEDURE: This is a 66-year-old female who presented to [facility] after a fall, complaining of left elbow pain and left hip pain. She required medical optimization. Discussed with her treatment options, both operative and nonoperative treatment. She elected to proceed with operative intervention. We discussed the risks of surgery. Risks include bleeding, pain, infection, injury to arteries, veins, nerves, reoperation, hardware failure, loss of life or limb.The patient understands all of these risks. All questions answered. Consent was obtained. DETAILS OF PROCEDURE: The patient was brought to the operating suite, and general endotracheal anesthesia was administered by the anesthesiologist, as well as preoperative antibiotics. The patient was then positioned on the [place] table in bilateral spurs. X-rays were obtained of the hip, AP and lateral, that showed satisfactory reduction of the fracture. Left hip and leg were then prepped and draped in the usual sterile fashion. Final time-out was performed to verify this was the correct patient, as well as correct operative site, that being the left hip. Everyone was in agreement, and procedure was begun. The small incision was made over the lateral aspect of the femur. Aiming guide for the femoral neck system was then positioned in the lateral femoral cortex. The wire was then advanced in the neck and head of the femur, verified to be in appropriate position on AP and lateral x-ray. It was measured to be 85 mm. Triple reamer was then passed over the wire followed by a 1-hole plate with an 85-mm bolt, and then we drilled and placed an 85-mm anti-rotational screw and then 1 distal interlocking screw. Aiming guide was removed. Final x-rays were obtained, AP and lateral of the hip, that showed anatomic reduction of the fracture and good position of the hardware. Wounds were then irrigated with copious amounts of irrigation and closed in a layered fashion. Sterile dressings were applied. We then transferred the patient to her hospital bed and then to the [place] bed prone. The left arm was then prepped and draped in the usual sterile fashion. A second time-out was performed to verify this was the correct patient, as well as correct operative site, that being the left elbow. Everyone was in agreement, and procedure was begun. We did apply a sterile tourniquet. The arm wasexsanguinated and tourniquet elevated. A standard posterior approach to the elbow was performed. Incision was made. Dissection was taken down to the fracture. The olecranon fracture was cleaned of hematoma. We were then able to elevate the olecranon fracture proximally and visualize the radial head. There was complete fracture of the radial head from the radial shaft. The head was then excised, measured. We then prepared the radial shaft for the radial head replacement trial. We reamed the canal. Trial components were placed, that being a 25-mm head with a 7.5-mm stem and +3 offset. X-rays were obtained, AP and lateral, that showed good position of the radial head replacement. Trial components were removed. Final components were then placed. We then performed open reduction with internal fixation of the olecranon with plate and screw construct. Pointed reduction forceps were utilized followed by a plate and screws were placed. It was a 6-hole olecranon plate. We drilled and placed three 3.5-mm cortical screws distal to the fracture and then 2.7-mm locking screws proximal to thefracture. At this time, final x-rays were obtained, AP and lateral of the elbow, that showed satisfactory reduction of the fracture and good position of the hardware. Stability of the elbow was assess ed with varus and valgus stress and found to be stable at this time, and we did visualize the ulnar nerve during this procedure and protected it throughout the case. At this time, wounds were irrigated with copious amounts of irrigation and closed in a layered fashion. Sterile dressings were applied, as well as a well-padded posterior splint. The patient was awoken and taken in stable condition tothe postanesthesia care unit. She will receive 24 hours of IV antibiotics, mechanical and chemical DVT prophylaxis, be nonweightbearing on the left upper extremity, weightbear as tolerated on the leftlower extremity. Follow up in 2 weeks and 6 weeks. 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 1=Not at all satisfied, 2=Somewhat satisfied, 3=Moderately satisfied, 4=Very satisfied, 5=Completely satisfied. Flowsheets (Taken 08/14/2021 000) Initial Score: 3 Target Score: 5 Plan of care reviewed with: Patient Patient specific goal for the day: Patient's pain will be controlled with PRN pain medications Patient specific goal for the stay: patient's pain will return to baseline Achieve goal for stay: By discharge Patient Progress: patient admitted from ED after a fall from which she sustained fx to left hip and forearm. c/o pain upon admission. PRN dilaudid given with adequate relief. patient currently on tele for ventricular bigeminy. patient bradycardic. will continue to monitor VS and pain apid Response - Latrell Holt RN - 08/13/2021 9:00 PM CDT ICU Nurse Consult Date of Call: 08/13/21 Time ICU Nurse Consult Called: 2020 Location: [facility] 823 C: Full. S / Reason for Activating: Cardiac: Bradycardia Other: MEWS B: Pt admitted s/p fall resulting in radial/ulnar fx and L hip fx. PMH significant for GERD, obstructive lung disease, HLD, hx malignant neoplasm of breast s/p b/l mastectomy, CAD, and cervical spinal stenosis. A: Pt AOx4, bradycardic per bedside monitor, otherwise VSS upon arrival. Bedside RN reporting new onset bradycardia. Mechanical assessment appeared that pulse was higher than bedside monitor. 12 lead EKG performed per order in place showing ventricular bigeminy. Pt asymptomatic. R / Patient Disposition: Maintains in current room. updated and order received for telemetry at this time. Provider Name and Time Notified: Dr. Regan. Family or Civil Laboratory Technician notified: No. Additional Comments: Please call w/ any additional questions or concerns and/or if pt becomes symptomatic. harmacclare - Earl Castellanos, LACEY D - 08/13/2021 6:48 PM CDT 08/13/2021 6:48 PM CDT Patient was seen by pharmacy for medication reconciliation. Home medications have been reconciled and updated on the home medications list to match the patient's home usage. Medications Deleted: None Medications Added: None Medications Changed: Indomethacin 25 mg capsule - not taking Gabapentin 300 mg capsule - changed to 1 AM and 2 PM Metoprolol succinate 25 mg tablet - changed to 0.5 tablet daily Sumatriptan 100 mg tablet - changed to 1 tablet AM and 2 tablets PM Potassium chloride 20 mEq CR tablet - changed to 1 tablet AM and 2 tablets PM Additional information: -Patient reports she is out of spiriva and almost out of symbicort. She is not refilling these because they not covered by her medicare -Waiting to start Performist after her inhalers run out Patient denies use of other inhalers, creams/ointments, eye/ear drops, patches or injectables, OTCs,vitamins and/or herbal products. Prior to Admission Medications Prescriptions Last Dose Informant Patient Reported? Taking? PERFOROMIST 20 MCG/2ML inhalation solution at Not started yet Self Yes No Sig: GIVE 1 VIAL INHALATION TWICE A DAY SPIRIVA RESPIMAT 1.25 MCG/ACT inhaler (Asthma) Past Week at Unknown time Self Yes Yes Sig: Inhale 2 puffs (1 dose) EVERY DAY SUMAtriptan (IMITREX) 6 MG/0.5ML subcutaneous injection (auto-injector) Greater than 1 Month at Unknown time Self Yes Yes Sig: INJECT 0.5 ML UNDER THE SKIN NEEDED. SUMAtriptan Refill (IMITREX STATDOSE REFILL) 6 MG/0.5ML SOLN injection Self Yes No Sig: Inject 6 mg subcutaneously as needed. acetaminophen-codeine #3 (TYLENOL #3) 300-30 MG tablet Past Month at Unknown time Self Yes Yes Sig: Take 1 tablet by mouth Every 8 hours as needed for severe pain aspirin 81 mg enteric coated tablet 08/13/2021 at am Self Yes Yes Sig: Take 81 mg by mouth 1 time per day atorvaSTATin (LIPITOR) 20 mg tablet 08/13/2021 at am Self Yes Yes Sig: TAKE 1 TABLET BY MOUTH EVERY DAY. azelastine (ASTELIN) 137 mcg/spray nasal spray 08/13/2021 at am Self Yes Yes Sig: [place] 2 sprays into each nostril 1 time per day benzonatate (TESSALON) 200 MG capsule 08/12/2021 at Unknown time Self Yes Yes Sig: Take 200 mg by mouth 3 times a day as needed budesonide (PULMICORT) 0.5 mg/2 mL inhalation solution 08/13/2021 at am Self Yes Yes Sig: INHALE 2 vials BY MOUTH TWICE DAILY. budesonide (PULMICORT) 1 MG/2ML inhalation solution Self Yes No Sig: Nebulize one unit-dose for inhalation TWICE DAILY budesonide-formoterol (SYMBICORT) 160-4.5 mcg/puff inhaler 08/13/2021 at am Self Yes Yes Sig: Inhale 2 puffs orally 2 times a day Shake well before using. Rinse mouth after use. calcium carbonate 600 mg tablet 08/13/2021 at am Self Yes Yes Sig: Take 600 mg by mouth 1 time per day celecoxib (CELEBREX) 400 mg capsule 08/13/2021 at am Self Yes Yes Sig: TAKE ONE CAPSULE BY MOUTH EVERY DAY escitalopram (LEXAPRO) 10 mg tablet 08/13/2021 at am Self Yes Yes Sig: Take 10 mg by mouth 1 time per day gabapentin (NEURONTIN) 300 mg capsule 08/13/2021 at am Self Yes Yes Sig: Take 1 capsule (300 mg) in the morning and 2 capsules (600 mg) with dinner indomethacin (INDOCIN) 25 mg capsule Not Taking at Unknown time No No Sig: Take 1 capsule (25 mg) by mouth 3 times a day with meals for 14 days Patient not taking: Reported on 08/13/2021 lansoprazole (PREVACID) 30 mg capsule 08/13/2021 at am Self Yes Yes Sig: Take 30 mg by mouth 1 time a day in the morning. letrozole (FEMARA) 2.5 mg tablet 08/13/2021 at am Self Yes Yes Sig: Take 2.5 mg by mouth 1 time per day levalbuterol (XOPENEX HFA) 45 MCG/ACT inhaler Past Month at Unknown time Self Yes Yes Sig: Inhale 2 puffs by INHALATION route EVERY 4 HOURS NEEDED levothyroxine 25 mcg tablet 08/12/2021 at pm Self Yes Yes Sig: Take 25 mcg by mouth 1 time per day metoprolol succinate (TOPROL XL) 25 mg SR tablet (24 hr) 08/13/2021 at am Self Yes Yes Sig: Take 12.5 mg by mouth 1 time per day montelukast (SINGULAIR) 10 mg tablet 08/13/2021 at am Self Yes Yes Sig: Take 1 tablet every day by oral route. omega-3 fatty acids (FISH OIL) 1000 mg capsule 08/13/2021 at am Self Yes Yes Sig: Take 1 capsule every day by oral route. potassium chloride (KLOR-CON M20) 20 MEQ CR tablet 08/12/2021 at pm Self Yes Yes Sig: Take 1 tablet (20 mEq) in the morning and 2 tablets (40 mEq) in the evening spironolactone (ALDACTONE) 25 mg tablet 08/13/2021 at am Self Yes Yes Sig: Take 12.5 mg by mouth 1 time per day sumatriptan (IMITREX) 100 mg tablet 08/13/2021 at am Self Yes Yes Sig: Take 1 tablet (100 mg) in the morning and 2 tablets (200 mg) at bedtime topiramate (TOPAMAX) 25 mg tablet 08/13/2021 at am Self Yes Yes Sig: TAKE 1 TABLET BY MOUTH IN THE MORNING AND 2 TABLETS AT BEDTIME traZODone (DESYREL) 50 mg tablet 08/12/2021 at pm Self Yes Yes Sig: Take 50 mg by mouth every night at bedtime Facility-Administered Medications: None LACEY Bolton D documented in this encounter Plan of Treatment Date Type Specialty Care Team Description 08/26/2021 Office Visit Orthopedics Sourav Levin, GISSELLE [facility] [place], [place] [address] [phone] 09/23/2021 Office Visit Orthopedics Mildred Zhu PA-C [address] [place] [address] [place] [address] [phone] 09/23/2021 Office Visit Orthopedics Catarino Christensen MD [address] [place] [address] [place] [address] [phone] Name Type Priority Associated Diagnoses Date/Ti me SPLINT APPLICATION Procedures Routine 1 5:22 PM CDT TISSUE EXAM PATH Routine Hip fracture ([facility]) 1 5:57 PM CDT Name Type Priority Associated Diagnoses Order S chedule TISSUE EXAM PATH Routine Hip fracture ([facility]) Release U yinka Ordering for 1 Occurrences s tarting 08/14/2021 RENAL FUNCTION PANEL Lab Routine Early A M draw for labs until discontin ued starting 2020, 5 completed COMPLETE BLOOD COUNT Lab Routine Early A M draw for labs WITHOUT DIFFERENTIAL until d iscontinued starting 2020, 5 completed MAGNESIUM Lab Routine Early AM draw f or labs until discontin ued starting 2020, 5 completed documented as of this encounter Implants Implanted Type Area Underground Production Foreperson Device Shelf Model / Identifier Expiration Serial / Date Lot Screw Va Lk T8 Star 2.7x30mm N Ea1 - [id number] Ortho Left: J&J DEPUY / Implanted: Qty: 1 on 08/14/2021 by Catarino Christensen MD at [facility] Other ELBOW SYNTHES / Boelus Fem Neck Ster 85mm N 04.168.285s Ea1 - [id number] Ortho Left: HIP J&J DEPUY 04/21/2031 04.168.285S / Implanted: Qty: 1 on 08/14/2021 by Catarino Christensen MD at [facility] Other SYNTHES / [id number] Plate Olec Lft 6hl 142mm N 107.306 Ea1 - [id number] Ortho Left: J&J DEPUY 306 / Implanted: Qty: 1 on 08/14/2021 by Catarino Christensen MD at [facility] Other ELBOW SYNTHES / Screw Metaphyseal Synt2.7x20mm N 02118.520 Ea1 - [id number] Ort ho Left: J&J DEPUY 520 / Implanted: Qty: 1 on 08/14/2021 by Catarino Christensen MD at [facility] Other ELBOW SYNTHES / Screw Jak Slftp Hex 2.7x26mm N 202.826 Ea1 - [id number] Ortho L eft: J&J DEPUY 202.826 / Implanted: Qty: 1 on 08/14/2021 by Catarino Christensen MD at [facility] Other ELBOW SYNTHES / Screw Jak Slftp 3.5x20mm N 204.820 Ea1 - [id number] Ortho Left: J&J DEPUY 204.820 / Implanted: Qty: 1 on 08/14/2021 by Catarino Christensen MD at [facility] Other ELBOW SYN[employer]ES / Screw Jak Slftp 3.5x22mm N 204.822 Ea1 - [id number] Ortho Left: J&J DEPUY 204.822 / Implanted: Qty: 1 on 08/14/2021 by Catarino Christensen MD at [facility] Other ELBOW SYN[employer]ES / Screw Va Lk T8 Star 2.7x20mm N 020 Ea1 - [id number] Ortho Left: J&J DEPUY 020 / Implanted: Qty: 1 on 08/14/2021 by Catarino Christensen MD at [facility] Other ELBOW SYNTHES / Screw Va Lk T8 Star 2.7x20mm N 020 Ea1 - [id number] Ortho Left: J&J DEPUY 020 / Implanted: Qty: 1 on 08/14/2021 by Catarino Christensen MD at [facility] Other ELBOW SYN[employer]ES / Screw Va Lk T8 Star 2.7x40mm N 040 Ea1 - [id number] Ortho Left: J&J DEPUY / Implanted: Qty: 1 on 08/14/2021 by Catarino Christensen MD at [facility] Other ELBOW SYNTHES / Screw Va Lk T8 Star 2.7x50mm N 050 Ea1 - [id number] Ortho Left: J&J DEPUY 02.211.050 / Implanted: Qty: 1 on 08/14/2021 by Catarino Christensen MD at [facility] Other ELBOW SYNTHES / Screw Va Lk T8 Star 2.7x28mm N Ea1 - [id number] Ortho Left: J&J DEPUY / Implanted: Qty: 1 on 08/14/2021 by Catarino Christensen MD at [facility] Other ELBOW SYNTHES / Screw Jak Slftp 3.5x24mm N 204.824 Ea1 - [id number] Ortho Left: J&J DEPUY 204.824 / Implanted: Qty: 1 on 08/14/2021 by Catarino Christensen MD at [facility] Other ELBOW SYNTHES / Screw Jak Slftp 3.5x22mm N 204.822 Ea1 - [id number] Ortho Left: J&J DEPUY 204.822 / Implanted: Qty: 1 on 08/14/2021 by Catarino Christensen MD at [facility] Other ELBOW SYNTHES / Plate Fem Neck Sys Ster 1hl N 04.168.000s Ea1 - [id number] Ortho Left: HIP J&J DEPUY 11/21/2030 04.168.000S / Implanted: Qty: 1 on 08/14/2021 by Catarino Christensen MD at [facility] Other SYNTHES / [id number] Screw Slftp Stardrster5.0x36mm N 412.212s Ea1 - [id number] Ortho Left: HIP J&J DEPUY 08/21/2030 412.212S / Implanted: Qty: 1 on 08/14/2021 by Catarino Christensen MD at [facility] Other SYNTHES / [id number] Screw Antirotation Nmzyvut88yt N 04.168.485s Ea1 - [id number] Or tho Left: HIP J&J DEPUY 02/19/2031 04.168.485S / Implanted: Qty: 1 on 08/14/2021 by Catarino Christensen MD at [facility] Other SYNTHES / [id number] Elbow Rad Hd Ster 25x7.5mm +3 N 09.405.573s Ea1 - [id number] Tot al Jt J&J DEPUY 2023 09.405.573S / Implanted: Qty: 1 on 08/14/2021 by Catarino Christensen MD at [facility] Other SYNTHES / NA documented as of this encounter Procedures Procedure Name Priority Date/Time Associated Comments Diagnosis COMPLETE BLOOD COUNT Routine 08/20/2021 5:57 Res ults for this WITHOUT DIFFERENTIAL AM CDT procedu re are in the results section. MAGNESIUM Routine 08/20/2021 5:57 Results for this AM CDT procedure are i n the results section. RENAL FUNCTION PANEL Routine 08/20/2021 5:57 Res ults for this AM CDT procedure are i n the results section. COMPLETE BLOOD COUNT Routine 08/19/2021 5:49 Res ults for this WITHOUT DIFFERENTIAL AM CDT procedu re are in the results section. MAGNESIUM Routine 08/19/2021 5:49 Results for this AM CDT procedure are i n the results section. RENAL FUNCTION PANEL Routine 08/19/2021 5:49 Res ults for this AM CDT procedure are i n the results section. COMPLETE BLOOD COUNT Routine 08/18/2021 11:02 Res ults for this WITHOUT DIFFERENTIAL AM CDT procedu re are in the results section. MAGNESIUM Routine 08/18/2021 11:02 Results for this AM CDT procedure are i n the results section. RENAL FUNCTION PANEL Routine 08/18/2021 11:02 Res ults for this AM CDT procedure are i n the results section. COMPLETE BLOOD COUNT Routine 08/17/2021 8:28 Res ults for this WITHOUT DIFFERENTIAL AM CDT procedu re are in the results section. MAGNESIUM Routine 08/17/2021 8:28 Results for this AM CDT procedure are i n the results section. RENAL FUNCTION PANEL Routine 08/17/2021 8:28 Res ults for this AM CDT procedure are i n the results section. EKG Routine 08/16/2021 12:00 Results for this PM CDT procedure are i n the results section. XRAY CHEST PORTABLE Routine 08/16/2021 11:20 Resu lts for this AM CDT procedure are i n the results section. COMPLETE BLOOD COUNT Routine 08/16/2021 7:42 Res ults for this WITHOUT DIFFERENTIAL AM CDT procedu re are in the results section. MAGNESIUM Routine 08/16/2021 7:42 Results for this AM CDT procedure are i n the results section. RENAL FUNCTION PANEL Routine 08/16/2021 7:42 Res ults for this AM CDT procedure are i n the results section. LAB ONLY-URINE Routine 08/15/2021 1:42 Results f or this MICROSCOPIC REFLEX PM CDT procedure are in the results section. URINE DIP, REFLEX TO Routine 08/15/2021 1:42 Res ults for this MICROSCOPIC, REFLEX PM CDT procedur e are in TO CULTURE the results section. XRAY C-ARM Routine 08/14/2021 6:00 Results for this PM CDT procedure are i n the results section. OPEN REDUCTION 08/14/2021 1:34 Hip fracture (HCC) INTERNAL FIXATION PM CDT ELBOW Case Notes FNS of L hip with [place] table 1st- will turn pt prone on lowe and ORIF L olecranon 2nd LAB ONLY-COMPLETE BLOOD Routine 08/14/2021 9:18 AM CDT Results for this COUNT WITH DIFFERENTIAL proc edure are in the results section . BASIC METABOLIC PANEL Routine 08/14/2021 9:18 AM CDT Results for this procedure are i n the results section . LAB ONLY-COMPLETE BLOOD Routine 08/14/2021 9:18 AM CDT Results for this COUNT WITH DIFFERENTIAL proc edure are in the results section . ECHO ADULT COMPLETE Routine 08/14/2021 8:39 AM CDT Results for this procedure are i n the results section . EKG STAT 08/14/2021 8:21 AM CDT Resu lts for this procedure are i n the results section . EKG Routine 08/13/2021 8:50 PM CDT Resu lts for this procedure are i n the results section . LAB ONLY-ABORH STAT 08/13/2021 8:40 PM CDT Re sults for this procedure are i n the results section . PROTIME/INR STAT 08/13/2021 8:40 PM CDT Resu lts for this procedure are i n the results section . SPLINT APPLICATION Routine 08/13/2021 5:22 PM CDT XRAY ELBOW 2 VIEWS LT HARLEEN 08/13/2021 5:06 PM CDT Results for this procedure are i n the results section . CT EXTREMITY UPPER WITHOUT STAT 08/13/2021 5:06 PM CDT Results for this CONTRAST LT procedure are i n the results section . CT EXTREMITY LOWER WITHOUT STAT 08/13/2021 5:05 PM CDT Results for this CONTRAST LT procedure are i n the results section . TYPE AND SCREEN STAT 08/13/2021 3:05 PM CDT R esults for this procedure are i n the results section . COMPLETE BLOOD COUNT WITHOUT STAT 08/13/2021 3:05 PM CDT Results for this DIFFERENTIAL procedure are i n the results section . BASIC METABOLIC PANEL STAT 08/13/2021 3:05 PM CDT Results for this procedure are i n the results section . PROTIME/INR STAT 08/13/2021 3:04 PM CDT Resu lts for this procedure are i n the results section . documented in this encounter Results MAGNESIUM (08/20/2021 5:57 AM CDT) Pathologist [facility] Magnesium 1.8 1.6 - 2.6 mg/dL [facility] Specimen Blood - Blood specimen (specimen) Performing Organization Address [facility] Phon e Number [facility] [address] [place] [address] [phone] COMPLETE BLOOD COUNT WITHOUT DIFFERENTIAL (08/20/2021 5:57 AM CDT) Pathologist [facility] WBC 5.2 4.0 - 11.0 K/uL [facility] RBC 3.65 (L) 3.80 - 5.30 M/uL [facility] Hemoglobin 11.5 11.5 - 15.8 g/dL [facility] Hematocrit 35.7 35.0 - 45.0 % [facility] MCV 97.8 80.0 - 98.[address] [facility] MCH 31.5 25.5 - 34.[address] [facility] MCHC 32.2 31.5 - 36.5 g/dL [facility] RDW-CV 14.3 11.5 - 15.5 % [facility] RDW-SD 47.9 35.5 - 50.[address] [facility] Platelet Count 196 140 - 400 K/uL [facility] MPV 10.5 8.5 - 12.[address] [facility] Specimen Blood - Blood specimen (specimen) Performing Organization Address City/[facility] Code Phon e Number [facility] [address] [place] [address] RENAL FUNCTION PANEL (08/20/2021 5:57 AM CDT) Pathologist [facility] Glucose 104 (H) 70 - 99 mg/dL [facility] BUN 13 6 - 22 mg/dL [facility] Creatinine 0.71 0.60 - 1.[address] [facility] mg/dL GU[place] BUN/Creatinine Ratio 18.3 10.0 - 25.[address] [facility] Sodium 140 136 - 145 meq/L [facility] Potassium 4.3 3.5 - 5.1 meq/L [facility] Chloride 113 (H) 98 - 109 meq/L [facility] CO2 18 (L) 20 - 29 meq/L [facility] Anion Gap with K 13 6 - 20 meq/L [facility] Calcium 8.7 8.5 - 10.[address] [facility] mg/dL [place] Phosphorus 3.0 2.3 - 4.7 mg/dL [facility] Albumin 3.0 (L) 3.2 - 4.6 g/dL [facility] Corrected Calcium 9.5 8.5 - 10.[address] [facility] mg/dL GUANICA Age [address] [facility] eGFR Non- 83 >=60 [facility] mL/min/1.73m2 GUANICA eGFR >90 >=[address] [facility] mL/min/1.73m2 GU[place] Specimen Blood - Blood specimen (specimen) Performing Organization Address City/State/ZIP Code Phon e Number [facility] [address] [place], [place] [address] MAGNESIUM (08/19/2021 5:49 AM CDT) Pathologist [facility] Magnesium 2.1 1.8 - 2.4 mg/dL [facility] Specimen Blood - Blood specimen (specimen) Performing Organization Address City/State/ZIP Code Phon e Number [facility] [address], [place] [phone] COMPLETE BLOOD COUNT WITHOUT DIFFERENTIAL (08/19/2021 5:49 AM CDT) Pathologist [facility] WBC 5.1 4.0 - 11.0 K/uL [facility] RBC 3.63 (L) 3.80 - 5.30 M/uL [facility] Hemoglobin 11.6 11.5 - 15.8 g/dL [facility] Hematocrit 35.6 35.0 - 45.0 % [facility] MCV 98.1 (H) 80.0 - 98.[address] [facility] MCH 32.0 25.5 - 34.[address] [facility] MCHC 32.6 31.5 - 36.5 g/dL [facility] RDW-CV 14.1 11.5 - 15.5 % [facility] RDW-SD 48.1 35.5 - 50.[address] [facility] Platelet Count 168 140 - 400 K/uL [facility] MPV 10.1 8.5 - 12.[address] [facility] Specimen Blood - Blood specimen (specimen) Performing Organization Address City/State/ZIP Code Phon e Number [facility] [address] [place] [address] RENAL FUNCTION PANEL (08/19/2021 5:49 AM CDT) [facility] nature Glucose 104 (H) 70 - 100 mg/dL [facility] BUN 8 6 - 22 mg/dL [facility] Creatinine 0.66 0.60 - 1.[address] [facility] mg/[facility] BUN/Creatinine Ratio 12.1 10.0 - 25.[address] [facility] Sodium 141 135 - 145 meq/L [facility] Potassium 4.1 3.5 - 5.3 meq/L [facility] Chloride 119 (H) 99 - 110 meq/L [facility] CO2 16 (L) 20 - 29 meq/L [facility] Anion Gap with K 10 6 - 20 meq/L [facility] Calcium 7.9 (L) 8.5 - 10.[address] [facility] mg/dL [place] Phosphorus 1.8 (L) 2.5 - 4.5 mg/dL [facility] Albumin 3.0 (L) 3.5 - 5.0 g/dL [facility] Corrected Calcium 8.7 8.5 - 10.[address] [facility] mg/dL GUANICA Age [address] [facility] eGFR Non- 90 >=60 [facility] mL/min/1.73m2 GUANICA eGFR >90 >=[address] [facility] mL/min/1.73m2 GU[place] Specimen Blood - Blood specimen (specimen) Performing Organization Address City/[facility]/ZIP [facility] Phon e Number [facility] [address] [place] [address] MAGNESIUM (08/18/2021 11:02 AM CDT) Pathologist [facility] Magnesium 2.1 1.8 - 2.4 mg/dL [address] Specimen Blood - Blood specimen (specimen) Performing Organization Address [facility] Phon e Number [address] [place] [address] COMPLETE BLOOD COUNT WITHOUT DIFFERENTIAL (08/18/2021 11:02 AM CDT) Pathologist [facility] WBC 5.2 4.0 - 11.0 K/uL [address] RBC 3.87 3.80 - 5.30 M/uL [address] Hemoglobin 11.9 11.5 - 15.8 g/dL [address] Hematocrit 37.9 35.0 - 45.0 % [address] MCV 97.9 80.0 - 98.[address] MCH 30.7 25.5 - 34.[address] MCHC 31.4 (L) 31.5 - 36.5 g/dL [address] RDW-CV 13.8 11.5 - 15.5 % [address] RDW-SD 49.8 35.5 - 50.[address] Platelet Count 121 (L) 140 - 400 K/uL [address] MPV 10.2 8.5 - 12.[address] Specimen Blood - Blood specimen (specimen) Performing Organization Address [facility] Phon e Number [address] [place] [address] RENAL FUNCTION PANEL (08/18/2021 11:02 AM CDT) Pathologist [facility] Glucose 108 (H) 70 - 100 mg/dL [address] BUN 9 6 - 22 mg/dL [address] Creatinine 0.71 0.60 - 1.[address] mg/dL BUN/Creatinine Ratio 12.7 10.0 - 25.[address] Sodium 140 135 - 145 meq/L [address] Potassium 3.9 3.5 - 5.3 meq/L [address] Chloride 115 (H) 99 - 110 meq/L [address] CO2 17 (L) 20 - 29 meq/L [address] Anion Gap with K 12 6 - 20 meq/L [address] Calcium 8.2 (L) 8.5 - 10.5 mg/dL [address] Phosphorus 1.4 (L) 2.5 - 4.5 mg/dL [address] Albumin 3.1 (L) 3.5 - 5.0 g/dL [address] Corrected Calcium 8.9 8.5 - 10.5 mg/dL [address] Age [address] eGFR Non- 83 >=[address] [place] mL/min/1.73m2 eGFR >90 >=[address] mL/min/1.73m2 Specimen Blood - Blood specimen (specimen) Performing Organization Address City/[facility] Phon e Number [address] [place] [address] MAGNESIUM (08/17/2021 8:28 AM CDT) Pathologist [facility] Magnesium 2.1 1.8 - 2.4 mg/dL [address] Specimen Blood - Blood specimen (specimen) Performing Organization Address [facility] Phon e Number [address] [place] [address] COMPLETE BLOOD COUNT WITHOUT DIFFERENTIAL (08/17/2021 8:28 AM CDT) Pathologist [facility] WBC 5.5 4.0 - 11.0 K/uL [address] RBC 3.38 (L) 3.80 - 5.30 M/uL [address] Hemoglobin 10.8 (L) 11.5 - 15.8 g/dL [address] Hematocrit 32.7 (L) 35.0 - 45.0 % [address] MCV 96.7 80.0 - 98.[address] MCH 32.0 25.5 - 34.[address] MCHC 33.0 31.5 - 36.5 g/dL [address] RDW-CV 13.7 11.5 - 15.5 % [address] RDW-SD 48.5 35.5 - 50.[address] Platelet Count 122 (L) 140 - 400 K/uL [address] MPV 10.2 8.5 - 12.[address] Specimen Blood - Blood specimen (specimen) Performing Organization Address [facility] Phon e Number [address] [place] [address], [place] [address] RENAL FUNCTION PANEL (08/17/2021 8:28 AM CDT) [facility] Glucose 107 (H) 70 - 100 mg/dL [address] BUN 10 6 - 22 mg/dL [address] Creatinine 0.64 0.60 - 1.[address] mg/dL BUN/Creatinine Ratio 15.6 10.0 - 25.[address] Sodium 140 135 - 145 meq/L [address] Potassium 3.7 3.5 - 5.3 meq/L [address] Chloride 117 (H) 99 - 110 meq/L [address] CO2 16 (L) 20 - 29 meq/L [address] Anion Gap with K 11 6 - 20 meq/L [address] Calcium 7.7 (L) 8.5 - 10.5 mg/dL [address] Phosphorus 1.4 (L) 2.5 - 4.5 mg/dL [address] Albumin 2.9 (L) 3.5 - 5.0 g/dL [address] Corrected Calcium 8.6 8.5 - 10.5 mg/dL [address] Age [address] eGFR Non- >90 >=[address] [place] mL/min/1.73m2 eGFR >90 >=[address] mL/min/1.73m2 Specimen Blood - Blood specimen (specimen) Performing Organization Address [facility] Phon e Number [place] [address] [place] [id number] [place] [address], [place] [address] EKG (08/16/2021 12:00 PM CDT)Only the most recent of3 resultswithin the time period is included. Pathologist [facility] EKG WAVEFORM TIFFANY KEITH Normal sinus rhythm Possible Anterolateral infarct (cited on or before Jul-2021) Abnormal ECG Ventricular Rate: 89 BPM Atrial Rate: 89 BPM P-R Interval: 166 ms QRS Duration: 92 ms Q-T Interval: 404 ms QTc Calculation(Bazett): 491 ms Calculated P [place]: 34 degrees Calculated R [place]: -16 degrees Calculated T [place]: 53 degrees Specimen Narrative Performed At This result has an attachment that is no t available. Performing Organization Address City/State/ZIP Code Phon e Number TIFFANY KEITH XRAY CHEST PORTABLE - (08/16/2021 11:20 AM CDT) Specimen Narrative Performed At This result has an attachment that is no t available. [id number] Patient Name: GABRIELA MCKENNA Date of : 1955 Procedure: XRAY CHEST PORTABLE Date of Service: 08/16/2021 EXAM: XRAY CHEST PORTABLE INDICATION: Fever overnight post surgery, concern for atelectasis COMPARISON(S): 07/21/2021 FINDINGS: Minimal bibasal atelectasis. Heart size stable. No pne umothorax. Finalized by: Dagoberto Hyatt MD on 08/16/2021 1:39 PM CDT Patient/Procedure Information: [facility] MRN/BARB: [id number] Order Number: [id number] Accession Number: [id number] Ordering Provider: WALDO MCDERMOTT Authorizing Provider: ALICIA JEROME Procedure Note Interface, Radiantres - 08/16/2021 1:41 PM CDT Patient Name: GABRIELA MCKENNA Date of : 1955 Procedure: XRAY CHEST PORTABLE Date of Service: 08/16/2021 EXAM: XRAY CHEST PORTABLE INDICATION: Fever overnight post surgery , concern for atelectasis COMPARISON(S): 07/21/2021 FINDINGS: Minimal bibasal atelectasis. Heart size stable. No pneumothorax. Finalized by: Dagoberto Hyatt MD on 08/16/2021 1:39 PM CDT Patient/Procedure Information: [facility] MRN/BARB: [id number] Order Number: [id number] Accession Number: [id number] Ordering Provider: WALDO MCDERMOTT Authorizing Provider: ALICIA JEROME Performing Organization Address [facility] Phon e Number [id number] MAGNESIUM (08/16/2021 7:42 AM CDT) Pathologist [facility] Magnesium 2.0 1.8 - 2.4 mg/dL [address] Specimen Blood - Blood specimen (specimen) Performing Organization Address [facility] Phon e Number [address] [place] [address] COMPLETE BLOOD COUNT WITHOUT DIFFERENTIAL (08/16/2021 7:42 AM CDT) Pathologist [facility] WBC 6.7 4.0 - 11.0 K/uL [address] RBC 3.95 3.80 - 5.30 M/uL [address] Hemoglobin 12.3 11.5 - 15.8 g/dL [address] Hematocrit 37.9 35.0 - 45.0 % [address] MCV 95.9 80.0 - 98.[address] MCH 31.1 25.5 - 34.[address] MCHC 32.5 31.5 - 36.5 g/dL [address] RDW-CV 13.6 11.5 - 15.5 % [address] RDW-SD 48.3 35.5 - 50.[address] Platelet Count 113 (L) 140 - 400 K/uL [address] MPV 9.7 8.5 - 12.[address] Specimen Blood - Blood specimen (specimen) Performing Organization Address [facility] Phon e Number [place] [address] [facility] [address] [place] [address], [place] [address] RENAL FUNCTION PANEL (08/16/2021 7:42 AM CDT) Pathologist [facility] Glucose 98 70 - 100 mg/dL [address] BUN 9 6 - 22 mg/dL [address] Creatinine 0.70 0.60 - 1.[address] mg/dL BUN/Creatinine Ratio 12.9 10.0 - 25.[address] Sodium 142 135 - 145 meq/L [address] Potassium 3.5 3.5 - 5.3 meq/L [address] Chloride 116 (H) 99 - 110 meq/L [address] CO2 17 (L) 20 - 29 meq/L [address] Anion Gap with K 13 6 - 20 meq/L [address] Calcium 7.9 (L) 8.5 - 10.5 mg/dL [address] Phosphorus 1.1 (L) 2.5 - 4.5 mg/dL [address] Albumin 3.1 (L) 3.5 - 5.0 g/dL [address] Corrected Calcium 8.6 8.5 - 10.5 mg/dL [address] Age [address] eGFR Non- 84 >=[address] [place] mL/min/1.73m2 eGFR >90 >=[address] mL/min/1.73m2 Specimen Blood - Blood specimen (specimen) Performing Organization Address City/State/ZIP Code Phon e Number [address] [place] [address], [place] [address] LAB ONLY-URINE MICROSCOPIC REFLEX (08/15/2021 1:42 PM CDT) WBC Urine 0-5 /hpf Negative, 0-5 [place] [address] /hpf CLINIC RBC Urine 0-2 /hpf Negative, 0-2 [place] [address] /hpf CLINIC Squamous Occ (0-10) /lpf Negative, Occ [place] [address] Epithelial Cells (0-10) /lpf, Few CLINIC (11-20) /lpf Bacteria Negative Negative [address] Hyaline Cast 0-2 /lpf 0-2 /lpf [address] Specimen Urine - Urine specimen obtained via indw elling urinary catheter (specimen) Narrative Performed At Culture not performed - reflex criteria not met. [address] Culture is only performed when the urine macroscopic c olor is reported as Bright Renick, or whentwoor more of th e following criteria are met: Positive Nitrite, Positive Leukocyte Esterase, WBC's > 5 cells/hpf. Performing Organization Address [facility] Code Phon e Number [place] [address] [facility] [place] [address] URINE DIP, REFLEX TO MICROSCOPIC, REFLEX TO CULTURE (08/15/2021 1:42 PM CDT) Color Urine Straw Adriana, Dark [place] [address] Yellow, Straw, CLINIC Yellow, Colorless Clarity Urine Clear Clear [address] Glucose Urine Negative Negative [address] Bilirubin Urine Negative Negative [address] Ketones Urine Negative Negative, 5 [place] [address] mg/dL, 10 mg/dL CLINIC Specific Stevinson 1.015 1.002 - 1.[address] Blood Urine Negative Negative [address] PH Urine 6.5 5.0, 5.5, 6.0, [place] [address] 6.5, 7.0, 7.5, CLINIC 8.0 Protein Urine Trace (10-20) Negative [place] [address] mg/dL (A) [facility] Urobilinogen < 2 mg/dL < 2 mg/dL [address] Nitrite Negative Negative [address] Leukocyte Esterase Negative Negative [place] [address] Urine CLINIC Specimen Urine - Urine specimen obtained via indw elling urinary catheter (specimen) Narrative Performed At Microscopic Exam Reflexed [address] Performing Organization Address [facility] Phon e Number [address] [place] [address] XRAY C-ARM greater than one hour (08/14/2021 6:00 PM CDT) Specimen Narrative Performed At This result has an attachment that is no t available. Fluoroscopic image(s) submitted. Imaging assistance provided by [facility] RADIOLOGY Radiology. Performing Organization Address City/[facility] Phon e Number [facility] [address] [place] [address] RADIOLOGY LAB ONLY-COMPLETE BLOOD COUNT WITH DIFFERENTIAL (08/14/2021 9:18 AM CDT) Pathologist [facility] WBC 8.6 4.0 - 11.0 K/uL [address] RBC 4.57 3.80 - 5.[address] M/uL Hemoglobin 14.1 11.5 - 15.[address] g/dL Hematocrit 44.9 35.0 - 45.0 % [address] MCV 98.2 (H) 80.0 - 98.[address] MCH 30.9 25.5 - 34.[address] MCHC 31.4 (L) 31.5 - 36.[address] g/dL RDW-CV 13.7 11.5 - 15.5 % [address] RDW-SD 49.5 35.5 - 50.[address] Platelet Count 139 (L) 140 - 400 K/uL [address] MPV 9.9 8.5 - 12.[address] Seg Neut Absolute 6.6 1.8 - 8.0 K/uL [address] Lymphocytes Absolute 1.0 0.8 - 4.1 K/uL [place] [address] CLINI C Monocytes Absolute 0.5 0.0 - 1.0 K/uL [address] Eosinophils Absolute 0.4 0.0 - 0.7 K/uL [address] Basophil Absolute 0.0 0.0 - 0.2 K/uL [address] Immature Granulocyte 0.03 0.00 - 0.[address] Absolute K/uL Neutrophils Abs. 6,600 /uL [address] (Segs and Bands) Neutrophils Percent 77.3 % [address] Lymphocytes Percent 11.9 % [address] Monocytes Percent 5.4 % [address] Immature Granulocyte 0.4 % [address] Percent Eosinophils Percent 4.6 % [place] [address] CLINIC Basophil Percent 0.4 % [place] [address] CLINIC Nucleated RBC 0 /[address] Specimen Blood - Blood specimen (specimen) Performing Organization Address City/State/ZIP Code Phon e Number [address] [place] [address] BASIC METABOLIC PANEL (08/14/2021 9:18 AM CDT) Pathologist [facility] Glucose 100 70 - 100 mg/dL [address] BUN 13 6 - 22 mg/dL [address] Creatinine 0.87 0.60 - 1.[address] mg/dL BUN/Creatinine Ratio 14.9 10.0 - 25.[address] Sodium 141 135 - 145 meq/L [address] Potassium 3.8 3.5 - 5.3 meq/L [address] Chloride 113 (H) 99 - 110 meq/L [address] CO2 20 20 - 29 meq/L [address] Anion Gap with K 12 6 - 20 meq/L [address] Calcium 8.0 (L) 8.5 - 10.5 mg/dL [address] Age [address] eGFR Non- 65 >=[address] Peruv[place] mL/min/1.73m2 eGFR 79 >=[address] mL/min/1.73m2 Specimen Blood - Blood specimen (specimen) Performing Organization Address City/State/ZIP Code Phon e Number [address] [place] [address] ECHO ADULT COMPLETE (08/14/2021 8:39 AM CDT) Specimen Narrative Performed At This result has an attachment that is no t available. [facility] Patient: GABRIELA MCKENNA MR#: [id number] Exam Date: 08/14/2021 [facility] [address] [place] [address] BP: 115/75 mmHg HR: 66 bpm : 1955 Exam Location: Bedside Height: 68.00 "(172.7 cm) Age: 66 year(s) Patient Room: [place] [address] Weight: 222 lbs.(100.70 kg) Gender: Female Patient Status: Emergency BSA: 2.[address] Attendant: DOROTHY STARKEY RDCS (PE) Reading Physician: MARTHA BAUTISTA MD Ordering Physician: ALICIA JEROME Procedure Indication(s): Pre-op; post chemo Examination: TTE Complete 2D(m-mode), Complete Spectral Doppler, Color Doppler Exam Comments Patient scanned supine due to restricted mobility Conclusions Left Ventricle: Normal left ventricular systolic functio n. The ejection fraction is visually estimated to be 60 %. IVS: There is septal "bounce" motion Aortic Valve: Mild aortic regurgitation. No aortic stenosis. Right Ventricle: Normal right ventricular systolic functi on. Pulmonary artery systolic pressure is measured at 57 mmHg. Pulmonary Artery: Moderate pulmonary artery hypertension. Tricuspid Valve: Mild tricuspid regurgitation. IVC: The IVC is dilated. IVC collapse is less than 50%. Pericardium: No significant pericardial effusion. Comparison Study Comparison Date: 10/10/2013 Comparison Study: Transthoracic Echocardiogram RV size appears to have increased Findings Left Ventricle: Normal left ventricular size. Normal lef t ventricular systolic function. The ejection fraction is visually estimated to be 60 %. There are no left ventricular regional w all motion abnormalities. Grade 1 left ventricular diastolic dysfunction. There are left ventricular apical trabeculae. IVS: There is septal "bounce" motion. Left Atrium: Normal left atrial size. Aortic Valve: The aortic valve is tricuspid. Mild aort ic cuspal thickening. Mild aortic regurgitation. No aortic stenosis. Aorta: The sinus of valsalva is normal in size measuring 31.0 mm. The ascending aorta is normal in size measuring 36.0 mm. Mitral Valve: Mild mitral leaflet thickening. No signi ficant mitral regurgitation. No mitral stenosis. IAS: No gross evidence of shunt flow seen; ho wever the possibility of a PFO cannot be completely ruled out. Right Ventricle: Dilated right ventricle. Normal right ve ntricular systolic function. Normal right ventricular wall thickness. Pulmonary artery systolic pressure is measured at 57 mmHg. TAPSE measur es 23 mm. Pulmonary Artery: Moderate pulmonary artery hypertension. Right Atrium: Normal right atrial size by visual assessment. Tricuspid Valve: Normal tricuspid valve structure. Mild tricuspid regur gitation. Pulmonic Valve: Normal pulmonary valve structure. No sig nificant pulmonary regurgitation. No pulmonary stenosis. IVC: The IVC is dilated. IVC collapse is less than 50%. Pericardium: No significant pericardial effusion. There is pericard ial fat. Measurements Left Ventricle Aortic Valve Label Value Normal Value Label Value Normal Value Cardiac Output 6.67 L/min [place] (VTI) 3.1 cm-sq Cardiac Index 3.12 Obstructive Index 0.96 L/min/m-sq ( Vmax) LVEDVI, 2D 33.6 ml/m 2 Obstruction Index 0.89 LVESVI, 2D 13.1 ml/m 2 (VTI) Stroke Index 47.2 ml/m- sq LVOT Vmax 153 cm/s LVDd, 2D 40.4 mm AV Vmax 160 cm/s LVDs, 2D 27.4 mm LVOTd 21 mm IVSd, 2D 12.9 mm LVOT VTI 29.2 cm LVPWd, 2D 8 mm LVOT PGmax 9 mmHg FS, 2D 32.18 % AV Vmean 112 cm/s LVEF, 2D 61 % AV VTI 32.8 cm LVEDV, 2D 72 ml AV PGmax 10 mmHg LVESV, 2D 28 ml AV PGmean 6 mmHg Right Ventricle [place] (Vmax) 3.3 cm-sq Label Value Normal Value AV Vmax, Caliper 160 cm/s TAPSE 23 mm Mitral Valve Left Atrium Label Value Normal Value Label Value Normal Value MV E/A 0.67 LADs Long. 60 mm MV E Vmax 64 cm/s LA Volume Index 17.1 ml/m-sq MV A Vmax 95 cm/s Aorta MV E/E' lateral 4.82 Label Value Normal Value MV E/E' septal 7.55 Ao Asc 36 mm MV Dec Time 180 ms Ao Sinus, 2D 31 mm MV E' septal 0.1 cm/s Great Vessels MV E' lateral 0.1 cm/s Label Value Normal Value Tricuspid Valve IVC 22 mm Label Value Normal Value Heart Rate RA Pressure 15 mmHg Label Value Normal Value TR Vmax 322 cm/s Heart Rate 66 bpm TR Pmax 42 mmHg RVSP 57 mmHg Pulmonic Valve Label Value Norm al Value PV Vmax 129 cm/s PV PGmax 7 mmHg Procedure Note Interface, Inc Results No Pull Forward - 08/14/2021 10:23 AM CDT Patient: GABRIELA MCKENNA MR#: [id number] Exam Date: 08/14/2021 [facility] [address] [place]an[place]horacic [place] [address] BP: 115/75 mmHg HR: 66 bpm : 1955 Exa m Location: Bedside Height: 68.00 "(172.7 cm) Age: 66 year(s) Pat ient Room: [id number] [id number] Weight: 222 lbs.(100.70 kg) Gender: Female Pat ient Status: Emergency BSA: 2.[address] Attendant: DOROTHY HATHAWAY RDCS (PE) Reading Physician: SARAH BAUTISTA MD Ordering Physician: ALICIA YAP Procedure Indication(s): Pre-op; post chemo Examination: TTE Com plete 2D(m-mode), Complete Spectral Doppler, Color Doppler Exam Comments Patient scanned supine due to restricted mobility Conclusions Left Ventricle: Normal left ventricular systolic functio n. The ejection fraction is visually estimated to be 60 %. IVS: There is septal "bounce" motion Aortic Valve: Mild aortic regurgitation. No aortic noelle nosis. Right Ventricle: Normal right ventricular systolic functi on. Pulmonary artery systolic pressure is measured at 57 mmHg. Pulmonary Artery: Moderate pulmonary artery hypertension. Tricuspid Valve: Mild tricuspid regurgitation. IVC: The IVC is dilated. IVC collapse is less than 50%. Pericardium: No significant pericardial effusion. Comparison Study Comparison Date: 10/10/2013 Comparison Study: Transthoracic Echocard iogram RV size appears to have increased Findings Left Ventricle: Normal left ventricular size. Normal lef t ventricular systolic function. The ejection fraction is visually estimated to be 60 %. There are no left ventricular regional w all motion abnormalities. Grade 1 left ventricular diastolic dysfunction. There are left ventricular apical trabeculae. IVS: There is septal "bounce" motion. Left Atrium: Normal left atrial size. Aortic Valve: The aortic valve is tricuspid. Mild aort ic cuspal thickening. Mild aortic regurgitation. No aortic stenosis. Aorta: The sinus of valsalva is normal in size measuring 31.0 mm. The ascending aorta is normal in size measuring 36.0 mm. Mitral Valve: Mild mitral leaflet thickening. No signi ficant mitral regurgitation. No mitral stenosis. IAS: No gross evidence of shunt flow seen; ho wever the possibility of a PFO cannot be completely ruled out. Right Ventricle: Dilated right ventricle. Normal right ve ntricular systolic function. Normal right ventricular wall thickness. Pulmonary artery systolic pressure is measured at 57 mmHg . TAPSE measures 23 mm. Pulmonary Artery: Moderate pulmonary artery hypertension. Right Atrium: Normal right atrial size by visual asses sment. Tricuspid Valve: Normal tricuspid valve structure. Mild t ricuspid regurgitation. Pulmonic Valve: Normal pulmonary valve structure. No sig nificant pulmonary regurgitation. No pulmonary stenosis. IVC: The IVC is dilated. IVC collapse is less than 50%. Pericardium: No significant pericardial effusion. The re is pericardial fat. Measurements Left Ventricle Aortic Valve Label Value Nor mal Value Label Value Normal Value Cardiac Output 6.67 L/min [place] (VTI) 3.1 cm-sq Cardiac Index 3.12 Obstructive Index 0.96 L/min/m-sq ( Vmax) LVEDVI, 2D 33.6 ml/m2 Obstruction Index 0.89 LVESVI, 2D 13.1 ml/m2 (VTI) Stroke Index 47.2 ml/m-sq LVOT Vmax 153 cm/s LVDd, 2D 40.4 mm AV Vmax 160 cm/s LVDs, 2D 27.4 mm LVOTd 21 mm IVSd, 2D 12.9 mm LVOT VTI 29.2 cm LVPWd, 2D 8 mm LVOT PGmax 9 mmHg FS, 2D 32.18 % AV Vmean 112 cm/s LVEF, 2D 61 % AV VTI 32.8 cm LVEDV, 2D 72 ml AV PGmax 10 mmHg LVESV, 2D 28 ml AV PGmean 6 mmHg Right Ventricle [place] (Vmax) 3.3 cm-sq Label Value Nor mal Value AV Vmax, Caliper 160 cm/s TAPSE 23 mm Mitral Valve Left Atrium Label Value Normal Value Label Value Nor mal Value MV E/A 0.67 LADs Long. 60 mm MV E Vmax 64 cm/s LA Volume Index 17.1 ml/m-sq MV A Vmax 95 cm/s Aorta MV E/E' lateral 4.82 Label Value Nor mal Value MV E/E' septal 7.55 Ao Asc 36 mm MV Dec Time 180 ms Ao Sinus, 2D 31 mm MV E' septal 0.1 cm/s Great Vessels MV E' lateral 0.1 cm/s Label Value Normal Value Tricuspid Valve IVC 22 mm Label Value Normal Value Heart Rate RA Pressure 15 mmHg Label Value Nor mal Value TR Vmax 322 cm/s Heart Rate 66 bpm TR Pmax 42 mmHg RVSP 57 mmHg Pulmonic Valve Label Value Nor mal Value PV Vmax 129 cm/s PV PGmax 7 mmHg Performing Organization Address City/[facility]/ZIP Code Phon e Number [facility], [place] PROTIME/INR (08/13/2021 8:40 PM CDT) Pathologist Sig nature Protime 15.4 (H) 12.0 - 14.[address] INR 1.3 (H) 0.9 - 1.[address] Specimen Blood - Blood specimen (specimen) Narrative Performed At INR Standard Intensity = (2.0 - 3.0) [address] INR Higher Intensity = (2.5 - 3.5) Performing Organization Address [facility]/ZIP Code Phon e Number [address] [place] [address] LAB ONLY-ABORH (08/13/2021 8:40 PM CDT) Pathologist Sig nature ABO Type O [address] BLOOD BA NK Rh Type Positive [address] BLOOD BA NK Specimen Blood - Blood specimen (specimen) Performing Organization Address City/[facility]/ZIP Code Phon e Number [address] BLOOD BANK [address] [place] [address] XRAY ELBOW 2 VIEWS LT (08/13/2021 5:06 PM CDT) Specimen Narrative Performed At This result has an attachment that is no t available. PS360 Patient Name: GABRIELA MCKENNA Date of : 1955 Procedure: XRAY ELBOW 2 VIEWS LT Date of Service: 08/13/2021 EXAM: XRAY ELBOW 2 VIEWS LT INDICATION: Female, 66 years year old patient, fall with proximal radial/ulnar fracture COMPARISON(S): X-ray left forearm dated 08/13/2021. Left upper extremi ty CT dated 08/11/2021. TECHNIQUE: 3 view(s) of the left elbow. FINDINGS: Single oblique lateral view shows overly ing cast material. Impacted comminuted fracture of the radial neck and adjacent olecranon process show prominent apex dorsal angulation similar to prior CT. Fract ure at the coronoid process is better se en on prior CT. No dislocation at the elbow joint. Dorsal soft tissue thickening consistent with contusio n. IMPRESSION: Impacted angulated comminuted fracture of the proximal radius and ulna. Finalized by: Hermes Goddard on 08/14/2021 12:18 AM CDT Patient/Procedure Information: [facility] MRN/BARB: [id number] Order Number: [id number] Accession Number: [id number] Ordering Provider: KAI CLARK Authorizing Provider: ISA ZHU Procedure Note Interface, Radiantres - 08/14/2021 12:20 AM CDT Patient Name: GABRIELA MCKENNA Date of : 1955 Procedure: XRAY ELBOW 2 VIEWS LT Date of Service: 08/13/2021 EXAM: XRAY ELBOW 2 VIEWS LT INDICATION: Female, 66 years year old p atient, fall with proximal radial/ulnar fracture COMPARISON(S): X-ray left forearm dated 08/13/2021. Left upper extremity CT dated 08/11/2021. TECHNIQUE: 3 view(s) of the left elbow. FINDINGS: Single oblique lateral view shows overly ing cast material. Impacted comminuted fracture of the radial neck and adjacent olecranon process show prominent apex dorsal angulation similar to prior CT. Fracture at the coronoid process is better seen on prior CT. No dislocation at the elbow joint. Dorsal soft tissue thickening consistent with contusion. IMPRESSION: Impacted angulated comminuted fracture o f the proximal radius and ulna. Finalized by: Hermes Goddard on 08/14/2021 12:18 AM CDT Patient/Procedure Information: [facility] MRN/BARB: [id number] Order Number: [id number] Accession Number: [id number] Ordering Provider: KAI CLARK Authorizing Provider: ISA ZHU Performing Organization Address City/State/ZIP Code Phon e Number PS360 CT EXTREMITY UPPER WITHOUT CONTRAST LT (08/13/2021 5:06 PM CDT) Specimen Narrative Performed At PS360 Patient Name: GABRIELA MCKENNA Date of : 1955 Procedure: CT EXTREMITY UPPER WITHOUT C ONTRAST LT Date of Service: 08/13/2021 EXAM: CT EXTREMITY UPPER WITHOUT CONTRAS T LT INDICATION: Fracture, elbow, Left proxim al radius and ulnar fracture COMPARISON(S): Elbow radiographs 08/13/2021 TECHNIQUE: Axial images were obtained through the region of the l eft elbow. Coronal and sagittal reconstruction images were obtained. FINDING: There is a transverse fracture through the radial neck with apex the dorsal angulation and mild impaction. There is a moder ately comminuted oblique moderately distracted fracture of the proxim al ulna with intra-articular extension at the in the region of the coronoid process. There is mild to moderate apex dorsal angulation. Ther e is moderate surrounding soft tissue swelling. IMPRESSION: 1. Transverse radial neck fracture with mild impaction and mild to moderate apex dorsal angulation. 2. Moderately comminuted and distracted proximal ulnar fracture with intra-articular extension and mild/moder ate apex dorsal angulation. 3. Moderate soft tissue swelling at the elbow. Finalized by: Junito Arteaga MD on 021 5:25 PM CDT Patient/Procedure Information: [facility] MRN/BARB: [id number] Order Number: [id number] Accession Number: [id number] Ordering Provider: KAI CLARK Authorizing Provider: ISA ZHU Procedure Note Interface, Radiantres - 08/13/2021 5:27 PM CDT Patient Name: GABRIELA MCKENNA Date of : 1955 Procedure: CT EXTREMITY UPPER WITHOUT C ONTRAST LT Date of Service: 08/13/2021 EXAM: CT EXTREMITY UPPER WITHOUT CONTRAS T LT INDICATION: Fracture, elbow, Left proxim al radius and ulnar fracture COMPARISON(S): Elbow radiographs 08/13/2021 TECHNIQUE: Axial images were obtained through the r egion of the left elbow. Coronal and sagittal reconstruction images were obtained. FINDING: There is a transverse fracture through t he radial neck with apex the dorsal angulation and mild impaction. There is a moderately comminuted oblique moderately distracted fracture of the proximal ulna with intra-articular extension at the in the region of the coronoid process. There is mild to moderate apex dorsal angulation. There is moderate surrounding soft tissue swelling. IMPRESSION: 1. Transverse radial neck fracture with mild impaction and mild to moderate apex dorsal angulation. 2. Moderately comminuted and distracted proximal ulnar fracture with intra- articular extension and mild/moderate apex dorsal angulation. 3. Moderate soft tissue swelling at the elbow. Finalized by: Junito Arteaga MD on 5:25 PM CDT Patient/Procedure Information: [facility] MRN/BARB: [id number] Order Number: [id number] Accession Number: [id number] Ordering Provider: KAI CLARK Authorizing Provider: ISA ZHU Performing Organization Address City/State/ZIP Code Phon e Number PS360 CT EXTREMITY LOWER WITHOUT CONTRAST LT (08/13/2021 5:05 PM CDT) Specimen Narrative Performed At PS360 Patient Name: GABRIELA MCKENNA Date of : 1955 Procedure: CT EXTREMITY LOWER WITHOUT C ONTRAST LT Date of Service: 08/13/2021 EXAM: CT EXTREMITY LOWER WITHOUT CONTRAS T LT INDICATION: Fracture, hip COMPARISON(S): The left hip radiographs 08/13/2021 TECHNIQUE: Axial images of the left hip were obtained. Coronal an d sagittal reconstruction images were obtained. FINDING: There is an oblique fracture through the femoral neck which starts in the mid cervical region on the medial side extends to the subcapital area on the lateral side. Mild impaction. There is mil d joint space narrowing at the left hip with minor acetabular spurri ng. Minor sclerosis and spurring at the left SI joint. Also mild to moderate sclerosis and spurring at the pubic symp hysis. IMPRESSION: 1. Oblique femoral neck fracture with mi ld impaction as noted. 2. Bghe-qo-udomoyid arthritic changes le ft SI joint and pubic symphysis. Finalized by: Junito Arteaga MD on 5:20 PM CDT Patient/Procedure Information: [facility] MRN/BARB: [id number] Order Number: [id number] Accession Number: [id number] Ordering Provider: KAI CLARK Authorizing Provider: ISA ZHU Procedure Note Interface, Radiantres - 08/13/2021 5:22 PM CDT Patient Name: GABRIELA MCKENNA Date of : 1955 Procedure: CT EXTREMITY LOWER WITHOUT C ONTRAST LT Date of Service: 08/13/2021 EXAM: CT EXTREMITY LOWER WITHOUT CONTRAS T LT INDICATION: Fracture, hip COMPARISON(S): The left hip radiographs 08/13/2021 TECHNIQUE: Axial images of the left hip were obtain ed. Coronal and sagittal reconstruction images were obtained. FINDING: There is an oblique fracture through the femoral neck which starts in the mid cervical region on the medial side extends to the subcapital area on the lateral side. Mild impaction. There is mild joint space narrowing at the left hip with minor acetabular spurr ing. Minor sclerosis and spurring at the left SI joint. Also mild to moderate sclerosis and spurring at the pubic symphysis. IMPRESSION: 1. Oblique femoral neck fracture with mi ld impaction as noted. 2. Nyaa-hq-iipgscgf arthritic changes le ft SI joint and pubic symphysis. Finalized by: Junito Arteaga MD on 021 5:20 PM CDT Patient/Procedure Information: [facility] MRN/BARB: [id number] Order Number: [id number] Accession Number: [id number] Ordering Provider: KAI CLARK Authorizing Provider: ISA ZHU Performing Organization Address [facility] Phon e Number PS360 TYPE AND SCREEN (08/13/2021 3:05 PM CDT) Pathologist Sig nature ABO Type O [address] BLOOD BANK Rh Type Positive [address] BLOOD BANK Antibody Screen Negative [address] Comment: BLOOD BANK Allogenic Red Cells Available 08/13/21 Expiration Date 08/16/2021 23:[address] BLOOD BANK Specimen Blood - Blood specimen (specimen) Performing Organization Address [facility] Phon e Number [address] BLOOD BANK [address] [facility] [place] [address] COMPLETE BLOOD COUNT WITHOUT DIFFERENTIAL (08/13/2021 3:05 PM CDT) Pathologist Sig nature WBC 9.5 4.0 - 11.0 K/uL [address] RBC 4.67 3.80 - 5.30 M/uL [address] Hemoglobin 15.0 11.5 - 15.8 g/dL [address] Hematocrit 46.1 (H) 35.0 - 45.0 % [address] MCV 98.7 (H) 80.0 - 98.[address] MCH 32.1 25.5 - 34.[address] MCHC 32.5 31.5 - 36.5 g/dL [address] RDW-CV 13.6 11.5 - 15.5 % [address] RDW-SD 49.1 35.5 - 50.[address] Platelet Count 151 140 - 400 K/uL [address] MPV 10.2 8.5 - 12.[address] Specimen Blood - Blood specimen (specimen) Performing Organization Address [facility] Phon e Number [address] [place] [address], [place] [address] BASIC METABOLIC PANEL (08/13/2021 3:05 PM CDT) Pathologist Sig nature Glucose 94 70 - 100 mg/dL [address] BUN 11 6 - 22 mg/dL [address] Creatinine 0.91 0.60 - 1.[address] mg/dL BUN/Creatinine Ratio 12.1 10.0 - 25.[address] Sodium 142 135 - 145 meq/L [address] Potassium 4.0 3.5 - 5.3 meq/L [address] Chloride 112 (H) 99 - 110 meq/L [address] CO2 23 20 - 29 meq/L [address] Anion Gap with K 11 6 - 20 meq/L [address] Calcium 8.7 8.5 - 10.5 mg/dL [address] Age [address] eGFR Non- 62 >=[address] Peruvian mL/min/1.73m2 eGFR 75 >=[address] mL/min/1.73m2 Specimen Blood - Blood specimen (specimen) Performing Organization Address City/[facility] Phon e Number [place] [address] [facility] [address] [place] [address], [place] [address] PROTIME/INR (08/13/2021 3:04 PM CDT) Pathologist Sig nature Protime 13.4 12.0 - 14.5 secs [place] [address] [facility] INR 1.1 0.9 - 1.1 [place] [address] [facility] Specimen Blood - Blood specimen (specimen) Narrative Performed At INR Standard Intensity = (2.0 - 3.0) [place] [address] [facility] INR Higher Intensity = (2.5 - 3.5) Performing Organization Address City/State/ZIP Code Phon e Number [address] [place] [address] documented in this encounter Visit Diagnoses Diagnosis Fall, initial encounter - Primary Left displaced femoral neck fracture (HC C) Closed fracture of unspecified part of n meri of femur Closed displaced fracture of neck of lef t radius, initial encounter Closed fracture of proximal end of left ulna, unspecified fracture morphology, initial encounter Hip fracture (HCC) Closed fracture of unspecified part of n meri of femur Gastroesophageal reflux disease, unspeci fied whether esophagitis present Hyperlipidemia, unspecified hyperlipidem ia type Chronic bronchitis, unspecified chronic bronchitis type (HCC) Seasonal allergies Allergic rhinitis, cause unspecified Obesity (BMI 30.0-34.9) Obesity, unspecified History of cardiovascular disorder Personal history of unspecified circulat ory disease Hypothyroidism (acquired) Unspecified hypothyroidism History of breast cancer Personal history of malignant neoplasm o f breast Edema, peripheral Edema Cough Other polyneuropathy Depressive disorder Depressive disorder, not elsewhere class ified Insomnia, unspecified type Other cardiac arrhythmia Takes dietary supplements Hypokalemia Hypopotassemia Wrist fracture Unspecified closed fracture of carpal demetra ne Chronic obstructive lung disease (HCC) Chronic airway obstruction, not elsewher e classified Migraine Migraine, unspecified, without mention o f intractable migraine without mention of status migrainosus Hypertensive disorder Unspecified essential hypertension documented in this encounter Discharge Diagnoses Not on filedocumented in this encounter Administered Medications Medication Order MAR Action Action Date Dose Rate Site acetaminophen (TYLENOL) tablet Given 08/20/2021 8:08 AM CDT 1,0 00 mg 1,000 mg 1,000 mg, Oral, Three times a day, First dose on Wed08/15/21 at 1500, Until Discontinued, Adult patients: Total dose of acetaminophen from all acetaminophen containing products should not exceed 4 grams (4000 mg) per day. Pediatric Patients 0 - 3 months: Maximum of 60 mg/kg/24 hours of acetaminophen. Pediatric Patients older than 3 months: Maximum of 75 mg/kg/24 hours of acetaminophen (Never exceeding 4 grams/day). Given 08/19/2021 8:02 PM CDT 1,000 mg Given 08/19/2021 3:06 PM CDT 1,000 mg atorvaSTATin (LIPITOR) tablet 20 mg Given 08/20/2021 7:46 AM CDT 20 mg 20 mg, Oral, DAILY, First dose on Wed08/14/21 at 0900, Until Discontinued Given 08/19/2021 9:02 AM CDT 20 mg Given 08/18/2021 7:44 AM CDT 20 mg budesonide (PULMICORT) 0.5 mg/2 mL inhalation Given 6:23 AM CDT 1 mg soln 1 mg 1 mg, Nebulization, Two times a day, First dose on Wed08/13/21 at 2000, Until Discontinued, 4 mL Given 08/19/2021 6:56 PM CDT 1 mg Given 08/19/2021 6:36 AM CDT 1 mg enoxaparin (LOVENOX) subcutaneous injection Given 08/20/2021 7:43 AM CDT 40 mg solution 40 mg 40 mg, Subcutaneous, Daily, 28 doses, First dose on Wed08/15/21 at 0800, Last dose on Wed09/11/21 at 0800, Post - Op, Begin 0800 on first postop day. To avoid the loss of drug when using the 30 mg and 40 mg prefilled syringes, do not expel the air bubble from the syringe before the injection. For ADULT patients: Administration should be alternated between the left and right anterolateral and left and right posterolateral abdominal wall. The whole length of the needle should be introduced into a skin fold held between the thumb and forefinger; the skin fold should be held throughout the injection. To minimize bruising, do not rub the injection site after completion of the injection. For PEDIATRIC patients: Administration should be alternated between appropriate sites for patient age/weight (infants/small children = upper thigh; older children/adolescents = left and right anterolateral and left and right posterolateral abdominal wall). During administration to infants/smaller children sometimes the whole length of the needle is not "introduced" during the injection. Administer injection into a skin fold held between the thumb and forefinger; the skin fold should be held throughout the injection. To minimize bruising, do not rub the injection site after completion of the injection. Given 08/19/2021 9:02 AM CDT 40 mg Given 08/18/2021 7:43 AM CDT 40 mg escitalopram (LEXAPRO) tablet 10 mg Given 08/20/2021 7:46 AM CDT 10 mg 10 mg, Oral, DAILY, First dose on Wed08/14/21 at 0900, Until Discontinued Given 08/19/2021 9:02 AM CDT 10 mg Given 08/18/2021 7:44 AM CDT 10 mg guaiFENesin (ROBITUSSIN) oral solution (100 Given 08/20/2021 10:13 AM CDT 10 mL mg/5 mL) 10 mL 10 mL, Oral, Every six hours prn, Starting on Wed08/19/21 at 1017, Until Discontinued, cough, 10 mL HYDROmorphone (DILAUDID) injection solution Given 07/24 8:38 PM CDT 0.5 mg (conc: 0.5 mg/0.5mL) 0.5 mg 0.5 mg, IV, Every four hours prn, Starting on Wed08/13/21 at 1943, Until Discontinued, breakthrough pain, 0.5 mL Given 08/14/2021 11:51 AM CDT 0.5 mg Given 08/14/2021 6:17 AM CDT 0.5 mg lansoprazole (PREVACID) capsule 30 mg Given 08/20/2021 7:47 AM CDT 30 mg 30 mg, Oral, Every morning, First dose on Wed08/14/21 at 0900, Until Discontinued, Capsules should be swallowed whole. For patients who have difficulty swallowing capsules, lansoprazole can be opened and the intact granules can be sprinkled on 1 tablespoon of applesauce and swallowed immediately. Given 08/19/2021 9:02 AM CDT 30 mg Given 08/18/2021 7:44 AM CDT 30 mg letrozole (FEMARA) tablet 2.5 mg Given 08/20/2021 7:48 AM CDT 2.5 mg 2.5 mg, Oral, DAILY, First dose on Wed08/14/21 at 0900, Until Discontinued, This medication is a high risk hazardous drug. Wear 2 pairs of chemo gloves for administration. If administering oral liquid or sublingual, also wear a chemo gown and face shield if there is a possibility of splashing. If unable to administer dose intact - contact pharmacy or reference policy for other administration options. Dispose of empty packages in the yellow hazardous container. Dispose of unused or partial packages in the black waste container and label must be marked as containing chemotherapy as outlined by the region. Given 08/19/2021 9:02 AM CDT 2.5 mg Given 08/18/2021 7:43 AM CDT 2.5 mg levothyroxine tablet 25 mcg Given 08/19/2021 8:03 PM CDT 25 mcg 25 mcg, Oral, Bedtime, First dose on Wed08/13/21 at 2100, Until Discontinued Given 08/18/2021 10:25 PM CDT 25 mcg Given 08/17/2021 9:41 PM CDT 25 mcg melatonin tablet 6 mg Given 08/19/2021 8:03 PM CDT 6 mg 6 mg, Oral, Bedtime, First dose on Wed08/15/21 at 2100, Until Discontinued Given 08/18/2021 10:25 PM CDT 6 mg Given 08/17/2021 9:41 PM CDT 6 mg metoprolol succinate (TOPROL XL) SR Given 08/20/2021 7:42 AM CD T 12.5 mg half-tablet (24 hr) 12.5 mg 12.5 mg, Oral, DAILY, First dose on Wed08/14/21 at 0900, Until Discontinued, Tablet may be broken in half, but should not be crushed or chewed. Given 08/18/2021 8:42 AM CDT 12.5 mg Given 08/16/2021 7:54 AM CDT 12.5 mg montelukast (SINGULAIR) tablet 10 mg Given 08/20/2021 7:48 AM CDT 10 mg 10 mg, Oral, Daily, First dose on Wed08/14/21 at 0900, Until Discontinued Given 08/19/2021 9:02 AM CDT 10 mg Given 08/18/2021 7:43 AM CDT 10 mg ondansetron (ZOFRAN ODT) dispersible tab let 4 mg 4 mg, Oral, Four times a day prn, Starting on 08/13 at 1940, Until Discontinued, nausea, vomiting, Use FIRS T for nausea / vomiting. If ineffective after 30 minutes use ondansetron IV ondansetron (ZOFRAN) injection solution 4 mg Given 08/14/2021 6:16 AM CDT 4 mg 4 mg, IV, Four times a day prn, Starting on Wed08/13/21 at 1940, Until Discontinued, nausea, vomiting, 2 mL, Use SECOND for nausea / vomiting. If ineffective after 30 minutes and ondansetron oral given, use metoclopramide IV If preference is to further dilute for IV administration: First draw up patient-specific dose, then dilute to 10 mL with 0.9% sodium chloride. oxyCODONE (OXY-IR) tablet 2.5 mg Given 08/19/2021 8:03 PM CDT 2.5 mg 2.5 mg, Oral, Every six hours prn, Starting on Wed08/15/21 at 0920, Until Discontinued, moderate pain Given 08/18/2021 1:57 PM CDT 2.5 mg Given 08/17/2021 9:41 PM CDT 2.5 mg oxyCODONE (OXY-IR) tablet 5 mg Given 08/20/2021 10:20 AM CDT 5 mg 5 mg, Oral, Every six hours prn, Starting on Wed08/15/21 at 0920, Until Discontinued, severe pain Given 08/20/2021 4:48 AM CDT 5 mg Given 08/19/2021 11:54 AM CDT 5 mg potassium chloride (KLOR-CON M20) CR tablet Given 07/24 7:46 AM CDT 20 mEq 20 mEq 20 mEq, Oral, Two times a day, First dose on Wed08/13/21 at 2100, Until Discontinued, Tablet may be broken in half, but should not be crushed or chewed. Tablet may be dissolved in 4 oz of water. DO NOT give via feeding tube route as this can clog the tube. Given 08/19/2021 8:03 PM CDT 20 mEq Given 08/19/2021 9:02 AM CDT 20 mEq senna-docusate sodium Given 08/18/2021 10:25 PM CDT 1 tablet (SENOKOT-S;PERICOLACE) tablet 1 tablet 1 tablet, Oral, Two times a day, First dose on Wed08/14/21 at 2100, Until Discontinued, Post - Op, Hold if 2 loose stools occur in the last 24 hours. Given 08/18/2021 7:44 AM CDT 1 tablet Given 08/17/2021 9:41 PM CDT 1 tablet sodium chloride 0.9% flush (adult) 10 mL Given 08/19/2021 8:10 PM CDT 10 mL 10 mL, IV, Two times a day and prn, First dose on Wed08/13/21 at 2100, Until Discontinued, 10 mL, Flush PIV line as scheduled and as often as necessary before and after meds. Use a push / pause technique when flushing to create turbulence. Given 08/19/2021 9:06 AM CDT 10 mL Given 08/18/2021 7:45 AM CDT 10 mL spironolactone (ALDACTONE) tablet 12.5 m g Given 08/20/2021 7:46 AM CDT 12.5 mg 12.5 mg, Oral, DAILY, First dose on Wed08/15/21 at 0900, Until Discontinued, Hold for SBP less than 100 If unable to administer dose intact, wear universal precautions (one pair of gloves). Given 08/19/2021 9:03 AM CDT 12.5 mg Given 08/18/2021 7:44 AM CDT 12.5 mg tamsulosin (FLOMAX) capsule 0.4 mg Given 08/20/2021 7:49 AM CDT 0.4 mg 0.4 mg, Oral, Daily, First dose on Wed08/17/21 at 1300, Until Discontinued, Swallow cap whole. Do not crush, chew or open. Given 08/19/2021 9:02 AM CDT 0.4 mg Given 08/18/2021 7:43 AM CDT 0.4 mg topiramate (TOPAMAX) tablet 25 mg Given 08/20/2021 7:49 AM CDT 25 mg 25 mg, Oral, Every morning, First dose on Wed08/14/21 at 0900, Until Discontinued, Topamax tablets should be swallowed whole and should not be chewed due to bitter taste. They may be crushed, mixed with water, and given immediately. If unable to administer dose intact, wear universal precautions (one pair of gloves). Given 08/19/2021 9:03 AM CDT 25 mg Given 08/18/2021 7:44 AM CDT 25 mg topiramate (TOPAMAX) tablet 50 mg Given 08/19/2021 8:07 PM CDT 50 mg 50 mg, Oral, Bedtime, First dose on Wed08/13/21 at 2100, Until Discontinued, Topamax tablets should be swallowed whole and should not be chewed due to bitter taste. They may be crushed, mixed with water, and given immediately. If unable to administer dose intact, wear universal precautions (one pair of gloves). Given 08/18/2021 10:25 PM CDT 50 mg Given 08/17/2021 9:45 PM CDT 50 mg umeclidinium (INCRUSE ELLIPTA) 62.5 mcg/puff Given 6:22 AM CDT 1 puff inhaler 1 puff 1 puff, Inhalation, Daily, First dose on Wed08/14/21 at 0900, Until Discontinued, Formulary Substitute. With first dose, inform patient that this medication is being used in place of tiotropium (Spiriva) inhaler while inpatient. Given 08/19/2021 10:46 AM CDT 1 puff Given 08/18/2021 8:45 AM CDT 1 puff Medication Order MAR Action Action Date Dose Rate Site acetaminophen (TYLENOL) tablet Given 08/14/2021 12:46 AM CDT 650 mg 650 mg 650 mg, Oral, Every four hours prn, Starting on Wed08/13/21 at 1940, Until Wed08/15/21 at 1131, mild pain, fever, for pain scale 3 or less or if patient prefers this medication for pain, Adult patients: Total dose of acetaminophen from all acetaminophen containing products should not exceed 4 grams (4000 mg) per day. Pediatric Patients 0 - 3 months: Maximum of 60 mg/kg/24 hours of acetaminophen. Pediatric Patients older than 3 months: Maximum of 75 mg/kg/24 hours of acetaminophen (Never exceeding 4 grams/day). ceFAZolin (ANCEF) 2000 mg/20 mL sterile Given 08/15/2021 9:17 P M CDT 2,000 mg water IV syringe 2,000 mg, IV, Every eight hours, 3 doses, First dose on Arlyn 08/14/21 at 2300, Last dose on Wed08/15/21 at 2000, 20 mL, PACU - Continue Post-Op, Administer as IV push over 4 minutes. Given 08/15/2021 12:05 PM CDT 2,000 mg Given 08/14/2021 11:46 PM CDT 2,000 mg haloperidol lactate (HALDOL) injection Given 08/15/2021 2:51 PM CDT 1 mg solution 1 mg 1 mg, IV, Every six hours prn, Starting on Wed08/15/21 at 1417, Until 08/17/21 at 0854, agitation, 1 mL, Do not further dilute with 0.9% sodium chloride. If preference is to further dilute for IV administration: first draw up patient-specific dose, then dilute to 10ml with dextrose 5% water. Ok to flush with 0.9% Sodium Chloride. haloperidol lactate (HALDOL) injection Given 08/16/2021 8:23 PM CDT 2 mg solution 2 mg 2 mg, IV, Bedtime, First dose on Wed08/15/21 at 2100, Until Discontinued, 1 mL, Do not further dilute with 0.9% sodium chloride. If preference is to further dilute for IV administration: first draw up patient-specific dose, then dilute to 10ml with dextrose 5% water. Ok to flush with 0.9% Sodium Chloride. Given 08/15/2021 9:17 PM CDT 2 mg heparin (porcine) injection solution Given 08/13/2021 10:20 PM C DT 5,000 Units 5,000 Units 5,000 Units, Subcutaneous, Every eight hours, First dose on Wed08/13/21 at 2200, Until Discontinued, 1 mL HYDROmorphone (DILAUDID) injection solution Given 08/13/2021 3: 20 PM CDT 1 mg (conc: 1 mg/mL) 1 mg 1 mg, IV, Now, 1 dose, On Wed08/13/21 at 1455, 1 mL HYDROmorphone (DILAUDID) injection solution Given 08/13/2021 4: 32 PM CDT 1 mg (conc: 1 mg/mL) 1 mg 1 mg, IV, Now, 1 dose, On Wed08/13/21 at 1630, 1 mL lactated ringers IV solution Restarted 08/14/2021 5:34 PM CDT IV, at 25 mL/hr, Continuous, Starting on Arlyn 08/14/21 at 1100, Until Arlyn 08/14/21 at 1854, 1,000 mL, Pre - Op Now New Bag/Tubing 08/14/2021 11:08 AM CDT 25 mL/hr lactated ringers IV solution Already Infusing 08/14/2021 7:55 PM CDT 125 mL/hr IV, at 125 mL/hr, Continuous, Starting on Arlyn 08/14/21 at 1940, Until Arlyn 08/14/21 at 2030, 1,000 mL, PACU, TKO current fluids if patient is going to Day Unit / ARU and tolerating PO fluids without nausea. OLANZapine (zyPREXA) Given 08/15/2021 1:36 AM CDT 5 mg Right Vastus Lateralis injection solution 5 mg 5 mg, Intramuscular, Now, 1 dose, On Wed08/15/21 at 0130, 1 mL, Reconstitute with 2.1 ml Sterile Water Inj to yield 5 mg/ml. Obtain sterile water from [employer]. ondansetron (ZOFRAN) injection solution 4 mg Given 08/13/2021 3:31 PM CDT 4 mg 4 mg, IV, Now, 1 dose, On Wed08/13/21 at 1530, 2 mL, If preference is to further dilute for IV administration: First draw up patient-specific dose, then dilute to 10 mL with 0.9% sodium chloride. oxyCODONE (OXY-IR) tablet 5 mg Given 08/14/2021 11:52 PM CDT 5 mg 5 mg, Oral, Every six hours prn, Starting on Wed08/13/21 at 1942, Until Wed08/15/21 at 0920, moderate pain Given 08/14/2021 4:21 AM CDT 5 mg potassium phosphate 30 mmol in dextrose 5% Given 08/16 10:59 AM CDT 30 mmol 500 mL 30 mmol, IV, One time, 1 dose, On Wed08/16/21 at 1000, 500 mL, *15 mmol of kphos contains 22 meq of potassium. Maximum rate 10 meq/hr of potassium (6.8 mmol/hr) if patient is not on telemetry, and 20 meq/hr if patient is on telemetry (13.6 mmol/hr), please choose duration accordingly. potassium phosphate 30 mmol in dextrose 5% Given 08/17 12:16 PM CDT 30 mmol 500 mL 30 mmol, IV, One time, 1 dose, On Wed08/17/21 at 1100, 500 mL, *15 mmol of kphos contains 22 meq of potassium. Maximum rate 10 meq/hr of potassium (6.8 mmol/hr) if patient is not on telemetry, and 20 meq/hr if patient is on telemetry (13.6 mmol/hr), please choose duration accordingly. potassium phosphate 30 mmol in dextrose 5% Given 08/18 6:20 PM CDT 30 mmol 500 mL 30 mmol, IV, One time, 1 dose, On Wed08/18/21 at 1650, 500 mL, *15 mmol of kphos contains 22 meq of potassium. Maximum rate 10 meq/hr of potassium (6.8 mmol/hr) if patient is not on telemetry, and 20 meq/hr if patient is on telemetry (13.6 mmol/hr), please choose duration accordingly. potassium phosphates-sodium phosphates Given 08/19/2021 1:49 PM CDT 2 tablets (I-[id number]) tablet 2 tablet 2 tablet, Oral, Now, 1 dose, On Wed08/19/21 at 1215, Should be given with a full glass of water sodium chloride 0.9% IV solution New Bag 08/13/2021 8:33 PM CDT 100 mL/hr IV, at 100 mL/hr, Continuous, Starting on Wed08/13/21 at 1945, Until Wed08/15/21 at 0811, 1,000 mL sodium chloride 0.9% IV solution New Bag 08/15/2021 12:17 PM CDT 50 mL/hr IV, at 50 mL/hr, Continuous, Starting on Wed08/15/21 at 1250, Until Wed08/17/21 at 0853, 1,000 mL documented in this encounter Active and Recently Administered Medications Times are shown in CDT. Medication Order 08/18/2021 08/19/2021 08/20/2021 acetaminophen (TYLENOL) tablet 1,000 mg 0748 (Given - Provider: Mare Murillo RN)1513 (Given - Provider: Mare Murillo RN)2225 (Given - Provider: Francisco Dewey RN) 09 (Given - Provider: Tina Nunn, RN)1 506 (Given - Provider: Tina Nunn RN)2001 (Given - Provider: Mildred Niño RN) 0808 (Given - Provider: Emely Gonzalez, RAMANDEEP)1500 (Due)2100 (Due) 1,000 mg, Oral, Three times a day, First dose on Wed08/15/21 at 1500, Until Discontinued, Adult patients: Total dose of acetaminophen from all acetaminophen containing products should not exceed 4 grams (4000 mg) per day. Pediatric Patients 0 - 3 months: Maximum of 60 mg/kg/24 hours of acetaminophen. Pediatric Patients older than 3 months: Maximum of 75 mg/kg/24 hours of acetaminophen (Never exceeding 4 grams/day). atorvaSTATin (LIPITOR) tablet 20 mg 0744 (Given - Provider: Mare Murillo RN) 09 (Given - Provider: Tina Nunn RN) 0746 (Given - Provider: Emely Gonzalez, RAMANDEEP) 20 mg, Oral, DAILY, First dose on Wed08/14/21 at 0900, Until Dis continued budesonide (PULMICORT) 0.5 mg/2 mL inhalation soln 1 m g 0845 (Given - Provider: Jesse Robles, MARIA E)1999 (Unknown - Provider: Yosef Moore RRT - Reason: Other (See Comment) - Comment: transfer from [facility]) 0636 (Given - Provider: Yosef Moore, MARIA E)1856 (Given - Provider: Colt Teran, MARIA E) 0623 (Given - Provider: Veronica lagos RRT)1800 (Due - Provider: Colt Teran, MARIA E) 1 mg, Nebulization, Two times a day, Fir st dose on Wed08/13/21 at 2000, Until Discontinued, 4 mL enoxaparin (LOVENOX) subcutaneous injection solution 4 0 mg 0743 (Given - Provider: Mare Murillo RN) 09 (Given - Provider: Tina Nunn RN) 0743 (Given - Provider: Emely Gonzalez, RAMANDEEP) 40 mg, Subcutaneous, Daily, 28 doses, Fi rst dose on Wed08/15/21 at 0800, Last dose on Wed09/11/21 at 0800, Post - Op, Begin 0800 on first postop day. To avoid the loss of drug when using the 30 mg and 40 mg prefilled syringes, do not expel t he air bubble from the syringe before the injection. For ADULT patients: Administration should be alternated between the left and right anterolateral and left a nd right posterolateral abdominal wall. The whole length of the needle should be introduced into a skin fold held between the thumb and forefinger; the skin fold should be held throughout the injection. To minimize bruising, do not rub the in jection site after completion of the injection. For PEDIATRIC patients: Administration should be alternated between appropriate sites for patient age/weight (i nfants/small children = upper thigh; old er children/adolescents = left and right anterolateral and left and right posterolateral abdominal wall). During administration to infants/smaller children someti mes the whole length of the needle is no t "introduced" during the injection. Administer injection into a skin fold held between the thumb and forefinger; the skin fold should be held throughout the inje ction. To minimize bruising, do not rub the injection site after completion of the injection. escitalopram (LEXAPRO) tablet 10 mg 0744 (Given - Provider: Mare Murillo RN) 0902 (Given - Provider: Tina Nunn RN) 0746 (Given - Provider: Emely Gonzalez, RAMANDEEP) 10 mg, Oral, DAILY, First dose on Arlyn 08/14/21 at 0900, Until Dis continued lansoprazole (PREVACID) capsule 30 mg 0744 (Given - Provider : Mare Murillo RN) 0902 (Given - Provider: Tina Nunn RN) 0747 (Given - Provider: Emely Gonzalez, RAMANDEEP) 30 mg, Oral, Every morning, First dose o n Arlyn 08/14/21 at 0900, Until Discontinued, Capsules should be swallowed whole. For patients who have difficulty swallowing capsules, lansoprazole can be opened an d the intact granules can be sprinkled o n 1 tablespoon of applesauce and swallowed immediately. letrozole (FEMARA) tablet 2.5 mg 0743 (Given - Provider: Safia Murillo RN) 0902 (Given - Provider: Tina Nunn RN) 0748 (Given - Provider: Emely Gonzalez RN) 2.5 mg, Oral, DAILY, First dose on Wed at 0900, Until Discontinued, This medication is a high risk hazardous drug. Wear 2 pairs of chemo gloves for administration. If administering oral liquid o r sublingual, also wear a chemo gown and face shield if there is a possibility of splashing. If unable to administer dose intact - contact pharmacy or reference policy for other administration options. Dispose of empty packages in the yellow hazardous container. Dispose of unused or partial packages in the black waste container and label must be marked as containing chemotherapy as outlined by the region. levothyroxine tablet 25 mcg 2224 (Given - Provider: Francisco jacobo RN) 2002 (Given - Provider: Mildred Niño, RAMANDEEP) 2099 (Due) 25 mcg, Oral, Bedtime, First dose on Wed08/13/21 at 2100, Until Discontinued LORazepam (ATIVAN) 2 mg/mL injection solution 0.5 mg 0.5 mg, IV, One time, 1 dose, On 07/24 at 0110, 0.25 mL, If preference is to further dilute for IV administration: First draw up patient-specific dose, then dilute with EQUAL VOLUME of 0.9% sodium chloride melatonin tablet 6 mg 2224 (Given - Provider: Francisco Dewey RN) 2002 (Given - Provider: Mildred Niño, RAMANDEEP) 2099 (Due) 6 mg, Oral, Bedtime, First dose on Wed08/15/21 at 2100, Until Di scontinued metoprolol succinate (TOPROL XL) SR half-tablet (24 hr ) 12.5 mg 0842 (Given - Provider: Mare Murillo RN) 0849 (Not Given - Provider: Tina Nunn RN - Reason: Not Given) 0742 (Given - Provider: Emely Gonzalez , RAMANDEEP) 12.5 mg, Oral, DAILY, First dose on Wed08/14/21 at 0900, Until Discontinued, Tablet may be broken in half, but should not be crushed or chewed. montelukast (SINGULAIR) tablet 10 mg 0743 (Given - Provider: Mare Murillo RN) 0902 (Given - Provider: Tina Nunn RN) 0748 (Given - Provider: Emely Gonzalez, RAMANDEEP) 10 mg, Oral, Daily, First dose on Arlyn 08/14/21 at 0900, Until Dis continued polyethylene glycol (MIRALAX) packet 1 packet 0745 (Re fused - Provider: Mare Murillo RN) 0852 (Refused - Provider: Tina Nunn RN - Comment: having soft stool) 0810 (Refused - Provider: Emely martinez, RN) 1 packet, Oral, Daily, First dose on Wed08/15/21 at 0900, Until Discontinued, Post - Op, Hold if 2 loose stools occur in the last 24 hours. Do NOT give if patient on thickened liquids. Contact provider for alternative if needed. potassium chloride (KLOR-CON M20) CR tablet 20 mEq 074 4 (Given - Provider: Mare Murillo RN)2225 (Given - Provider: Francisco Dewey RN) 0902 (Given - Provider: Tina Nunn, RN)2002 (Given - Provider: Mildred Niño, RAMANDEEP) 0746 (Given - Provider: Emely Gonzalez RN)2100 (Due) 20 mEq, Oral, Two times a day, First dos e on Wed08/13/21 at 2100, Until Discontinued, Tablet may be broken in half, but should not be crushed or chewed. Tablet may be dissolved in 4 oz of water. DO NOT give via feeding tube route as this can clog the tube. potassium phosphate 30 mmol in dextrose 5% 500 mL (COM PLETED) 1820 (Given - Provider: Catie Trujillo RN) 0119 (Stopped Infusion - Provider: Rubina Dewey RN) 30 mmol, IV, One time, 1 dose, On Wed at 1650, 500 mL, *15 mmol of kphos contains 22 meq of potassium. Maximum rate 10 meq/hr of potassium (6.8 mmol/hr) if patient is not on telemetry, and 20 m eq/hr if patient is on telemetry (13.6 m mol/hr), please choose duration accordingly. potassium phosphates-sodium phosphates ( R-[id number]) tablet 2 tablet (COMPLETED) 1349 (Given - Provider: Tina Nunn, RN) 2 tablet, Oral, Now, 1 dose, On 08/19 at 1215, Should be given with a full glass of water senna-docusate sodium (SENOKOT-S;PERICOLACE) tablet 1 tablet 0744 (Given - Provider: Mare Murillo RN)2224 (Given - Provider: Francisco Dewey RN) 08 (Refused - Provider: Tina Nunn RN - Comment: Having soft stool)2003 (Refused - Provider: Mildred Niño RN) 08 (Refused - Provider: Emely martinez RN)2099 (Due) 1 tablet, Oral, Two times a day, First d ose on Wed08/14/21 at 2100, Until Discontinued, Post - Op, Hold if 2 loose stools occur in the last 24 hours. sodium chloride 0.9% flush (adult) 10 mL 0745 (Given - Provider: Mare Murillo RN)2228 (Not Given - Provider: Francisco Dewey RN - Reason: Other (See Comment) - Comment: pt has iv infusion) 09 (Given - Provider: Tina Nunn RN)2 (Given - Provider: Mildred Niño RN) 809 (Not Indicated - Provider: Emely Gonzalez RN - Comment: will remove)2099 (Due) 10 mL, IV, Two times a day and prn, Firs t dose on Wed08/13/21 at 2100, Until Discontinued, 10 mL, Flush PIV line as scheduled and as often as necessary before and after meds. Use a push / pause technique when flushing to create turbulence. spironolactone (ALDACTONE) tablet 12.5 mg 0744 (Given - Provider: Mare Murillo RN) 09 (Given - Provider: Tina Nunn RN) 0746 (Given - Provider: Emely Gonzalez RN) 12.5 mg, Oral, DAILY, First dose on Wed08/15/21 at 0900, Until Discontinued, Hold for SBP less than 100 If unable to administer dose intact, wear universal precautions (one pair of gloves). tamsulosin (FLOMAX) capsule 0.4 mg 0743 (Given - Provider: Florin Murillo RN) 0902 (Given - Provider: Tina Nunn RN) 0749 (Given - Provider: Emely Gonzalez RN) 0.4 mg, Oral, Daily, First dose on Wed at 1300, Until Discontinued, Swallow cap whole. Do not crush, chew or open. topiramate (TOPAMAX) tablet 25 mg 0744 (Given - Provider: Remington Murillo, RN) 09 (Given - Provider: Tina Nunn, RN) 0749 (Given - Provider: Emely Gonzalez , RAMANDEEP) 25 mg, Oral, Every morning, First dose o n Wed08/14/21 at 0900, Until Discontinued, Topamax tablets should be swallowed whole and should not be chewed due to bitter taste. They may be crushed, mixed with water, and given immediately. If unable to administer dose intact, wear universal precautions (one pair of gloves). topiramate (TOPAMAX) tablet 50 mg 2224 (Given - Provider: Sa linda Dewey, RN) 2006 (Given - Provider: Mildred Niño, RAMANDEEP) 2099 (Due) 50 mg, Oral, Bedtime, First dose on Wed08/13/21 at 2100, Until Discontinued, Topamax tablets should be swallowed whole and should not be chewed due to bitter taste. They may be crushed, mixed with water , and given immediately. If unable to ad community dietitian dose intact, wear universal precautions (one pair of gloves). umeclidinium (INCRUSE ELLIPTA) 62.5 mcg/puff inhaler 1 puff 0845 (Given - Provider: Jesse Robles, QUILL COLLECTOR) 1046 (Given - Provider: Colt seals, MARIA E) 0622 (Given - Provider: Veronica lagos, MARIA E) 1 puff, Inhalation, Daily, First dose on Wed08/14/21 at 0900, Until Discontinued, Formulary Substitute. With first dose, inform patient that this medication is being used in place of tiotropium (Spiriva) inhaler while inpatient. Medication Order 08/18/2021 08/19/2021 08/20/2021 bisacodyl (DULCOLAX) suppository 10 mg 10 mg, Rectal, One time a day prn, Start ing on Wed08/14/21 at 2050, Until Discontinued, constipation, Post - Op, Use second for constipation. If patient cannot take oral medications, use first for constipation. docusate sodium (THEREVAC-SB MINI;ENEMEEZ MINI) 283 MG enema 1 e nema 1 enema, Rectal, One time a day prn, Sta rting on Wed08/13/21 at 1940, Until Discontinued, constipation, Use THIRD for constipation - if no BM 8 hours after dulcolax suppository. If patient cannot take oral medications, use second for constipation. guaiFENesin (ROBITUSSIN) oral solution (100 mg/5 mL) 10 mL 1013 (Given - Provider: Emely Gonzalez RN) 10 mL, Oral, Every six hours prn, Starti ng on Wed08/19/21 at 1017, Until Discontinued, cough, 10 mL HYDROmorphone (DILAUDID) injection solution (conc: 0.5 mg/0.5mL) 0.5 mg 0.5 mg, IV, Every four hours prn, Starti ng on Wed08/13/21 at 1943, Until Discontinued, breakthrough pain, 0.5 mL nalOXone (NARCAN) injection solution (vial) 0.2 mg 0.2 mg, Injection, Every two minutes prn , Starting on Wed08/14/21 at 1859, Until Discontinued, other (Specify), opioid induced respiratory depression - PARTIAL reversal, 0.5 mL, PACU - Continue Post-Op, PARTIAL REVERSAL/RESPIRATORY DEPRESSION If respiratory rate less than 8/minute - call rapid response and administer (until respiratory rate increases to 10/minute). Give IV (preferred), IM or SUBQ nalOXone (NARCAN) injection solution (vial) 0.4 mg 0.4 mg, Injection, Every two minutes prn , Starting on Wed08/14/21 at 1859, Until Discontinued, other (Specify), opioid induced respiratory arrest - FULL reversal, 1 mL, PACU - Continue Post-Op, FULL REV ERSAL/RESPIRATORY ARREST If patient is n ot breathing - call CODE BLUE and administer. Give IV (preferred), IM or SUBQ ondansetron (ZOFRAN ODT) dispersible tablet 4 mg(Linked Group 1) 4 mg, Oral, Four times a day prn, Starti ng on Wed08/13/21 at 1940, Until Discontinued, nausea, vomiting, Use FIRST for nausea / vomiting. If ineffective after 30 minutes use ondansetron IV ondansetron (ZOFRAN) injection solution 4 mg(Linked Group 1) 4 mg, IV, Four times a day prn, Starting on Wed08/13/21 at 1940, Until Discontinued, nausea, vomiting, 2 mL, Use SECOND for nausea / vomiting. If ineffective after 30 minutes and ondansetron oral given , use metoclopramide IV If preference is to further dilute for IV administration: First draw up patient-specific dose, then dilute to 10 mL with 0.9% sodium chloride. oxyCODONE (OXY-IR) tablet 2.5 mg(Linked Group 2) 1357 (Given - Provider: Mare Murillo, RN)2034 (See Alternative - Provider: Linda Sotomayor, RN) 1154 (See Alternative - Provider: Tina Nunn, RN)2002 (Given - Provider: Mildred Niño, RN) 0448 (See Alternative - Provider: Mildred Niño, RN)1020 (See Alternative - Provider: Emely Gonzalez, RN) 2.5 mg, Oral, Every six hours prn, Start ing on Wed08/15/21 at 0920, Until Discontinued, moderate pain oxyCODONE (OXY-IR) tablet 5 mg(Linked Group 2) 1357 (S ee Alternative - Provider: Mare Murillo, RN)2034 (Given - Provider: Linda Sotomayor, RN) 1154 (Given - Provider: Tina Nunn, RN)2002 (See Alternative - Provider: Mildred Niño, RAMANDEEP) 0448 (Given - Provider: Mildred Niño, RN)1020 (Given - Provider: Emely Gonzalez, RN) 5 mg, Oral, Every six hours prn, Startin g on Wed08/15/21 at 0920, Until Discontinued, severe pain senna-docusate sodium (SENOKOT-S;PERICOLACE) tablet 1 tablet 1 tablet, Oral, Two times a day prn, Sta rting on Wed08/14/21 at 2050, Until Discontinued, constipation, Post - Op, Use first for constipation unless patient cannot take oral medications Order Group 1: ondansetron (ZOFRAN ODT) dispersible tablet 4 mgJump to med 4 mg, Oral, Four times a day prn, Starti ng on Wed08/13/21 at 1940, Until Discontinued, nausea, vomiting
Use FIRST for nausea / vomiting. If ineffective after 30 minutes use ondansetron IV
And ondansetron (ZOFRAN) injection solution 4 mgJump to med 4 mg, IV, Four times a day prn, Starting on Wed08/13/21 at 1940, Until Discontinued, nausea, vomiting, 2 mL
Use SECOND for nausea / vomiting. If ineffective after 30 minutes and ondan setron oral given, use metoclopramide IV If preference is to further dilute for IV administration: First draw up patient-specific dose, then dilute to 10 mL with 0.9% sodium chloride.
And metoclopramide (REGLAN) inj soln 5 mg (CANCELED) 5 mg, IV, Every eight hours prn, Startin g on Wed08/13/21 at 1940, Until Wed08/13/21 at 1943, nausea, vomiting, 1 mL
Use THIRD for nausea / vomiting. If ineffective after 30 minutes an d ondansetron oral and IV given, call pr ovider for alternative. If preference is to further dilute for IV administration: First draw up patient-specific dose, then dilute to 10 mL with 0.9% sodium chloride.
Group 2: oxyCODONE (OXY-IR) tablet 2.5 mgJump to med 2.5 mg, Oral, Every six hours prn, Start ing on Wed08/15/21 at 0920, Until Discontinued, moderate pain Or oxyCODONE (OXY-IR) tablet 5 mgJump to med 5 mg, Oral, Every six hours prn, Startin g on Wed08/15/21 at 0920, Until Discontinued, severe pain documented in this encounter
[2021-08-25] MEDS: Gabapentin 600 MG Tab PO SCH (17:45)
[2021-08-25] MEDS: Melatonin 3 MG Tab PO SCH (20:07)
[2021-08-25] MEDS: traZODone 50 MG Tab PO SCH (20:07)
[2021-08-25] MEDS: Levothyroxine 25 MCG Tab PO SCH (20:07)
[2021-08-26] MEDS: Pantoprazole 40 MG Tab.CR PO SCH (06:33)
[2021-08-26] MEDS: Celecoxib 200 MG Cap PO SCH ×2 (06:47→11:06)
[2021-08-26] MEDS: Spironolactone 25 MG Tab PO SCH ×2 (06:47→11:06)
[2021-08-26] MEDS: Potassium Chloride 20 MEQ Tab.ER PO SCH ×3 (06:48→17:47)
[2021-08-26] MEDS: oxyCODONE 5 MG Tab PO PRN ×3 (06:48→15:47)
[2021-08-26] MEDS: Metoprolol Succinate 25 MG Tab.ER PO SCH ×2 (06:49→11:09)
[2021-08-26] MEDS: Calcium Carbonate 500 MG Tablet PO SCH ×2 (06:49→11:08)
[2021-08-26] MEDS: Topiramate 50 MG Tab PO SCH ×3 (06:49→20:16)
[2021-08-26] MEDS: Acetaminophen 500 MG Tab PO SCH ×4 (06:49→20:16)
[2021-08-26] MEDS: atorvaSTATin 20 MG Tab PO SCH ×2 (06:49→11:07)
[2021-08-26] MEDS: Escitalopram 10 MG Tab PO SCH ×2 (06:49→11:07)
[2021-08-26] MEDS: Montelukast 10 MG Tab PO SCH ×2 (06:49→11:09)
[2021-08-26] MEDS: Gabapentin 300 MG Cap PO SCH ×2 (06:57→11:08)
[2021-08-26] MEDS: Arformoterol 15 MCG/2 ML Neb Soln INH SCH ×2 (11:06→20:13)
[2021-08-26] MEDS: Enoxaparin 40 MG/0.4 ML Syringe SUBCUT SCH (11:07)
[2021-08-26] MEDS: Budesonide 0.5 MG/2 ML Neb Susp INH SCH ×2 (11:08→20:16)
[2021-08-26] MEDS: Polyethylene Glycol 3350 Powder 17 GM Packet PO SCH (11:08)
[2021-08-26] MEDS: Tiotropium Bromide 4 GM Inhalation Spray (2.5mcg/1 dose; 10 doses) INH SCH (11:09)
[2021-08-26] MEDS: Gabapentin 600 MG Tab PO SCH (17:47)
[2021-08-26] MEDS: Melatonin 3 MG Tab PO SCH (20:15)
[2021-08-26] MEDS: Levothyroxine 25 MCG Tab PO SCH (20:15)
[2021-08-26] MEDS: traZODone 50 MG Tab PO SCH (20:16)
[2021-08-27] MEDS: Pantoprazole 40 MG Tab.CR PO SCH (06:58)
[2021-08-27] MEDS: oxyCODONE 5 MG Tab PO PRN ×3 (06:59→22:17)
[2021-08-27] MEDS: Spironolactone 25 MG Tab PO SCH (08:51)
[2021-08-27] MEDS: Celecoxib 200 MG Cap PO SCH (08:52)
[2021-08-27] MEDS: Potassium Chloride 20 MEQ Tab.ER PO SCH ×2 (08:54→18:17)
[2021-08-27] MEDS: Calcium Carbonate 500 MG Tablet PO SCH (08:55)
[2021-08-27] MEDS: atorvaSTATin 20 MG Tab PO SCH (08:55)
[2021-08-27] MEDS: Polyethylene Glycol 3350 Powder 17 GM Packet PO SCH (08:55)
[2021-08-27] MEDS: Montelukast 10 MG Tab PO SCH (08:56)
[2021-08-27] MEDS: Metoprolol Succinate 25 MG Tab.ER PO SCH (08:57)
[2021-08-27] MEDS: Budesonide 0.5 MG/2 ML Neb Susp INH SCH ×2 (08:58→21:04)
[2021-08-27] MEDS: Arformoterol 15 MCG/2 ML Neb Soln INH SCH ×2 (08:59→21:03)
[2021-08-27] MEDS: Enoxaparin 40 MG/0.4 ML Syringe SUBCUT SCH (09:00)
[2021-08-27] MEDS: Acetaminophen 500 MG Tab PO SCH ×3 (09:00→21:05)
[2021-08-27] MEDS: Escitalopram 10 MG Tab PO SCH (09:01)
[2021-08-27] MEDS: Tiotropium Bromide 4 GM Inhalation Spray (2.5mcg/1 dose; 10 doses) INH SCH (09:02)
[2021-08-27] MEDS: Gabapentin 300 MG Cap PO SCH (09:08)
[2021-08-27] MEDS: Topiramate 50 MG Tab PO SCH ×2 (10:41→21:03)
[2021-08-27] MEDS ORDERED: LEVALBUTEROL INH PRN (11:19)
[2021-08-27] MEDS: Gabapentin 600 MG Tab PO SCH (18:21)
[2021-08-27] MEDS: Melatonin 3 MG Tab PO SCH (21:03)
[2021-08-27] MEDS: Levothyroxine 25 MCG Tab PO SCH (21:04)
[2021-08-27] MEDS: traZODone 50 MG Tab PO SCH (21:05)
[2021-08-28] MEDS: Pantoprazole 40 MG Tab.CR PO SCH (06:43)
[2021-08-28] MEDS: Budesonide 0.5 MG/2 ML Neb Susp INH SCH ×2 (08:15→20:16)
[2021-08-28] MEDS: Arformoterol 15 MCG/2 ML Neb Soln INH SCH ×2 (08:15→20:16)
[2021-08-28] MEDS: Spironolactone 25 MG Tab PO SCH (09:09)
[2021-08-28] MEDS: Celecoxib 200 MG Cap PO SCH (09:10)
[2021-08-28] MEDS: Potassium Chloride 20 MEQ Tab.ER PO SCH ×2 (09:11→17:53)
[2021-08-28] MEDS: Escitalopram 10 MG Tab PO SCH (09:11)
[2021-08-28] MEDS: atorvaSTATin 20 MG Tab PO SCH (09:11)
[2021-08-28] MEDS: Enoxaparin 40 MG/0.4 ML Syringe SUBCUT SCH (09:12)
[2021-08-28] MEDS: Calcium Carbonate 500 MG Tablet PO SCH (09:12)
[2021-08-28] MEDS: Topiramate 50 MG Tab PO SCH ×2 (09:20→20:15)
[2021-08-28] MEDS: Montelukast 10 MG Tab PO SCH (09:20)
[2021-08-28] MEDS: Tiotropium Bromide 4 GM Inhalation Spray (2.5mcg/1 dose; 10 doses) INH SCH (09:20)
[2021-08-28] MEDS: Metoprolol Succinate 25 MG Tab.ER PO SCH (09:21)
[2021-08-28] MEDS: Polyethylene Glycol 3350 Powder 17 GM Packet PO SCH (09:22)
[2021-08-28] MEDS: Acetaminophen 500 MG Tab PO SCH ×3 (09:22→20:15)
[2021-08-28] MEDS: Gabapentin 300 MG Cap PO SCH (09:25)
[2021-08-28] MEDS: oxyCODONE 5 MG Tab PO PRN ×2 (10:25→16:34)
[2021-08-28] MEDS: Gabapentin 600 MG Tab PO SCH (17:56)
[2021-08-28] MEDS: Melatonin 3 MG Tab PO SCH (20:14)
[2021-08-28] MEDS: traZODone 50 MG Tab PO SCH (20:15)
[2021-08-28] MEDS: Levothyroxine 25 MCG Tab PO SCH (20:15)
[2021-08-29] MEDS: oxyCODONE 5 MG Tab PO PRN ×3 (03:53→17:29)
[2021-08-29] MEDS: Pantoprazole 40 MG Tab.CR PO SCH (06:42)
[2021-08-29] MEDS: Potassium Chloride 20 MEQ Tab.ER PO SCH ×2 (09:01→17:24)
[2021-08-29] MEDS: Calcium Carbonate 500 MG Tablet PO SCH (09:09)
[2021-08-29] MEDS: Arformoterol 15 MCG/2 ML Neb Soln INH SCH ×2 (09:09→20:19)
[2021-08-29] MEDS: Montelukast 10 MG Tab PO SCH (09:10)
[2021-08-29] MEDS: Celecoxib 200 MG Cap PO SCH (09:10)
[2021-08-29] MEDS: Escitalopram 10 MG Tab PO SCH (09:11)
[2021-08-29] MEDS: atorvaSTATin 20 MG Tab PO SCH (09:12)
[2021-08-29] MEDS: Enoxaparin 40 MG/0.4 ML Syringe SUBCUT SCH (09:12)
[2021-08-29] MEDS: Polyethylene Glycol 3350 Powder 17 GM Packet PO SCH (09:15)
[2021-08-29] MEDS: Tiotropium Bromide 4 GM Inhalation Spray (2.5mcg/1 dose; 10 doses) INH SCH (09:17)
[2021-08-29] MEDS: Topiramate 50 MG Tab PO SCH ×2 (09:18→20:19)
[2021-08-29] MEDS: Acetaminophen 500 MG Tab PO SCH ×3 (09:19→20:20)
[2021-08-29] MEDS: Metoprolol Succinate 25 MG Tab.ER PO SCH (09:21)
[2021-08-29] MEDS: Gabapentin 300 MG Cap PO SCH (09:25)
[2021-08-29] MEDS: Budesonide 0.5 MG/2 ML Neb Susp INH SCH ×2 (09:27→20:19)
[2021-08-29] MEDS: Spironolactone 25 MG Tab PO SCH (13:10)
[2021-08-29] MEDS: Gabapentin 600 MG Tab PO SCH (17:28)
[2021-08-29] MEDS: Melatonin 3 MG Tab PO SCH (20:19)
[2021-08-29] MEDS: Levothyroxine 25 MCG Tab PO SCH (20:20)
[2021-08-29] MEDS: traZODone 50 MG Tab PO SCH (20:20)
[2021-08-30] MEDS: oxyCODONE 5 MG Tab PO PRN ×2 (03:36→09:43)
[2021-08-30] MEDS: Pantoprazole 40 MG Tab.CR PO SCH (06:55)
[2021-08-30] MEDS: Topiramate 50 MG Tab PO SCH ×2 (09:03→20:07)
[2021-08-30] MEDS: Acetaminophen 500 MG Tab PO SCH ×3 (09:04→20:07)
[2021-08-30] MEDS: Metoprolol Succinate 25 MG Tab.ER PO SCH (09:05)
[2021-08-30] MEDS: Arformoterol 15 MCG/2 ML Neb Soln INH SCH ×2 (09:05→20:07)
[2021-08-30] MEDS: atorvaSTATin 20 MG Tab PO SCH (09:06)
[2021-08-30] MEDS: Celecoxib 200 MG Cap PO SCH (09:07)
[2021-08-30] MEDS: Montelukast 10 MG Tab PO SCH (09:07)
[2021-08-30] MEDS: Potassium Chloride 20 MEQ Tab.ER PO SCH ×2 (09:08→18:39)
[2021-08-30] MEDS: Escitalopram 10 MG Tab PO SCH (09:08)
[2021-08-30] MEDS: Enoxaparin 40 MG/0.4 ML Syringe SUBCUT SCH (09:08)
[2021-08-30] MEDS: Polyethylene Glycol 3350 Powder 17 GM Packet PO SCH (09:09)
[2021-08-30] MEDS: Calcium Carbonate 500 MG Tablet PO SCH (09:09)
[2021-08-30] MEDS: Gabapentin 300 MG Cap PO SCH (09:09)
[2021-08-30] MEDS: Budesonide 0.5 MG/2 ML Neb Susp INH SCH ×2 (09:10→20:07)
[2021-08-30] MEDS: Tiotropium Bromide 4 GM Inhalation Spray (2.5mcg/1 dose; 10 doses) INH SCH ×2 (09:10→09:44)
[2021-08-30] MEDS: Gabapentin 600 MG Tab PO SCH (18:39)
[2021-08-30] MEDS: Melatonin 3 MG Tab PO SCH (20:07)
[2021-08-30] MEDS: traZODone 50 MG Tab PO SCH (20:07)
[2021-08-30] MEDS: Levothyroxine 25 MCG Tab PO SCH (20:07)
[2021-08-30] MEDS: Levalbuterol HCl 1.25 MG/3 ML Neb INH PRN (23:19)
[2021-08-30] MEDS: guaiFENesin 100 MG/5 ML Soln 5 ML UD Cup PO PRN (23:38)
[2021-08-31] MEDS: Pantoprazole 40 MG Tab.CR PO SCH (06:41)
[2021-08-31] MEDS: Gabapentin 300 MG Cap PO SCH (08:01)
[2021-08-31] MEDS: Acetaminophen 500 MG Tab PO SCH ×3 (08:01→20:14)
[2021-08-31] MEDS: Metoprolol Succinate 25 MG Tab.ER PO SCH (08:02)
[2021-08-31] MEDS: Topiramate 50 MG Tab PO SCH ×2 (08:03→20:14)
[2021-08-31] MEDS: atorvaSTATin 20 MG Tab PO SCH (08:04)
[2021-08-31] MEDS: Calcium Carbonate 500 MG Tablet PO SCH (08:04)
[2021-08-31] MEDS: Celecoxib 200 MG Cap PO SCH (08:05)
[2021-08-31] MEDS: Escitalopram 10 MG Tab PO SCH (08:05)
[2021-08-31] MEDS: Montelukast 10 MG Tab PO SCH (08:05)
[2021-08-31] MEDS: Potassium Chloride 20 MEQ Tab.ER PO SCH ×2 (08:06→17:52)
[2021-08-31] MEDS: Enoxaparin 40 MG/0.4 ML Syringe SUBCUT SCH (08:07)
[2021-08-31] MEDS: Budesonide 0.5 MG/2 ML Neb Susp INH SCH ×2 (08:07→20:14)
[2021-08-31] MEDS: Tiotropium Bromide 4 GM Inhalation Spray (2.5mcg/1 dose; 10 doses) INH SCH (08:07)
[2021-08-31] MEDS: Arformoterol 15 MCG/2 ML Neb Soln INH SCH ×2 (08:07→20:14)
[2021-08-31] MEDS: Spironolactone 25 MG Tab PO SCH (08:08)
[2021-08-31] MEDS: Polyethylene Glycol 3350 Powder 17 GM Packet PO SCH (08:08)
--- NOTE | 2021-08-31 08:10 | PCM.PN ---
- General Info Date of Service: 08/31/21 Admission Dx/Problem (Free Text): Patient is without any concerns. She says her pain is controlled. She denies chest pain, fevers, chills, cough. She states rehabilitation is going well. - Patient Data Vitals - Most Recent: Last Vital Signs Temp 97.7 F 08/31/21 07:57 Pulse 71 08/31/21 08:02 Resp 19 08/31/21 07:57 BP 115/52 L 08/31/21 08:02 Pulse Ox 94 L 08/31/21 07:57 Weight - Most Recent: 221 lb 8 oz Med Orders - Current: Current Medications Acetaminophen (Acetaminophen 500 Mg Tab) 1,000 mg PO TID [facility] Last Admin: 08/31/21 08:01 Dose: 1,000 mg Documented by: Arformoterol Tartrate (Arformoterol 15 Mcg/2 Ml Neb Soln) 15 mcg INH BID [facility] Last Admin: 08/31/21 08:07 Dose: 15 mcg Documented by: Aspirin (Aspirin 81 Mg Tab.Ec) 81 mg PO DAILY [facility] Atorvastatin Calcium (Atorvastatin 20 Mg Tab) 20 mg PO DAILY [facility] Last Admin: 08/31/21 08:04 Dose: 20 mg Documented by: Bisacodyl (Bisacodyl 10 Mg Supp) 10 mg RECTAL DAILY PRN PRN Reason: Constipation Last Admin: 08/24/21 09:40 Dose: 10 mg Documented by: Budesonide (Budesonide 0.5 Mg/2 Ml Neb Susp) 0.5 mg INH BID [facility] Last Admin: 08/31/21 08:07 Dose: 0.5 mg Documented by: Calcium Carbonate/Glycine (Calcium Carbonate 500 Mg Tablet) 500 mg PO DAILY [facility] Last Admin: 08/31/21 08:04 Dose: 500 mg Documented by: Celecoxib (Celecoxib 200 Mg Cap) 400 mg PO DAILY [facility] Last Admin: 08/31/21 08:05 Dose: 400 mg Documented by: Enoxaparin Sodium (Enoxaparin 40 Mg/0.4 Ml Syringe) 40 mg SUBCUT Q24H [facility] Stop: 09/11/21 23:59 Last Admin: 08/31/21 08:07 Dose: 40 mg Documented by: Escitalopram Oxalate (Escitalopram 10 Mg Tab) 10 mg PO DAILY [facility] Last Admin: 08/31/21 08:05 Dose: 10 mg Documented by: Gabapentin (Gabapentin 300 Mg Cap) 300 mg PO DAILY [facility] Last Admin: 08/31/21 08:01 Dose: 300 mg Documented by: Gabapentin (Gabapentin 600 Mg Tab) 600 mg PO WITHDINNER [facility] Last Admin: 08/30/21 18:39 Dose: 600 mg Documented by: Guaifenesin (Guaifenesin 100 Mg/5 Ml Soln 5 Ml Ud Cup) 200 mg PO Q6H PRN PRN Reason: Cough Last Admin: 08/30/21 23:38 Dose: 200 mg Documented by: Letrozole (Letrozole 2.5 Mg Tab) 2.5 mg PO DAILY [facility] Last Admin: 08/31/21 08:03 Dose: 2.5 mg Documented by: Levalbuterol HCl (Levalbuterol Hcl 1.25 Mg/3 Ml Neb) 1.25 mg INH Q4H PRN PRN Reason: Shortness of Breath Last Admin: 08/30/21 23:19 Dose: 1.25 mg Documented by: Levothyroxine Sodium (Levothyroxine 25 Mcg Tab) 25 mcg PO BEDTIME [facility] Last Admin: 08/30/21 20:07 Dose: 25 mcg Documented by: Melatonin (Melatonin 3 Mg Tab) 6 mg PO BEDTIME [facility] Last Admin: 08/30/21 20:07 Dose: 6 mg Documented by: Metoprolol Succinate (Metoprolol Succinate 25 Mg Tab.Er) 12.5 mg PO DAILY [facility] Last Admin: 08/31/21 08:02 Dose: 12.5 mg Documented by: Montelukast Sodium (Montelukast 10 Mg Tab) 10 mg PO DAILY [facility] Last Admin: 08/31/21 08:05 Dose: 10 mg Documented by: Naloxone HCl (Naloxone 0.4 Mg/Ml Sdv) 0.4 mg IV ASDIRECTED PRN PRN Reason: Other Levalbtuerol Inhaler (*Ptom) 0 each INH Q4H PRN PRN Reason: SHORTNESS OF BREATH Oxycodone HCl (Oxycodone 5 Mg Tab) 2.5 mg PO Q6H PRN PRN Reason: Pain (moderate 4-6) Last Admin: 08/30/21 09:43 Dose: 2.5 mg Documented by: Oxycodone HCl (Oxycodone 5 Mg Tab) 5 mg PO Q6H PRN PRN Reason: Pain (severe 7-10) Last Admin: 08/29/21 17:29 Dose: 5 mg Documented by: Pantoprazole Sodium (Pantoprazole 40 Mg Tab.Cr) 40 mg PO ACBREAKFAST [facility] Last Admin: 08/31/21 06:41 Dose: 40 mg Documented by: Polyethylene Glycol (Polyethylene Glycol 3350 Powder 17 Gm Packet) 17 gm PO DAILY [facility] Last Admin: 08/30/21 09:09 Dose: Not Given Documented by: Potassium Chloride (Potassium Chloride 20 Meq Tab.Er) 20 meq PO DAILY [facility] Last Admin: 08/31/21 08:06 Dose: 20 meq Documented by: Potassium Chloride (Potassium Chloride 20 Meq Tab.Er) 40 meq PO WITHDINNER [facility] Last Admin: 08/30/21 18:39 Dose: 40 meq Documented by: Senna/Docusate Sodium (Docusate Sodium/Sennosides 50-8.6 Mg Tab) 1 tab PO BID [facility] Last Admin: 08/30/21 20:15 Dose: Not Given Documented by: Spironolactone (Spironolactone 25 Mg Tab) 12.5 mg PO DAILY [facility] Last Admin: 08/29/21 13:10 Dose: Not Given Documented by: Sumatriptan Succinate (Sumatriptan 50 Mg Tab) 100 mg PO ASDIRECTED PRN PRN Reason: HEADACHE Tiotropium [place] (Tiotropium [place] 4 Gm Inhalation [place] (2.5mcg/1 Dose; 10 Doses)) 0 gm INH DAILY [facility] Last Admin: 08/31/21 08:07 Dose: 2 spray Documented by: Topiramate (Topiramate 50 Mg Tab) 50 mg PO BEDTIME [facility] Last Admin: 08/30/21 20:07 Dose: 50 mg Documented by: Topiramate (Topiramate 50 Mg Tab) 25 mg PO DAILY [facility] Last Admin: 08/31/21 08:03 Dose: 25 mg Documented by: Trazodone HCl (Trazodone 50 Mg Tab) 50 mg PO BEDTIME [facility] Last Admin: 08/30/21 20:07 Dose: 50 mg Documented by: Discontinued Medications Albuterol (Albuterol 8 Gm Inhaler) 0 gm INH Q4H PRN PRN Reason: Dyspnea Last Admin: 08/23/21 21:55 Dose: 2 puff Documented by: Albuterol (Albuterol 8 Gm Inhaler) 0 gm INH Q4H PRN PRN Reason: Dyspnea Influenza Virus Vaccine (Flu Vacc [id number](6mos Up)/Pf 60 Mcg/0.5 Ml Syringe) 60 mcg IM .ONCE ONE Stop: 08/22/21 09:16 Last Admin: 08/22/21 15:52 Dose: 60 mcg Documented by: Non-Formulary Medication (Azelastine Hcl [Azelastine Hcl]) 2 spray NASBOTH DAILY [facility] Sumatriptan Succinate (Sumatriptan 50 Mg Tab) 100 mg PO DAILY PRN PRN Reason: HEADACHE Last Admin: 08/21/21 02:29 Dose: 100 mg Documented by: - Exam General: Alert, Oriented, Cooperative Neck: Supple Lungs: Clear to Auscultation, Normal Respiratory Effort Cardiovascular: Regular Rate, Regular Rhythm, No Murmurs - Patient Data Result Diagrams: 08/23/21 06:20 08/23/21 06:20 Sepsis Event Note - Evaluation Sepsis Screening Result: No Definite Risk - Focused Exam Vital Signs: Vital Signs Temp Pulse Pulse Resp BP BP Pulse Ox 08/31/21 08:02 71 115/52 L 08/31/21 07:57 97.7 F 71 19 115/52 L 94 L 08/30/21 23:19 64 - Problem List & Annotations (1) Acute blood loss anemia SNOMED Code(s): 608243070 Code(s): D62 - ACUTE POSTHEMORRHAGIC ANEMIA Status: Acute Current Visit: Yes (2) Arm fracture, left SNOMED Code(s): 14347730 Code(s): S42.302A - UNSP FRACTURE OF SHAFT OF HUMERUS, LEFT ARM, INIT Status: Acute Current Visit: Yes (3) Closed left hip fracture SNOMED Code(s): 497436534 Code(s): S72.002A - FRACTURE OF UNSP PART OF NECK OF LEFT FEMUR, INIT Status: Acute Current Visit: Yes (4) Status post open reduction and internal fixation (ORIF) of fracture SNOMED Code(s): 891257930 Code(s): Z98.890 - OTHER SPECIFIED POSTPROCEDURAL STATES; Z87.81 - PERSONAL HISTORY OF (HEALED) TRAUMATIC FRACTURE Status: Acute Current Visit: Yes (5) Weakness SNOMED Code(s): 74278806 Code(s): R53.1 - WEAKNESS Status: Acute Current Visit: Yes (6) Arrhythmia SNOMED Code(s): 982145924 Code(s): I49.9 - CARDIAC ARRHYTHMIA, UNSPECIFIED Status: Chronic Current Visit: Yes (7) Asthma SNOMED Code(s): 585424039 Code(s): J45.909 - UNSPECIFIED ASTHMA, UNCOMPLICATED Status: Chronic Current Visit: Yes (8) Hyperlipidemia SNOMED Code(s): 84021585 Code(s): E78.5 - HYPERLIPIDEMIA, UNSPECIFIED Status: Chronic Current Visit: Yes (9) Hypothyroidism SNOMED Code(s): 50572625 Code(s): E03.9 - HYPOTHYROIDISM, UNSPECIFIED Status: Chronic Current Visit: Yes (10) Obesity (BMI 30.0-34.9) SNOMED Code(s): 074843598197035 Code(s): E66.9 - OBESITY, UNSPECIFIED Status: Chronic Current Visit: Yes - Problem List Review Problem List Initiated/Reviewed/Updated: Yes - Plan Plan:: 1. Patient has when she is to go home. I told her that was up to therapy. I really to the patient that when she is able to manage with her short-term disability is at home and she would get to go home. 2. Medically she is stable so continue current care.
[2021-08-31] MEDS: Gabapentin 600 MG Tab PO SCH (17:51)
[2021-08-31] MEDS: Levothyroxine 25 MCG Tab PO SCH (20:14)
[2021-08-31] MEDS: traZODone 50 MG Tab PO SCH (20:14)
[2021-08-31] MEDS: Melatonin 3 MG Tab PO SCH (20:14)
[2021-09-01] MEDS: SUMAtriptan 50 MG Tab PO PRN (03:26)
[2021-09-01] MEDS: Pantoprazole 40 MG Tab.CR PO SCH (06:30)
[2021-09-01] MEDS: Budesonide 0.5 MG/2 ML Neb Susp INH SCH ×2 (10:04→20:36)
[2021-09-01] MEDS: Tiotropium Bromide 4 GM Inhalation Spray (2.5mcg/1 dose; 10 doses) INH SCH (10:05)
[2021-09-01] MEDS: Enoxaparin 40 MG/0.4 ML Syringe SUBCUT SCH (10:05)
[2021-09-01] MEDS: Acetaminophen 500 MG Tab PO SCH ×3 (10:06→20:38)
[2021-09-01] MEDS: Arformoterol 15 MCG/2 ML Neb Soln INH SCH ×2 (10:06→20:36)
[2021-09-01] MEDS: Escitalopram 10 MG Tab PO SCH (10:06)
[2021-09-01] MEDS: Spironolactone 25 MG Tab PO SCH (10:06)
[2021-09-01] MEDS: Montelukast 10 MG Tab PO SCH (10:07)
[2021-09-01] MEDS: Celecoxib 200 MG Cap PO SCH (10:07)
[2021-09-01] MEDS: Topiramate 50 MG Tab PO SCH ×2 (10:07→20:37)
[2021-09-01] MEDS: atorvaSTATin 20 MG Tab PO SCH (10:08)
[2021-09-01] MEDS: Polyethylene Glycol 3350 Powder 17 GM Packet PO SCH (10:09)
[2021-09-01] MEDS: Potassium Chloride 20 MEQ Tab.ER PO SCH ×2 (10:09→18:19)
[2021-09-01] MEDS: Calcium Carbonate 500 MG Tablet PO SCH (10:10)
[2021-09-01] MEDS: Gabapentin 300 MG Cap PO SCH (10:14)
[2021-09-01] MEDS: Metoprolol Succinate 25 MG Tab.ER PO SCH (11:17)
[2021-09-01] MEDS: Gabapentin 600 MG Tab PO SCH (18:21)
[2021-09-01] MEDS: Levothyroxine 25 MCG Tab PO SCH (20:36)
[2021-09-01] MEDS: Melatonin 3 MG Tab PO SCH (20:36)
[2021-09-01] MEDS: traZODone 50 MG Tab PO SCH (20:38)
[2021-09-01] MEDS: oxyCODONE 5 MG Tab PO PRN (22:37)
[2021-09-02] MEDS: Pantoprazole 40 MG Tab.CR PO SCH (06:35)
[2021-09-02] MEDS: SUMAtriptan 50 MG Tab PO PRN (06:37)
--- NOTE | 2021-09-02 08:18 | PCM.PN ---
- General Info Date of Service: 09/02/21 Admission Dx/Problem (Free Text): Has no concerns. She wants to go home and is lined up home health and help at home. Pain is under control with Tylenol. - Patient Data Vitals - Most Recent: Last Vital Signs Temp 98.6 F 09/02/21 07:34 Pulse 59 L 09/02/21 07:34 Resp 18 09/02/21 07:34 BP 133/83 09/02/21 07:34 Pulse Ox 95 09/02/21 07:34 Weight - Most Recent: 221 lb 8 oz Med Orders - Current: Current Medications Acetaminophen (Acetaminophen 500 Mg Tab) 1,000 mg PO TID [facility] Last Admin: 09/01/21 20:38 Dose: 1,000 mg Documented by: Arformoterol Tartrate (Arformoterol 15 Mcg/2 Ml Neb Soln) 15 mcg INH BID [facility] Last Admin: 09/01/21 20:36 Dose: 15 mcg Documented by: Aspirin (Aspirin 81 Mg Tab.Ec) 81 mg PO DAILY [facility] Atorvastatin Calcium (Atorvastatin 20 Mg Tab) 20 mg PO DAILY [facility] Last Admin: 09/01/21 10:08 Dose: 20 mg Documented by: Bisacodyl (Bisacodyl 10 Mg Supp) 10 mg RECTAL DAILY PRN PRN Reason: Constipation Last Admin: 08/24/21 09:40 Dose: 10 mg Documented by: Budesonide (Budesonide 0.5 Mg/2 Ml Neb Susp) 0.5 mg INH BID [facility] Last Admin: 09/01/21 20:36 Dose: 0.5 mg Documented by: Calcium Carbonate/Glycine (Calcium Carbonate 500 Mg Tablet) 500 mg PO DAILY [facility] Last Admin: 09/01/21 10:10 Dose: 500 mg Documented by: Celecoxib (Celecoxib 200 Mg Cap) 400 mg PO DAILY [facility] Last Admin: 09/01/21 10:07 Dose: 400 mg Documented by: Enoxaparin Sodium (Enoxaparin 40 Mg/0.4 Ml Syringe) 40 mg SUBCUT Q24H [facility] Stop: 09/11/21 23:59 Last Admin: 09/01/21 10:05 Dose: 40 mg Documented by: Escitalopram Oxalate (Escitalopram 10 Mg Tab) 10 mg PO DAILY [facility] Last Admin: 09/01/21 10:06 Dose: 10 mg Documented by: Gabapentin (Gabapentin 300 Mg Cap) 300 mg PO DAILY [facility] Last Admin: 09/01/21 10:14 Dose: Not Given Documented by: Gabapentin (Gabapentin 600 Mg Tab) 600 mg PO WITHDINNER [facility] Last Admin: 09/01/21 18:21 Dose: 600 mg Documented by: Guaifenesin (Guaifenesin 100 Mg/5 Ml Soln 5 Ml Ud Cup) 200 mg PO Q6H PRN PRN Reason: Cough Last Admin: 08/30/21 23:38 Dose: 200 mg Documented by: Letrozole (Letrozole 2.5 Mg Tab) 2.5 mg PO DAILY [facility] Last Admin: 09/01/21 10:08 Dose: 2.5 mg Documented by: Levalbuterol HCl (Levalbuterol Hcl 1.25 Mg/3 Ml Neb) 1.25 mg INH Q4H PRN PRN Reason: Shortness of Breath Last Admin: 08/30/21 23:19 Dose: 1.25 mg Documented by: Levothyroxine Sodium (Levothyroxine 25 Mcg Tab) 25 mcg PO BEDTIME [facility] Last Admin: 09/01/21 20:36 Dose: 25 mcg Documented by: Melatonin (Melatonin 3 Mg Tab) 6 mg PO BEDTIME [facility] Last Admin: 09/01/21 20:36 Dose: 6 mg Documented by: Metoprolol Succinate (Metoprolol Succinate 25 Mg Tab.Er) 12.5 mg PO DAILY [facility] Last Admin: 09/01/21 11:17 Dose: 12.5 mg Documented by: Montelukast Sodium (Montelukast 10 Mg Tab) 10 mg PO DAILY [facility] Last Admin: 09/01/21 10:07 Dose: 10 mg Documented by: Naloxone HCl (Naloxone 0.4 Mg/Ml Sdv) 0.4 mg IV ASDIRECTED PRN PRN Reason: Other Levalbtuerol Inhaler (*Ptom) 0 each INH Q4H PRN PRN Reason: SHORTNESS OF BREATH Oxycodone HCl (Oxycodone 5 Mg Tab) 2.5 mg PO Q6H PRN PRN Reason: Pain (moderate 4-6) Last Admin: 09/01/21 22:37 Dose: 2.5 mg Documented by: Oxycodone HCl (Oxycodone 5 Mg Tab) 5 mg PO Q6H PRN PRN Reason: Pain (severe 7-10) Last Admin: 08/29/21 17:29 Dose: 5 mg Documented by: Pantoprazole Sodium (Pantoprazole 40 Mg Tab.Cr) 40 mg PO ACBREAKFAST [facility] Last Admin: 09/02/21 06:35 Dose: 40 mg Documented by: Polyethylene Glycol (Polyethylene Glycol 3350 Powder 17 Gm Packet) 17 gm PO DAILY [facility] Last Admin: 09/01/21 10:09 Dose: Not Given Documented by: Potassium Chloride (Potassium Chloride 20 Meq Tab.Er) 20 meq PO DAILY [facility] Last Admin: 09/01/21 10:09 Dose: 20 meq Documented by: Potassium Chloride (Potassium Chloride 20 Meq Tab.Er) 40 meq PO WITHDINNER [facility] Last Admin: 09/01/21 18:19 Dose: 40 meq Documented by: Senna/Docusate Sodium (Docusate Sodium/Sennosides 50-8.6 Mg Tab) 1 tab PO BID [facility] Last Admin: 09/01/21 20:36 Dose: 1 tab Documented by: Spironolactone (Spironolactone 25 Mg Tab) 12.5 mg PO DAILY [facility] Last Admin: 09/01/21 10:06 Dose: Not Given Documented by: Sumatriptan Succinate (Sumatriptan 50 Mg Tab) 100 mg PO ASDIRECTED PRN PRN Reason: HEADACHE Last Admin: 09/02/21 06:37 Dose: 100 mg Documented by: Tiotropium [place] (Tiotropium [place] 4 Gm Inhalation [place] (2.5mcg/1 Dose; 10 Doses)) 0 gm INH DAILY [facility] Last Admin: 09/01/21 10:05 Dose: 2 spray Documented by: Topiramate (Topiramate 50 Mg Tab) 50 mg PO BEDTIME [facility] Last Admin: 09/01/21 20:37 Dose: 50 mg Documented by: Topiramate (Topiramate 50 Mg Tab) 25 mg PO DAILY [facility] Last Admin: 09/01/21 10:07 Dose: 25 mg Documented by: Trazodone HCl (Trazodone 50 Mg Tab) 50 mg PO BEDTIME [facility] Last Admin: 09/01/21 20:38 Dose: 50 mg Documented by: Discontinued Medications Albuterol (Albuterol 8 Gm Inhaler) 0 gm INH Q4H PRN PRN Reason: Dyspnea Last Admin: 08/23/21 21:55 Dose: 2 puff Documented by: Albuterol (Albuterol 8 Gm Inhaler) 0 gm INH Q4H PRN PRN Reason: Dyspnea Influenza Virus Vaccine (Flu Vacc [id number](6mos Up)/Pf 60 Mcg/0.5 Ml Syringe) 60 mcg IM .ONCE ONE Stop: 08/22/21 09:16 Last Admin: 08/22/21 15:52 Dose: 60 mcg Documented by: Non-Formulary Medication (Azelastine Hcl [Azelastine Hcl]) 2 spray NASBOTH DAILY [facility] Sumatriptan Succinate (Sumatriptan 50 Mg Tab) 100 mg PO DAILY PRN PRN Reason: HEADACHE Last Admin: 08/21/21 02:29 Dose: 100 mg Documented by: - Exam General: Alert, Oriented - Patient Data Result Diagrams: 08/23/21 06:20 08/23/21 06:20 Sepsis Event Note - Evaluation Sepsis Screening Result: No Definite Risk - Focused Exam Vital Signs: Vital Signs Temp Pulse Resp BP Pulse Ox 09/02/21 07:34 98.6 F 59 L 18 133/83 95 - Problem List & Annotations (1) Acute blood loss anemia SNOMED Code(s): 440712047 Code(s): D62 - ACUTE POSTHEMORRHAGIC ANEMIA Status: Acute Current Visit: Yes (2) Arm fracture, left SNOMED Code(s): 53681001 Code(s): S42.302A - UNSP FRACTURE OF SHAFT OF HUMERUS, LEFT ARM, INIT Status: Acute Current Visit: Yes (3) Closed left hip fracture SNOMED Code(s): 239568769 Code(s): S72.002A - FRACTURE OF UNSP PART OF NECK OF LEFT FEMUR, INIT Status: Acute Current Visit: Yes (4) Status post open reduction and internal fixation (ORIF) of fracture SNOMED Code(s): 608403546 Code(s): Z98.890 - OTHER SPECIFIED POSTPROCEDURAL STATES; Z87.81 - PERSONAL HISTORY OF (HEALED) TRAUMATIC FRACTURE Status: Acute Current Visit: Yes (5) Weakness SNOMED Code(s): 38459397 Code(s): R53.1 - WEAKNESS Status: Acute Current Visit: Yes (6) Arrhythmia SNOMED Code(s): 662228095 Code(s): I49.9 - CARDIAC ARRHYTHMIA, UNSPECIFIED Status: Chronic Current Visit: Yes (7) Asthma SNOMED Code(s): 587107986 Code(s): J45.909 - UNSPECIFIED ASTHMA, UNCOMPLICATED Status: Chronic Current Visit: Yes (8) Hyperlipidemia SNOMED Code(s): 97832194 Code(s): E78.5 - HYPERLIPIDEMIA, UNSPECIFIED Status: Chronic Current Visit: Yes (9) Hypothyroidism SNOMED Code(s): 42312890 Code(s): E03.9 - HYPOTHYROIDISM, UNSPECIFIED Status: Chronic Current Visit: Yes (10) Obesity (BMI 30.0-34.9) SNOMED Code(s): 571969527569628 Code(s): E66.9 - OBESITY, UNSPECIFIED Status: Chronic Current Visit: Yes - Problem List Review Problem List Initiated/Reviewed/Updated: Yes - Plan Plan:: 1. DC to home on home health, PT/OT. 2. Follow-up with her regular provider in 1 week [facility] orthopedics September 23.
[2021-09-02] MEDS: Spironolactone 25 MG Tab PO SCH (08:34)
[2021-09-02] MEDS: Arformoterol 15 MCG/2 ML Neb Soln INH SCH (08:35)
[2021-09-02] MEDS: Celecoxib 200 MG Cap PO SCH (08:36)
[2021-09-02] MEDS: atorvaSTATin 20 MG Tab PO SCH (08:38)
[2021-09-02] MEDS: Escitalopram 10 MG Tab PO SCH (08:38)
[2021-09-02] MEDS: Potassium Chloride 20 MEQ Tab.ER PO SCH (08:38)
[2021-09-02] MEDS: Enoxaparin 40 MG/0.4 ML Syringe SUBCUT SCH (08:39)
[2021-09-02] MEDS: Calcium Carbonate 500 MG Tablet PO SCH (08:42)
[2021-09-02] MEDS: Polyethylene Glycol 3350 Powder 17 GM Packet PO SCH (08:44)
[2021-09-02] MEDS: Gabapentin 300 MG Cap PO SCH (08:44)
[2021-09-02] MEDS: Montelukast 10 MG Tab PO SCH (08:45)
[2021-09-02] MEDS: Budesonide 0.5 MG/2 ML Neb Susp INH SCH (08:45)
[2021-09-02] MEDS: Tiotropium Bromide 4 GM Inhalation Spray (2.5mcg/1 dose; 10 doses) INH SCH (08:45)
[2021-09-02] MEDS: Metoprolol Succinate 25 MG Tab.ER PO SCH (08:47)
[2021-09-02] MEDS: Topiramate 50 MG Tab PO SCH (08:47)
[2021-09-02] MEDS: Acetaminophen 500 MG Tab PO SCH (08:48)
--- NOTE | 2021-09-02 09:54 | PCM.DCSUM1 ---
Discharge Summary - Hospital Course Free Text/Narrative:: Hospital course-patient was admitted here for PT/OT. Her regular medications were continued as also Lovenox. She will have 9 doses that when she leaves and start aspirin a day. She did well. She broke her left arm and left hip and had a left hip pinning. PT/OT worked with her. They want to keep her longer but she insisted on going home. She had really an uneventful course here. She used a couple oxycodones a day for pain but she thought it was Tylenol. She will be switched to hydrocodone outpatient. [facility] Brief History: 66-year-old lady fractured her left arm and left hip following a mechanical fall. She had ORIF to repair her left arm fracture and has been transferred to swing bed for rehabilitation. Mechanical fall was on 13 August 2021. Patient's hospital course was complicated by minor delirium treated with Haldol which resulted in a long QTc. The symptoms have resolved following treatment. Patient also had blood loss anemia which is now improving. Postop day 1 hemoglobin was 10.8 and was 11.6 this morning. Transferring hospital reports that operative site for the ORIF of the left arm is intact with no bleeding, erythema, signs of infection, or discharge. Patient has chronic pulmonary symptoms including bronchitis and asthma. She has follow-up appointment scheduled with pulmonology. Patient had coronary ablation in 2007 now treated with metoprolol, well controlled. Transferring hospital recommends recheck electrolytes in 3 days. Patient's rhythm was sinus rhythm in the 60s to 70s throughout her stay. Diagnosis: Stroke: No - Discharge Data Discharge Date: 09/02/21 Discharge Disposition: Home, W Home Health Agency 06 Condition: Good - Referral to Home Health Date of Face to Face Encounter: 09/02/21 Reason for Homebound Status: Broken arm and status post broken leg with hip pinning. Primary Care Physician: PCP Not In Area Skilled Need: 1. PT/OT/home safety/ADLs/med management. - Discharge Diagnosis/Problem(s) (1) Acute blood loss anemia SNOMED Code(s): 722689059 ICD Code: D62 - ACUTE POSTHEMORRHAGIC ANEMIA Status: Acute Current Visit: Yes (2) Arm fracture, left SNOMED Code(s): 03515037 ICD Code: S42.302A - UNSP FRACTURE OF SHAFT OF HUMERUS, LEFT ARM, INIT Status: Acute Current Visit: Yes (3) Closed left hip fracture SNOMED Code(s): 142108219 ICD Code: S72.002A - FRACTURE OF UNSP PART OF NECK OF LEFT FEMUR, INIT Status: Acute Current Visit: Yes (4) Status post open reduction and internal fixation (ORIF) of fracture SNOMED Code(s): 992445380 ICD Code: Z98.890 - OTHER SPECIFIED POSTPROCEDURAL STATES; Z87.81 - PERSONAL HISTORY OF (HEALED) TRAUMATIC FRACTURE Status: Acute Current Visit: Yes (5) Weakness SNOMED Code(s): 05463596 ICD Code: R53.1 - WEAKNESS Status: Acute Current Visit: Yes (6) Arrhythmia SNOMED Code(s): 830262518 ICD Code: I49.9 - CARDIAC ARRHYTHMIA, UNSPECIFIED Status: Chronic Current Visit: Yes (7) Asthma SNOMED Code(s): 888473059 ICD Code: J45.909 - UNSPECIFIED ASTHMA, UNCOMPLICATED Status: Chronic Current Visit: Yes (8) Hyperlipidemia SNOMED Code(s): 59725003 ICD Code: E78.5 - HYPERLIPIDEMIA, UNSPECIFIED Status: Chronic Current Visit: Yes (9) Hypothyroidism SNOMED Code(s): 32183178 ICD Code: E03.9 - HYPOTHYROIDISM, UNSPECIFIED Status: Chronic Current Visit: Yes (10) Obesity (BMI 30.0-34.9) SNOMED Code(s): 139155594344983 ICD Code: E66.9 - OBESITY, UNSPECIFIED Status: Chronic Current Visit: Yes - Patient Summary/Data Consults: Consultations 08/20/21 18:42 OT Evaluation and Treatment [CONS] Routine Please Evaluate and Treat. OT Reason for Consult: ADL's This query below is only for informational purposes and is not editable. Admission Diagnosis/Problem: Weakness PT Evaluation and Treatment [CONS] Routine Please Evaluate and Treat. PT Reason for Consult: Strengthening This query below is only for informational purposes and is not editable. Admission Diagnosis/Problem: Weakness - Patient Instructions Diet: Regular Diet as Tolerated Activity: Apply Ice Driving: Do Not Drive Showering/Bathing: May Shower Other/Special Instructions: 1. Recheck with her regular provider in 1 week. 2. Recheck with orthopedic surgery on September 23. Appointments already set up. 2. Home health/PT/OT. - Discharge Plan Prescriptions/Med Rec: Hydrocodone/Acetaminophen [Hydrocodon-Acetaminophn 10-325] 1 each PO Q6H PRN #15 tablet PRN Reason: Pain Enoxaparin [Lovenox] 40 mg SQ Q24H #9 syringe Home Medications: Home Meds Acetaminophen [Tylenol Extra Strength] 1,000 mg PO TID 08/20/21 [History] Aspirin [Ecotrin EC] 81 mg PO DAILY 08/20/21 [History] Azelastine HCl 2 spray NASBOTH DAILY 08/20/21 [History] Benzonatate 200 mg PO TID PRN 08/20/21 [History] Budesonide [Pulmicort] 2 ml INH BID 08/20/21 [History] Calcium Carbonate [Calcium] 600 mg PO DAILY 08/20/21 [History] Celecoxib [CeleBREX] 400 mg PO DAILY 08/20/21 [History] Escitalopram Oxalate [Lexapro] 10 mg PO DAILY 08/20/21 [History] Formoterol [Perforomist] 2 ml INH BID 08/20/21 [History] Gabapentin [Neurontin] 300 mg PO DAILY 08/20/21 [History] Gabapentin [Neurontin] 600 mg PO WITHDINNER 08/20/21 [History] Lansoprazole [Prevacid] 30 mg PO DAILY 08/20/21 [History] Letrozole [Femara] 2.5 mg PO DAILY 08/20/21 [History] Levalbuterol Tartrate [Xopenex HFA] 2 puff PO Q4H PRN 08/20/21 [History] Levothyroxine 25 mcg PO BEDTIME 08/20/21 [History] Melatonin 6 mg PO BEDTIME 08/20/21 [History] Metoprolol Succinate [Toprol XL] 12.5 mg PO DAILY 08/20/21 [History] Montelukast [Singulair] 10 mg PO DAILY 08/20/21 [History] [place]-3 Fatty Acids/Fish Oil [Fish Oil 1,000 mg Capsule] 1 cap PO DAILY 08/20/21 [History] Potassium Chloride [Klor-Con M20] 20 meq PO DAILY 08/20/21 [History] Potassium Chloride [Klor-Con M20] 40 meq PO WITHDINNER 08/20/21 [History] SUMAtriptan 100 mg PO ASDIRECTED 08/20/21 [History] Sennosides/Docusate Sodium [Senna-S 8.6-50 mg Tablet] 1 tab PO BID 08/20/21 [History] Spironolactone [Aldactone] 12.5 mg PO DAILY 08/20/21 [History] Tiotropium [place] [Spiriva Respimat] 2 puff INH DAILY 08/20/21 [History] Topiramate 25 mg PO DAILY 08/20/21 [History] Topiramate 50 mg PO BEDTIME 08/20/21 [History] atorvaSTATin [Lipitor] 20 mg PO DAILY 08/20/21 [History] guaiFENesin [Robitussin] 10 ml PO Q6H PRN 08/20/21 [History] polyethylene glycoL 3350 [MiraLAX] 17 g PO DAILY 08/20/21 [History] traZODone HCl [Trazodone HCl] 50 mg PO BEDTIME 08/20/21 [History] Enoxaparin [Lovenox] 40 mg SQ Q24H #9 syringe 09/02/21 [Rx] Hydrocodone/Acetaminophen [Hydrocodon-Acetaminophn 10-325] 1 each PO Q6H PRN #15 tablet 09/02/21 [Rx] Patient Handouts: Hip Rehabilitation in the Home, Fall Prevention in Hospitals, Adult, Venous Thromboembolism Prevention - Discharge Summary/Plan Comment DC Time >30 min.: No Total # of Minutes for Discharge Time: 15 - Patient Data Vitals - Most Recent: Last Vital Signs Temp 98.6 F 09/02/21 07:34 Pulse 59 L 09/02/21 08:47 Resp 18 09/02/21 07:34 BP 133/83 09/02/21 08:47 Pulse Ox 95 09/02/21 07:34 Weight - Most Recent: 221 lb 8 oz Med Orders - Current: Current Medications Acetaminophen (Acetaminophen 500 Mg Tab) 1,000 mg PO TID [facility] Last Admin: 09/02/21 08:48 Dose: 1,000 mg Documented by: Arformoterol Tartrate (Arformoterol 15 Mcg/2 Ml Neb Soln) 15 mcg INH BID [facility] Last Admin: 09/02/21 08:35 Dose: 15 mcg Documented by: Aspirin (Aspirin 81 Mg Tab.Ec) 81 mg PO DAILY [facility] Atorvastatin Calcium (Atorvastatin 20 Mg Tab) 20 mg PO DAILY [facility] Last Admin: 09/02/21 08:38 Dose: 20 mg Documented by: Bisacodyl (Bisacodyl 10 Mg Supp) 10 mg RECTAL DAILY PRN PRN Reason: Constipation Last Admin: 08/24/21 09:40 Dose: 10 mg Documented by: Budesonide (Budesonide 0.5 Mg/2 Ml Neb Susp) 0.5 mg INH BID [facility] Last Admin: 09/02/21 08:45 Dose: 0.5 mg Documented by: Calcium Carbonate/Glycine (Calcium Carbonate 500 Mg Tablet) 500 mg PO DAILY [facility] Last Admin: 09/02/21 08:42 Dose: 500 mg Documented by: Celecoxib (Celecoxib 200 Mg Cap) 400 mg PO DAILY [facility] Last Admin: 09/02/21 08:36 Dose: 400 mg Documented by: Enoxaparin Sodium (Enoxaparin 40 Mg/0.4 Ml Syringe) 40 mg SUBCUT Q24H [facility] Stop: 09/11/21 23:59 Last Admin: 09/02/21 08:39 Dose: 40 mg Documented by: Escitalopram Oxalate (Escitalopram 10 Mg Tab) 10 mg PO DAILY [facility] Last Admin: 09/02/21 08:38 Dose: 10 mg Documented by: Gabapentin (Gabapentin 300 Mg Cap) 300 mg PO DAILY [facility] Last Admin: 09/02/21 08:44 Dose: 300 mg Documented by: Gabapentin (Gabapentin 600 Mg Tab) 600 mg PO WITHDINNER [facility] Last Admin: 09/01/21 18:21 Dose: 600 mg Documented by: Guaifenesin (Guaifenesin 100 Mg/5 Ml Soln 5 Ml Ud Cup) 200 mg PO Q6H PRN PRN Reason: Cough Last Admin: 08/30/21 23:38 Dose: 200 mg Documented by: Letrozole (Letrozole 2.5 Mg Tab) 2.5 mg PO DAILY [facility] Last Admin: 09/02/21 08:36 Dose: 2.5 mg Documented by: Levalbuterol HCl (Levalbuterol Hcl 1.25 Mg/3 Ml Neb) 1.25 mg INH Q4H PRN PRN Reason: Shortness of Breath Last Admin: 08/30/21 23:19 Dose: 1.25 mg Documented by: Levothyroxine Sodium (Levothyroxine 25 Mcg Tab) 25 mcg PO BEDTIME [facility] Last Admin: 09/01/21 20:36 Dose: 25 mcg Documented by: Melatonin (Melatonin 3 Mg Tab) 6 mg PO BEDTIME [facility] Last Admin: 09/01/21 20:36 Dose: 6 mg Documented by: Metoprolol Succinate (Metoprolol Succinate 25 Mg Tab.Er) 12.5 mg PO DAILY [facility] Last Admin: 09/02/21 08:47 Dose: 12.5 mg Documented by: Montelukast Sodium (Montelukast 10 Mg Tab) 10 mg PO DAILY [facility] Last Admin: 09/02/21 08:45 Dose: 10 mg Documented by: Naloxone HCl (Naloxone 0.4 Mg/Ml Sdv) 0.4 mg IV ASDIRECTED PRN PRN Reason: Other Levalbtuerol Inhaler (*Ptom) 0 each INH Q4H PRN PRN Reason: SHORTNESS OF BREATH Oxycodone HCl (Oxycodone 5 Mg Tab) 2.5 mg PO Q6H PRN PRN Reason: Pain (moderate 4-6) Last Admin: 09/01/21 22:37 Dose: 2.5 mg Documented by: Oxycodone HCl (Oxycodone 5 Mg Tab) 5 mg PO Q6H PRN PRN Reason: Pain (severe 7-10) Last Admin: 08/29/21 17:29 Dose: 5 mg Documented by: Pantoprazole Sodium (Pantoprazole 40 Mg Tab.Cr) 40 mg PO ACBREAKFAST [facility] Last Admin: 09/02/21 06:35 Dose: 40 mg Documented by: Polyethylene Glycol (Polyethylene Glycol 3350 Powder 17 Gm Packet) 17 gm PO DAILY [facility] Last Admin: 09/02/21 08:44 Dose: Not Given Documented by: Potassium Chloride (Potassium Chloride 20 Meq Tab.Er) 20 meq PO DAILY [facility] Last Admin: 09/02/21 08:38 Dose: 20 meq Documented by: Potassium Chloride (Potassium Chloride 20 Meq Tab.Er) 40 meq PO WITHDINNER [facility] Last Admin: 09/01/21 18:19 Dose: 40 meq Documented by: Senna/Docusate Sodium (Docusate Sodium/Sennosides 50-8.6 Mg Tab) 1 tab PO BID [facility] Last Admin: 09/02/21 08:43 Dose: 1 tab Documented by: Spironolactone (Spironolactone 25 Mg Tab) 12.5 mg PO DAILY [facility] Last Admin: 09/02/21 08:34 Dose: 12.5 mg Documented by: Sumatriptan Succinate (Sumatriptan 50 Mg Tab) 100 mg PO ASDIRECTED PRN PRN Reason: HEADACHE Last Admin: 09/02/21 06:37 Dose: 100 mg Documented by: Tiotropium [place] (Tiotropium [place] 4 Gm Inhalation [place] (2.5mcg/1 Dose; 10 Doses)) 0 gm INH DAILY [facility] Last Admin: 09/02/21 08:45 Dose: 4 spray Documented by: Topiramate (Topiramate 50 Mg Tab) 50 mg PO BEDTIME [facility] Last Admin: 09/01/21 20:37 Dose: 50 mg Documented by: Topiramate (Topiramate 50 Mg Tab) 25 mg PO DAILY [facility] Last Admin: 09/02/21 08:47 Dose: 25 mg Documented by: Trazodone HCl (Trazodone 50 Mg Tab) 50 mg PO BEDTIME [facility] Last Admin: 09/01/21 20:38 Dose: 50 mg Documented by: Discontinued Medications Albuterol (Albuterol 8 Gm Inhaler) 0 gm INH Q4H PRN PRN Reason: Dyspnea Last Admin: 08/23/21 21:55 Dose: 2 puff Documented by: Albuterol (Albuterol 8 Gm Inhaler) 0 gm INH Q4H PRN PRN Reason: Dyspnea Influenza Virus Vaccine (Flu Vacc [id number](6mos Up)/Pf 60 Mcg/0.5 Ml Syringe) 60 mcg IM .ONCE ONE Stop: 08/22/21 09:16 Last Admin: 08/22/21 15:52 Dose: 60 mcg Documented by: Non-Formulary Medication (Azelastine Hcl [Azelastine Hcl]) 2 spray NASBOTH DAILY [facility] Sumatriptan Succinate (Sumatriptan 50 Mg Tab) 100 mg PO DAILY PRN PRN Reason: HEADACHE Last Admin: 08/21/21 02:29 Dose: 100 mg Documented by:
[2021-09-12] MEDS ORDERED: Aspirin 81 MG Tab.EC PO SCH (09:00)
== END 2021-09-02 12:25 | disposition home health service (06) | DRG 948 ==
LOC: FB.MS 12:23
PROVIDERS: ADMIT Student in an Organized Health Care Education/Training Program; ATTEND Family Medicine
DX: R53.1 Weakness (principal); D62 Acute posthemorrhagic anemia; I50.32 Chronic diastolic (congestive) heart failure; S52.022D Displaced fracture of olecranon process without intraarticular extension of left ulna, subsequent encounter for closed fracture with routine healing; S72.002D Fracture of unspecified part of neck of left femur, subsequent encounter for closed fracture with routine healing; I49.9 Cardiac arrhythmia, unspecified; E78.5 Hyperlipidemia, unspecified; E03.9 Hypothyroidism, unspecified; E66.9 Obesity, unspecified; W19.XXXD Unspecified fall, subsequent encounter; K21.9 Gastro-esophageal reflux disease without esophagitis; N93.8 Other specified abnormal uterine and vaginal bleeding; Z98.890 Other specified postprocedural states; Z87.81 Personal history of (healed) traumatic fracture; Z79.82 Long term (current) use of aspirin; Z79.899 Other long term (current) drug therapy; Z79.890 Hormone replacement therapy; Z91.048 Other nonmedicinal substance allergy status; Z88.8 Allergy status to other drugs, medicaments and biological substances; Z68.33 Body mass index [BMI] 33.0-33.9, adult; Z85.3 Personal history of malignant neoplasm of breast; I11.0 Hypertensive heart disease with heart failure; J44.9 Chronic obstructive pulmonary disease, unspecified; R41.0 Disorientation, unspecified; E83.39 Other disorders of phosphorus metabolism; G47.33 Obstructive sleep apnea (adult) (pediatric); G43.909 Migraine, unspecified, not intractable, without status migrainosus; G47.00 Insomnia, unspecified; F32.A Depression, unspecified
CPT/HCPCS: 36415; 80048; 85025; 90686; 94640; 97110-GO; 97110-GP; 97116-GP; 97162-GP; 97530-GO; 97530-GP; 97535-GO; A9270-GY; G0008; J1650; J7605; J7612-GY